=== PATIENT | male | born 1945 | race Caucasian/White ===

== ENCOUNTER 2019-07-24 07:37 | Observation (INO) | payer OTHER, SELFPAY ==
[2019-07-24] VITALS (11 sets, daily range): BP systolic 110–160; BP diastolic 55–83; PULSE 49–63; RESP 14–20; TEMP 36.4–36.9; O2SAT 92–97; BMI 35.9
--- NOTE | 2019-07-24 07:41 | ED_ITS ---
Entered by Haily Escobar, acting as scribe for Jozef Jason DO HPI - Chest Pain General: Chief Complaint: Chest Pain Stated Complaint: CP AFTER CHEMICAL EXPOSURE Time Seen by Provider: 07/24/19 07:43 Source: patient Mode of arrival: ambulatory Limitations: no limitations History of Present Illness: HPI narrative: 74 yo male presents with chest pain . pt states this started today. pt did fall today, denies injuries. pt states when walking or doing things around the house makes the pain worse and rest makes this better. Patient is concerned that this started after he has been working in a house where he thought there was some dust chemicals or mold that he may have been exposed to. He relates he gets chest pain with exertion when he stops and rests it makes it better within a few minutes. He has no known previous history of coronary artery disease. Denies fever sweats or chills denies productive cough. MD complaint: chest pain Onset (ago): day(s) (today) Timing of current episode: constant and still present Onset: during exertion Pain location: substernal Pain radiation: none Severity: mild Quality: aching Relieving factors: rest Exacerbating factors: exertion Associated symptoms: Reports other (fall); Deny abdominal pain, dyspnea, fever(s), nausea or vomiting Treatment prior to arrival: none Review of Systems General: Reports: 10 or more systems reviewed and unremarkable except in HPI and below Const: Denies: fever, chills, body aches, change in appetite, fatigue or malaise ENMT: Denies: throat pain, ear pain, nasal discharge or nasal congestion Card: Reports: chest pain and shortness of breath on exertion; Denies: edema or shortness of breath when lying down Resp: Denies: shortness of breath, productive cough or non-productive cough GI: Denies: abdominal pain, nausea, vomiting, vomiting blood, coffee grounds in vomit, diarrhea, constipation, bloating, blood in stool or black tarry stool : Denies: flank pain, painful urination, urinary frequency or urinary urgency Skin/Breast: Denies: rash or itching [facility] ED PFSH: Medical History Benign essential hypertension with target blood pressure below 140/90 Chlorthalidone added BPH (benign prostatic hyperplasia) Chronic back pain COPD (chronic obstructive pulmonary disease) COPD exacerbation No evidence of COPD exacerbation Dyslipidemia Elevated cholesterol noted. Will refer to primary care provider Hypertension PTSD (post-traumatic stress disorder) Surgical History History of appendectomy History of back surgery Family History Mother Cancer Social History Smoking and tobacco status: former smoker Alcohol intake: never Physical Exam Const: COMMON NORMALS: no apparent distress GENERAL APPEARANCE: cooperative and comfortable ORIENTATION/CONSCIOUSNESS: Yes awake, Yes oriented to person, Yes oriented to place and Yes oriented to time HENMT: COMMON NORMALS: normocephalic, head/scalp atraumatic, hearing grossly normal bilaterally, external ears normal, EAC's normal, TM's normal bilaterally, nasal mucous membranes and turbinates normal, moist oral mucous membranes and oropharynx normal HEAD & SCALP: normocephalic and atraumatic NOSE: nasal mucous membranes and turbinates normal EXTERNAL EAR: Yes external ears normal EXTERNAL AUDITORY CANAL: EAC's normal TYMPANIC MEMBRANE: TM's normal bilaterally Eye: COMMON NORMALS: PERRL, EOMs intact bilaterally, conjunctivae normal and no scleral icterus CONJUNCTIVA: Yes conjunctivae normal PUPIL: Yes PERRL Neck/C-Spine: COMMON NORMALS: full ROM, no lymphadenopathy, supple and no JVD Lymph: LYMPHATIC: no lymphadenopathy noted and no lymphedema noted Resp: COMMON NORMALS: normal respiratory effort, no retractions, no use of accessory muscles and clear to auscultation bilaterally AUSCULTATION: clear to auscultation bilaterally Cardio: COMMON NORMALS: no JVD GI: COMMON NORMALS: soft to palpation and no hepatosplenomegaly AUSCULTATION: Yes normoactive bowel sounds PALPATION: Yes soft, No tender, No guarding and Yes no hepatosplenomegaly Extremity: COMMON NORMALS: normal to inspection, normal capillary refill, no clubbing, cyanosis or edema, no calf tenderness and no pedal edema Neuro: SENSORIUM/ORIENTATION: Yes oriented to person, Yes oriented to place and Yes oriented to time Skin: COMMON NORMALS: no rashes or lesions noted GENERAL SKIN EXAM: no rashes or lesions noted Course ED course: Discussed with the patient a more concerned of the reports of chest pain with exertion and relieved by rest. He does not show any signs of any kind of hypersensitive pneumonitis or pneumonia. He should have a full cardiac evaluation discussed Dr. Shaw he will admit patient for rule out and further evaluation. Vital Signs: Vital signs: Vital Signs Temperature 97.9 F 07/25/19 12:33 Pulse Rate 64 07/25/19 12:33 Respiratory Rate 20 H 07/25/19 12:33 Blood Pressure 120/73 07/25/19 12:33 Pulse Oximetry 95 07/25/19 12:33 MDM - Chest Pain Lab Data: Labs: Lab Results 07/24/19 07/24/19 07/24/19 Range/Units 08:03 08:41 08:41 WBC 6.9 (4.0-10.0) 10^3/ uL RBC 4.40 (4.1-5.3) 10^6/u L Hgb 14.3 (11.7-16.6) g/dL Hct 43.2 (42.0-52.0) % MCV 98.2 H (80-94) fL MCH 32.5 (28.0-34.0) pg MCHC 33.1 (30.0-36.0) g/dL RDW 13.2 (12.1-15.1) % Plt Count 146 (130-400) 10^3/c mm MPV 12.3 H (7.4-10.4) fL Neut % (Auto) 68.5 % Lymph % (Auto) 21.8 % [place] % (Auto) 7.0 % Eos % (Auto) 2.0 % Baso % (Auto) 0.6 % Neut # (Auto) 4.7 (1.8-7.7) 10^3/u L Lymph # (Auto) 1.5 (0.8-4.8) 10^3/u L [place] # (Auto) 0.5 (0.2-0.9) 10^3/u L Eos # (Auto) 0.1 (0.0-0.8) 10^3/u L Baso # (Auto) 0.0 (0.0-0.1) 10^3/u L Nucleated RBC % (a uto) 0 % Nucleated RBCs # 0.0 /100WBC Sodium 133 L (136-145) mmol/L Potassium 4.7 (3.5-5.1) mmol/L Chloride 97 L (98-107) mmol/L Carbon Dioxide 26 (22-29) mmol/L Anion Gap 14.7 (5-19) BUN 14 (8-23) mg/dL Creatinine 0.9 (0.7-1.2) mg/dL Glucose 132 H (65-115) mg/dL Calcium 9.4 (8.5-10.5) mg/dL Total Bilirubin 0.3 (0.15-1.2) mg/dL AST 16 (0-40) U/L ALT 26 (0-41) U/L Alkaline Phosphata se 74 (40-130) IU/L Troponin T Baselin e 9 (0-15) ng/mL Troponin T 120 [place] (0-15) ng/mL Delta Troponin T (0-10) ABS# Total Protein 6.8 (6.6-8.7) g/dL Albumin 3.9 (3.5-5.2) g/dL Globulin 2.9 (1.3-4.6) g/dL TSH (0.27-4.20) uIU/ mL 07/24/19 07/24/19 Range/Units 10:48 10:48 WBC (4.0-10.0) 10^3/ uL RBC (4.1-5.3) 10^6/u L Hgb (11.7-16.6) g/dL Hct (42.0-52.0) % MCV (80-94) fL MCH (28.0-34.0) pg MCHC (30.0-36.0) g/dL RDW (12.1-15.1) % Plt Count (130-400) 10^3/c mm MPV (7.4-10.4) fL Neut % (Auto) % Lymph % (Auto) % [place] % (Auto) % Eos % (Auto) % Baso % (Auto) % Neut # (Auto) (1.8-7.7) 10^3/u L Lymph # (Auto) (0.8-4.8) 10^3/u L [place] # (Auto) (0.2-0.9) 10^3/u L Eos # (Auto) (0.0-0.8) 10^3/u L Baso # (Auto) (0.0-0.1) 10^3/u L Nucleated RBC % (a uto) % Nucleated RBCs # /100WBC Sodium (136-145) mmol/L Potassium (3.5-5.1) mmol/L Chloride (98-107) mmol/L Carbon Dioxide (22-29) mmol/L Anion Gap (5-19) BUN (8-23) mg/dL Creatinine (0.7-1.2) mg/dL Glucose (65-115) mg/dL Calcium (8.5-10.5) mg/dL Total Bilirubin (0.15-1.2) mg/dL AST (0-40) U/L ALT (0-41) U/L Alkaline Phosphata se (40-130) IU/L Troponin T Baselin e (0-15) ng/mL Troponin T 120 [place] 7.68 (0-15) ng/mL Delta Troponin T -1.32 L (0-10) ABS# Total Protein (6.6-8.7) g/dL Albumin (3.5-5.2) g/dL Globulin (1.3-4.6) g/dL TSH 1.62 (0.27-4.20) uIU/ mL Imaging Data^: CXR: Radiologist's impression: [address] [address] XRay Report Signed Patient: Mony Yan #: [id number] : 1945cct#:[id number] Age/Sex: 74 / MADM Date: 07/24/19 Loc: ERRoom/Bed: Attending Dr: Ordering Provider/Ordering MD: Jozef Jason DO Date of Service: 07/24/19 Procedure(s): XR chest 1V portable [id number] Accession Number(s): [id number] Report Number: [id number] PROCEDURE INFORMATION: Exam: XR Chest, 1 View Exam date and time: 07/24/2019 8:13 AM Age: 74 years old Clinical indication: Chest pain; Additional info: Chest pain, sprayed mold with chemical w/o mask TECHNIQUE: Imaging protocol: XR of the chest Views: 1 view. COMPARISON: No relevant prior studies available. FINDINGS: Lungs: Unremarkable. No consolidation. Pleural space: Unremarkable. No pleural effusion. No pneumothorax. Heart/Mediastinum: Unremarkable. No cardiomegaly. Bones/joints: Unremarkable. XR/XR chest 1V portable [id number] IMPRESSION: No acute findings. Dictated By:Gage Luna MD Signed By:Gage Luna MDSigned Date/Time:07/24/19 1022 Discharge Plan Discharge Patient Disposition: Admitted As Inpatient Admit Provider: Niles Shaw Clinical Impression: Chest pain, Benign essential hypertension with target blood pressure below 140/90 Condition: Stable Discharge Orders: Discharge Order (Routine); Ordered 07/25/19 Ordered By: Niles Shaw Discharge Diet: Cardiac Discharge Activity: Increase activity as tolerated Interventions: ED Discharge Assessment Last Done: 07/24/19 12:53 Discharge Date/Time: 07/24/19 12:53 Coding Level of Care Code ED Floater Operator for Chg Fwd Exam Comprehensive The documentation recorded by the Shawn pa Bridget Annette, parag re flects the service I personally performed and the decisions made by Eren almaraz Curtis L, DO Jul 24, 2019 07:37
--- NOTE | 2019-07-24 08:01 | ECG_ITS ---
Measurements Intervals [place] Rate: 60 P: -56 MT: 274 QRS: 15 QRSD: 157 T: 76 QT: 458 QTc: 461 SINUS RHYTHM WITH FIRST DEGREE AV BLOCK LEFT BUNDLE BRANCH BLOCK No previous ECG available for comparison Electronically Signed On 07-24-2019 11:09:01 [employer]LE[employer] SYSTEM OPERATOR by Suzy Knight M.D. [id number]
--- NOTE | 2019-07-24 08:01 | XRR_ITS ---
PROCEDURE INFORMATION: Exam: XR Chest, 1 View Exam date and time: 07/24/2019 8:13 AM Age: 74 years old Clinical indication: Chest pain; Additional info: Chest pain, sprayed mold with chemical w/o mask TECHNIQUE: Imaging protocol: XR of the chest Views: 1 view. COMPARISON: No relevant prior studies available. FINDINGS: Lungs: Unremarkable. No consolidation. Pleural space: Unremarkable. No pleural effusion. No pneumothorax. Heart/Mediastinum: Unremarkable. No cardiomegaly. Bones/joints: Unremarkable. XR/XR chest 1V portable [id number] IMPRESSION: No acute findings.
--- NOTE | 2019-07-24 08:20 | PC.NURSE ---
portable xray at bedside
[2019-07-24] MEDS: aspirin 81 mg Chew Tablet 324 MG PO (08:26)
[2019-07-24 08:35] LABS: Basophils % 0.6 %; Eosinophils # 0.1 10^3/uL (0.0-0.8); Hematocrit 43.2 % (42.0-52.0); Hemoglobin 14.3 g/dL (11.7-16.6); Lymphocytes # 1.5 10^3/uL (0.8-4.8); Lymphocytes % 21.8 %; Mean Corpuscular HGB Conc 33.1 g/dL (30.0-36.0); Mean Corpuscular Hemoglobin 32.5 pg (28.0-34.0); Mean Corpuscular Volume 98.2 fL (80-94); Mean Platelet Volume 12.3 fL (7.4-10.4); Monocytes # 0.5 10^3/uL (0.2-0.9); Neutrophils # 4.7 10^3/uL (1.8-7.7); Neutrophils % 68.5 %; Nucleated Red Blood Cells % 0 %; Platelet Count 146 10^3/cmm (130-400); Red Cell Distribution Width 13.2 % (12.1-15.1); White Blood Count 6.9 10^3/uL (4.0-10.0)
[2019-07-24 09:00] LABS: Alanine Aminotransferase 26 U/L (0-41); Albumin Level 3.9 g/dL (3.5-5.2); Alkaline Phosphatase 74 IU/L (40-130); Anion Gap 14.7 (5-19); Aspartate Amino Transferase 16 U/L (0-40); Blood Urea Nitrogen 14 mg/dL (8-23); Calcium 9.4 mg/dL (8.5-10.5); Carbon Dioxide 26 mmol/L (22-29); Chloride 97 mmol/L (98-107); Globulin 2.9 g/dL (1.3-4.6); Glucose 132 mg/dL (65-115); Potassium 4.7 mmol/L (3.5-5.1); Sodium 133 mmol/L (136-145); Total Bilirubin 0.3 mg/dL (0.15-1.2); Total Protein 6.8 g/dL (6.6-8.7)
[2019-07-24 09:03] LABS: Troponin(5th) Baseline 9 ng/mL (0-15)
[2019-07-24 11:14] LABS: Troponin 5 2HR 7.68 ng/mL (0-15)
[2019-07-24 11:28] LABS: Troponin 5 2HR Delta -1.32 ABS# (0-10)
[2019-07-24] MEDS: enoxaparin 120 mg/0.8 mL Syringe 110 MG SUBCUT (11:33)
--- NOTE | 2019-07-24 12:58 | PM.HP ---
Providers/Chief Complaint Admitting Physician: Niles Shaw MD Primary Care Provider: Steve Cantu DO Chief Complaint: CHEST PAIN History of Present Illness Melvin Yan is a 74 year old male who presented to the hospital with complaints of chest discomfort and shortness of breath. He reports he believes this started a week ago when he had some mold exposure as he was cleaning some mold off a surface in a house. He reports since then with any exertion he will get short of breath, and have some chest discomfort. He initially told me the discomfort seems to be when he takes a breath, but then relates that is a heavy feeling in his chest when he exerts himself. Occasionally he will get some discomfort down his right arm. He reports he will have an occasional cough. He denies any hemoptysis. He reports no fever. He has not noticed any wheezing. He reports he feels fine when he sits still. He denies any vomiting, diarrhea, or other illness. He does not know of any flu exposure. He states he had a nuclear stress test performed a little over 6 months ago, at [facility]. He states this was preoperative and he was not having symptoms at that time. Review of Systems General: Reports: 10 or more systems reviewed and unremarkable except in HPI and below Const: Denies: fever or chills Eyes: Denies: blurry vision ENMT: Denies: throat pain Card: Reports: chest pain and shortness of breath on exertion Resp: Reports: shortness of breath GI: Denies: abdominal pain, nausea or vomiting : Denies: flank pain Musc: Reports: back pain Skin/Breast: Denies: rash Neuro: Denies: headache Psych: Denies: anxiety Endo: Denies: excessive urination Joseph/Lymph: Denies: easy bleeding All/Imm: Denies: hives Medications/Allergies Home Medications Medication Instructions Recorded Confirmed Last Taken Type Fiber-Tabs 3 tab PO BID 07/24/19 07/24/19 Unknown History Fish Oil 1 cap PO BID 07/24/19 07/24/19 Unknown History albuterol sulfate [ProAir HFA] 2 puff INHALATION QID PRN 07/24/19 07/24/19 Unknown History amlodipine [Norvasc] 10 mg PO DAILY 07/24/19 07/24/19 Unknown History benazepril 20 mg PO BID 07/24/19 07/24/19 Unknown History budesonide-formoterol [Symbicort] 2 puff INHALATION BID 07/24/19 07/24/19 Unknown History cetirizine [Zyrtec] 10 mg PO DAILY 07/24/19 07/24/19 Unknown History cyclobenzaprine 10 mg PO TID PRN 07/24/19 07/24/19 Unknown History garlic 2 tab PO DAILY 07/24/19 07/24/19 Unknown History hydrocodone-acetaminophen [[place]] See Rx Instructions .ROUTE .COMPLEX 07/24/19 07/24/19 Unknown History metoprolol succinate 100 mg PO BID 07/24/19 07/24/19 Unknown History multivitamin [Multiple Vitamins] 1 tab PO DAILY 07/24/19 07/24/19 Unknown History potassium gluconate 1 tab PO DAILY 07/24/19 07/24/19 Unknown History sertraline 100 mg PO DAILY 07/24/19 07/24/19 Unknown History tamsulosin [Flomax] 0.4 mg PO DAILY 07/24/19 07/24/19 Unknown History Allergies Allergy/AdvReac Type Severity Reaction Status Date / Time No Known Allergies Allergy Verified 07/24/19 09:04 PFSH Acute PFSH: Medical History (Updated 07/24/19 @ 13:04 by Niles Shaw MD) BPH (benign prostatic hyperplasia) Chronic back pain COPD (chronic obstructive pulmonary disease) Hypertension PTSD (post-traumatic stress disorder) Surgical History (Updated 07/24/19 @ 13:02 by Niles Shaw MD) History of appendectomy History of back surgery Family History (Updated 07/24/19 @ 13:02 by Niles Shaw MD) Mother Cancer Social History (Updated 07/24/19 @ 13:02 by Niles Shaw MD) Smoking and tobacco status: former smoker Alcohol intake: never Substance/Drug Use: never Supplemental PFSH Information: Family history of colon cancer. Vitals/I&O/Wt Last Vital Signs Pulse 53 L 07/24/19 11:35 Resp 16 07/24/19 11:35 BP 135/70 07/24/19 11:35 Pulse Ox 95 07/24/19 11:35 Weight last 48 hrs Weight 113.398 kg Physical Exam Narrative: EXAM NARRATIVE: General exam demonstrates an obese white male in no apparent distress, denying any chest discomfort HEENT: Pupils equally round. Oropharynx clear. Neck is supple no lymphadenopathy or thyromegaly Cardiovascular regular rate and rhythm with a 2/6 systolic murmur heard best in the aortic area Lungs clear no wheezing or crackles Abdomen is soft with positive bowel sounds. No obvious organomegaly was deferred Extremities no cyanosis clubbing or edema, cap refill brisk Skin no rash Neuro no focal deficits Data : 07/24/19 08:03 07/24/19 08:41 Other data: Troponin is negative. Chest x-ray shows no infiltrate EKG demonstrates sinus bradycardia, left bundle branch block A&P Assessment and plan (1) Chest pain: Exertional symptoms are somewhat concerning for angina. Unfortunately we do not have the ability to do nuclear stress testing this weekend. Initial troponins are negative. Continue to trend troponin Check echocardiogram secondary to heart murmur, chest discomfort Check TSH Cardiology consultation Aspirin Continue beta-joe Check lipid profile Telemetry Nitroglycerin as needed Observation patient Status: Acute Code(s): R07.9 - Chest pain, unspecified Additional A&P Information COPD, no evidence of exacerbation Chronic back pain Hypertension Obesity History of PTSD DVT prophylaxis with Lovenox Full code Request records from last stress test. Attestations Medical Necessity Statement*: Will need less than 2 midnight stay for evaluation of chest discomfort. Coding Level of Care Code Acute Music Engineer for g Manuel Diagnoses Chest pain R07.9
--- NOTE | 2019-07-24 14:01 | ECG_ITS ---
Measurements Intervals [place] Rate: 50 P: -30 ME: 292 QRS: 15 QRSD: 156 T: 60 QT: 499 QTc: 458 SINUS BRADYCARDIA WITH FIRST DEGREE AV BLOCK LEFT BUNDLE BRANCH BLOCK [120+ ms QRS DURATION, 80+ ms Q/S IN V1/V2, 85+ ms R IN I/aVL/V5/V6] No previous ECG available for comparison Electronically Signed On 07-24-2019 11:13:51 LEASE BROKER by Suzy Knight M.D. [email or web address]
[2019-07-24 14:09] LABS: Thyroid Stimulating Hormone 1.62 uIU/mL (0.27-4.20)
--- NOTE | 2019-07-24 14:49 | PM.CONSULT ---
Providers/Reason For Consult Consulting Physican/Specialty*: MAVERICK Dueñas MD /cardiology Reason for Consult*: Patient with chest pain/shortness of breath. History of hypertension/dyslipidemia Attending Physician: Niles Shaw MD Primary Care Provider: Steve Cantu DO History of Present Illness History of Present Illness Melvin Yan is a 74 year old male presenting with shortness of breath and chest discomfort. Mr. Yan has a history of hypertension and dyslipidemia. He recently had a bout of respiratory infection,? Pneumonia. He was treated with antibiotics and almost got over it. Last Saturday, he was spraying some chemicals for mold on the wall of his bedroom. He started getting short of breath on the following day. The symptoms gradually got worse for the last few days. He also was having some chest tightness/pain intermittently that get worse with breathing. He did not have any fever or chills. But he was having a cough. The cough is mostly dry. The pain was across the chest. No other associated symptoms or radiation of pain. He has no history for any coronary disease, myocardial infarction or congestive heart failure. He had a stress test in November of last year at the [facility] as part of the preop evaluation for some urological procedures. He also had an echocardiogram at that time. Details are not available. He has a history of heart murmur. He has been taking medication for the high blood pressure. But he refused to take any medicine for the cholesterol. The patient seems to think that the cholesterol medicines are useless and the pharmaceutical companies are trying to make money out of it!. Review of Systems Narrative: CONSTITUTIONAL: No fever or chills. EYES: No blurring of vision or other visual disturbances lately. ENT: No hoarseness of voice, auditory disturbances or sore throat. CARDIOVASCULAR: As mentioned above. RESPIRATORY: History of COPD with recurrent exacerbations. Cough. GASTROINTESTINAL: No hematemesis or melena. GENITOURINARY: History of ureteric obstruction INTEGUMENTARY: No skin rashes or history of skin cancer. NEURO: No transient ischemic attacks or amaurosis. PSYCHIATRIC: HEMATOLOGIC: No bleeding disorders or significant anemia. ENDOCRINE: No history of polyuria or polydipsia. MUSCULOSKELETAL: Chronic back pain ALLERGY/IMMUNOLOGY: As mentioned above. Meds/Allergies Home Medications and Allergies Home Medications Medication Instructions Recorded Confirmed Type Fiber-Tabs 3 tab PO BID 07/24/19 07/24/19 History Fish Oil 1 cap PO BID 07/24/19 07/24/19 History albuterol sulfate [ProAir HFA] 2 puff INHALATION QID PRN 07/24/19 07/24/19 History amlodipine [Norvasc] 10 mg PO DAILY 07/24/19 07/24/19 History benazepril 20 mg PO BID 07/24/19 07/24/19 History budesonide-formoterol [Symbicort] 2 puff INHALATION BID 07/24/19 07/24/19 History cetirizine [Zyrtec] 10 mg PO DAILY 07/24/19 07/24/19 History cyclobenzaprine 10 mg PO TID PRN 07/24/19 07/24/19 History garlic 2 tab PO DAILY 07/24/19 07/24/19 History hydrocodone-acetaminophen [[place]] See Rx Instructions .ROUTE .COMPLEX 07/24/19 07/24/19 History metoprolol succinate 100 mg PO BID 07/24/19 07/24/19 History multivitamin [Multiple Vitamins] 1 tab PO DAILY 07/24/19 07/24/19 History potassium gluconate 1 tab PO DAILY 07/24/19 07/24/19 History sertraline 100 mg PO DAILY 07/24/19 07/24/19 History tamsulosin [Flomax] 0.4 mg PO DAILY 07/24/19 07/24/19 History Allergies Allergy/AdvReac Type Severity Reaction Status Date / Time No Known Allergies Allergy Verified 07/24/19 09:04 Current Medications Current Medications Acetaminophen (Tylenol) 650 mg PO Q6H PRN PRN Reason: Mild/Mod Pain Or Temp >/= 101 Hydrocodone Bitart/Acetaminophen ([place] 10-325 Mg) 0.5 - 1 tab PO BID PRN PRN Reason: PAIN Albuterol Sulfate (Albuterol) 2.5 mg INHALATION Q4H.RESPIRATORY PRN PRN Reason: SHORTNESS OF BREATH Amlodipine Besylate (Norvasc) 10 mg PO DAILY SUPA Cetirizine HCl (Zyrtec) 10 mg PO DAILY SUPA Cyclobenzaprine HCl (Flexeril) 10 mg PO TID PRN PRN Reason: Spasms Enoxaparin Sodium (Lovenox) 40 mg SUBCUT Q24H SUPA Lisinopril (Prinivil) 20 mg PO BID SUPA Metoprolol Succinate (Toprol Xl) 100 mg PO BID SUPA Nitroglycerin (Nitrostat) 0.4 mg SUBLINGUAL Q5M PRN PRN Reason: CHEST PAIN Ondansetron HCl (Zofran) 4 mg IVP Q6H PRN PRN Reason: vomiting, or N/V if npo Fluticasone/Salmeterol (Advair Diskus 500-50) 1 puff INHALATION BID.RESPIRATORY SUPA Sertraline HCl (Zoloft) 100 mg PO DAILY SUPA Tamsulosin HCl (Flomax) 0.4 mg PO DAILY SUPA PFSH Acute PFSH: Medical History (Updated 07/24/19 @ 15:52 by Lisset Dueñas MD) Benign essential hypertension with target blood pressure below 140/90 BPH (benign prostatic hyperplasia) Chronic back pain COPD (chronic obstructive pulmonary disease) COPD exacerbation Dyslipidemia Hypertension PTSD (post-traumatic stress disorder) Surgical History History of appendectomy History of back surgery Family History Mother Cancer Social History Smoking and tobacco status: former smoker Alcohol intake: never Substance/Drug Use: never Vitals/I&O/Wt Last Vital Signs Temp 977.0 F H 07/24/19 13:38 Pulse 58 L 07/24/19 13:38 Resp 20 H 07/24/19 13:38 BP 160/79 07/24/19 13:38 Pulse Ox 96 07/24/19 13:38 Weight last 48 hrs Weight 250 lb Physical Exam Narrative: EXAM NARRATIVE: GENERAL: The patient is alert and oriented times three. Not in any acute distress. HEENT: No significant pallor, icterus or lymphadenopathy. The pupils are reactant to light. Oral cavity: There are no mucous membrane lesions. Funduscopic examination: The fundus is not visualized NECK: Trachea appears to be central. No masses noted. No JVD or thyromegaly appreciated. No carotid bruit. RESPIRATORY: Chest is symmetrical. No intercostals muscle retraction or any accessory muscle activation. There is no chest wall tenderness. Breath sounds are heard bilaterally. Scattered expiratory wheezing. Occasional coarse crackles. No evidence of consolidation. BREASTS: Deferred. HEART: The PMI could not be palpated. No other palpable precordial events. No palpable precordial events. S1 and S2 are normal. No S3 or S4 heard. No pericardial rub or any click heard. ABDOMEN: No vessel pulsations or distention. No tenderness. No organomegaly appreciated. No abdominal bruit. Bowel sounds are normally heard. : Deferred. RECTAL: Deferred. LYMPHATIC: No lymphadenopathy noted in the neck or groin. EXTREMITIES: No edema or cyanosis. No clubbing. The pulses are symmetrical bilaterally. The radial, femoral, dorsalis pedis and the posterior tibial pulses are palpated and found to be in good volume and amplitude. MUSCULOSKELETAL: No acute joint deformities or swelling SKIN: There are no significant scars or skin rash noted. NEUROPSYCHIATRIC: The patient is alert and oriented x3. Appears to be in a good mood. The higher functions are grossly within normal limits. No tremors or rigidity noted. Data Labs: Other Labs: Abnormal lab results 07/24/19 07/24/19 07/24/19 Range/Units 08:03 08:41 10:48 MCV 98.2 H (80-94) fL MPV 12.3 H (7.4-10.4) fL Sodium 133 L (136-145) mmol/L Chloride 97 L (98-107) mmol/L Glucose 132 H (65-115) mg/dL Delta Troponin T -1.32 L (0-10) ABS# Imaging^: CXR: My impression: Normal cardiac silhouette. No lung infiltrates. No acute pathology noted EKG^: EKG 1: My Interpretation: Normal sinus rhythm with left bundle branch block pattern. First-degree AV block. No other significant changes were noted A&P Assessment and plan (1) Chest pain: Patient chest pain is very atypical. He has a pleuritic component for the pain. In view of the multiple risk factors for coronary disease, possibility of coronary ischemia causing this is a consideration. Currently he seems to be stable. He may have some occasional pleuritic type of pain. The EKG is uninterpretable due to baseline changes. No evidence of myocardial injury. For further evaluation of his symptoms, an echocardiogram would be helpful. We will try to get the stress test report from [facility] Status: Acute Qualifiers: Chest pain type: precordial pain Qualified Code(s): R07.2 - Precordial pain Code(s): R07.9 - Chest pain, unspecified (2) COPD exacerbation: May optimize the bronchodilator treatment. I may do a BMP to evaluate for any CHF. Optimize the antihypertensive medications. Status: Acute Code(s): J44.1 - Chronic obstructive pulmonary disease with (acute) exacerbation (3) Dyslipidemia: Patient is known to have dyslipidemia for many years. Take any statins. Current lipid profile is not known. Status: Acute Code(s): E78.5 - Hyperlipidemia, unspecified (4) Benign essential hypertension with target blood pressure below 140/90: Currently he has stage II hypertension. We will try to optimize the antihypertensive medications. I may add chlorthalidone 25 mg p.o. daily in addition to the current medications, for better control of the blood pressure. Status: Acute Code(s): I10 - Essential (primary) hypertension Additional A&P Information Patient has a history of posttraumatic stress disorder. No history for any severe peripheral artery disease. After reviewing the above test results and also based on the patient's clinical progress, further recommendations will be made. Thank you for the opportunity to evaluate this patient and make these recommendations Coding Level of Care Code Acute Drafter Detail for Lalo Jackson Diagnoses Chest pain R07.2 Chest pain type: precordial pain COPD exacerbation J44.1 Dyslipidemia E78.5 Benign essential hypertension with target blood pressure below 140/90 I10
[2019-07-24 15:46] LABS: Troponin 5 6HR 7.47 ng/mL (0-15)
[2019-07-24 15:58] LABS: Troponin 5 6HR Delta -1.53 ng/L (0-12)
[2019-07-24] MEDS: metoprolol succinate ER (24 HR) 100 mg Tablet PO (17:40)
[2019-07-24] MEDS: lisinopril 20 mg Tablet PO (17:40)
[2019-07-24] MEDS: pneumococcal (23 valent) SDV 0.5 mL IM (17:41)
[2019-07-24] MEDS: HYDROcodone-acetaminophen 10-325 mg Tablet PO (18:11)
[2019-07-24 22:34] LABS: NT Pro B Type Natriuretic Pept 269 pg/mL (0-125)
[2019-07-25] VITALS: BP 132/68; PULSE 69; RESP 18; TEMP 37; O2SAT 95
[2019-07-25 04:00] VITALS: BP 132/76; PULSE 55; RESP 17; TEMP 36.6; O2SAT 92
[2019-07-25 06:05] LABS: Basophils % 0.4 %; Eosinophils # 0.1 10^3/uL (0.0-0.8); Eosinophils % 2.9 %; Hematocrit 40.1 % (42.0-52.0); Hemoglobin 13.2 g/dL (11.7-16.6); Lymphocytes # 1.4 10^3/uL (0.8-4.8); Lymphocytes % 28.8 %; Mean Corpuscular HGB Conc 32.9 g/dL (30.0-36.0); Mean Corpuscular Hemoglobin 32.4 pg (28.0-34.0); Mean Corpuscular Volume 98.5 fL (80-94); Mean Platelet Volume 11.1 fL (7.4-10.4); Monocytes # 0.4 10^3/uL (0.2-0.9); Monocytes % 8.2 %; Neutrophils # 2.9 10^3/uL (1.8-7.7); Neutrophils % 59.3 %; Nucleated Red Blood Cells % 0 %; Platelet Count 146 10^3/cmm (130-400); Red Blood Count 4.07 10^6/uL (4.1-5.3); Red Cell Distribution Width 13.2 % (12.1-15.1); White Blood Count 4.9 10^3/uL (4.0-10.0)
[2019-07-25 06:32] LABS: Anion Gap 11.8 (5-19); Blood Urea Nitrogen 15 mg/dL (8-23); Calcium 9.4 mg/dL (8.5-10.5); Carbon Dioxide 29 mmol/L (22-29); Chloride 103 mmol/L (98-107); Glucose 120 mg/dL (65-115); Osmolality Calculated 285 mOsm/kg (285-295); Potassium 4.8 mmol/L (3.5-5.1); Sodium 139 mmol/L (136-145)
[2019-07-25 07:39] VITALS: BP 147/81; PULSE 55; RESP 18; TEMP 36.4; O2SAT 94
[2019-07-25 07:40] LABS: Chol HDL Ratio 6.88 mg/dL (1.0-5.00); Cholesterol 234 mg/dL (0-200); HDL Cholesterol 34 mg/dL (60-100); LDL Cholesterol Calculated 173 mg/dL (50-129); LDL HDL Ratio 5.09 RATIO (0.00-3.22); Triglycerides 136 mg/dL (0-150)
[2019-07-25] MEDS: chlorthalidone 25 mg Tablet PO (08:36)
[2019-07-25] MEDS: amlodipine 10 mg Tablet PO (08:36)
[2019-07-25] MEDS: tamsulosin 0.4 mg Capsule PO (08:36)
[2019-07-25] MEDS: lisinopril 20 mg Tablet PO (08:36)
[2019-07-25] MEDS: sertraline 100 mg Tablet PO (08:36)
[2019-07-25] MEDS: metoprolol succinate ER (24 HR) 100 mg Tablet PO (08:36)
[2019-07-25] MEDS: cetirizine 10 mg Tablet PO (08:37)
[2019-07-25 09:14] VITALS: PULSE 63; RESP 18; O2SAT 96
--- NOTE | 2019-07-25 10:32 | P.PN_ITS ---
Subjective Subjective: Interval history: The patient is feeling better. He continues to have some tightness in his chest intermittently. He seems to think that the medication might be stuck in his esophagus causing some discomfort. Denies any chest pain as such. Medications: Reviewed: Yes (The blood pressure seems to be getting under control. He is tolerating the chlorthalidone so far well.) Medication Review Details: Current Medications Acetaminophen (Tylenol) 650 mg PO Q6H PRN PRN Reason: Mild/Mod Pain Or Temp >/= 101 Hydrocodone Bitart/Acetaminophen ([place] 10-325 Mg) 0.5 - 1 tab PO BID PRN PRN Reason: PAIN Last Admin: 07/24/19 18:11 Dose: 1 tab Documented by: Albuterol Sulfate (Albuterol) 2.5 mg INHALATION Q4H.RESPIRATORY PRN PRN Reason: SHORTNESS OF BREATH Amlodipine Besylate (Norvasc) 10 mg PO DAILY [facility] Last Admin: 07/25/19 08:36 Dose: 10 mg Documented by: Cetirizine HCl (Zyrtec) 10 mg PO DAILY [facility] Last Admin: 07/25/19 08:37 Dose: 10 mg Documented by: Chlorthalidone (Thalitone) 25 mg PO DAILY [facility] Last Admin: 07/25/19 08:36 Dose: 25 mg Documented by: Cyclobenzaprine HCl (Flexeril) 10 mg PO TID PRN PRN Reason: Spasms Enoxaparin Sodium (Lovenox) 40 mg SUBCUT Q24H [facility] Lisinopril (Prinivil) 20 mg PO BID [facility] Last Admin: 07/25/19 08:36 Dose: 20 mg Documented by: Metoprolol Succinate (Toprol Xl) 100 mg PO BID [facility] Last Admin: 07/25/19 08:36 Dose: 100 mg Documented by: Nitroglycerin (Nitrostat) 0.4 mg SUBLINGUAL Q5M PRN PRN Reason: CHEST PAIN Ondansetron HCl (Zofran) 4 mg IVP Q6H PRN PRN Reason: vomiting, or N/V if npo Fluticasone/Salmeterol (Advair Diskus 500-50) 1 puff INHALATION BID.RESPIRATORY [facility] Last Admin: 07/25/19 09:13 Dose: 1 puff Documented by: Sertraline HCl (Zoloft) 100 mg PO DAILY [facility] Last Admin: 07/25/19 08:36 Dose: 100 mg Documented by: Tamsulosin HCl (Flomax) 0.4 mg PO DAILY [facility] Last Admin: 07/25/19 08:36 Dose: 0.4 mg Documented by: Vitals/I&O/Wt Last Vital Signs Temp 97.5 F L 07/25/19 07:39 Pulse 63 07/25/19 09:14 Resp 18 07/25/19 09:14 BP 147/81 07/25/19 07:39 Pulse Ox 96 07/25/19 09:14 07/24/19 07/25/19 07/25/19 22:59 06:59 14:59 Intake Total 240 / 240 240 / 240 Output Total 650 / 650 600 / 1250 500 / 500 Balance -410 / -410 -600 / -1010 -260 / -260 Weight last 48 hrs Weight 250 lb Physical Exam Narrative: EXAM NARRATIVE: GENERAL: The patient is alert and oriented times three. Not in any acute distress. HEENT: No significant pallor, icterus or lymphadenopathy. The pupils are reactant to light. Oral cavity: There are no mucous membrane lesions. NECK: Trachea appears to be central. No masses noted. No JVD or thyromegaly appreciated. No carotid bruit. RESPIRATORY: Chest is symmetrical. No intercostals muscle retraction or any accessory muscle activation. There is no chest wall tenderness. Breath sounds are heard bilaterally. Scattered expiratory wheezing. No evidence of consolidation. BREASTS: Deferred. HEART: The PMI could not be palpated. No other palpable precordial events. No palpable precordial events. S1 and S2 are normal. No S3 or S4 heard. No pericardial rub or any click heard. ABDOMEN: No vessel pulsations or distention. No tenderness. No organomegaly appreciated. No abdominal bruit. Bowel sounds are normally heard. : Deferred. RECTAL: Deferred. LYMPHATIC: No lymphadenopathy noted in the neck. EXTREMITIES: No edema or cyanosis. No clubbing. The pulses are symmetrical bilaterally. The radial, femoral, dorsalis pedis and the posterior tibial pulses are palpated and found to be in good volume and amplitude. MUSCULOSKELETAL: No acute joint deformities or swelling SKIN: There are no significant scars or skin rash noted. NEUROPSYCHIATRIC: The patient is alert and oriented x3. Appears to be in a good mood. The higher functions are grossly within normal limits. No tremors or rigidity noted. Data : 07/25/19 05:57 07/25/19 05:57 A&P Assessment and plan (1) Chest pain: Patient chest pain is very atypical. He has a pleuritic component for the pain. In view of the multiple risk factors for coronary disease, possibility of coronary ischemia causing this is a consideration. Currently he seems to be stable. He may have some occasional pleuritic type of pain. The EKG is uninterpretable due to baseline changes. No evidence of myocardial injury. Received medical records from [facility]. Results are as follows. Status: Acute Qualifiers: Chest pain type: precordial pain Qualified Code(s): R07.2 - Precordial pain Code(s): R07.9 - Chest pain, unspecified (2) COPD exacerbation: May optimize the bronchodilator treatment. BNP was slightly elevated. This could be related to the RV strain, from COPD exacerbation Abnormal lab results 07/24/19 07/24/19 07/24/19 Range/Units 10:48 15:00 15:00 RBC (4.1-5.3) 10^6/uL Hct (42.0-52.0) % MCV (80-94) fL MPV (7.4-10.4) fL Glucose (65-115) mg/dL Troponin I Hi Sens Del -1.53 L (0-12) ng/L Delta Troponin T -1.32 L (0-10) ABS# NT-Pro-B Natriuret Pep 269 H (0-125) pg/mL Cholesterol (0-200) mg/dL LDL Cholesterol, Calc (50-129) mg/dL HDL Cholesterol (60-100) mg/dL LDL/HDL Ratio (0.00-3.22) RATIO Cholesterol/HDL Ratio (1.0-5.00) mg/dL 07/25/19 07/25/19 07/25/19 Range/Units 05:57 05:57 05:57 RBC 4.07 L (4.1-5.3) 10^6/uL Hct 40.1 L (42.0-52.0) % MCV 98.5 H (80-94) fL MPV 11.1 H (7.4-10.4) fL Glucose 120 H (65-115) mg/dL Troponin I Hi Sens Del (0-12) ng/L Delta Troponin T (0-10) ABS# NT-Pro-B Natriuret Pep (0-125) pg/mL Cholesterol 234 H (0-200) mg/dL LDL Cholesterol, Calc 173 H (50-129) mg/dL HDL Cholesterol 34 L (60-100) mg/dL LDL/HDL Ratio 5.09 H (0.00-3.22) RATIO Cholesterol/HDL Ratio 6.88 H (1.0-5.00) mg/dL Status: Acute Code(s): J44.1 - Chronic obstructive pulmonary disease with (acute) exacerbation (3) Dyslipidemia: Patient is known to have dyslipidemia for many years. Take any statins. Current lipid profile is not known. Status: Acute Code(s): E78.5 - Hyperlipidemia, unspecified (4) Benign essential hypertension with target blood pressure below 140/90: Currently he has stage II hypertension. The blood pressure seems to be getting under control. May continue on the chlorthalidone Status: Acute Code(s): I10 - Essential (primary) hypertension Additional A&P Information Patient has a history of posttraumatic stress disorder. Echocardiogram is still pending. This will be done this morning. If there is no significant wall motion normalities by echocardiogram, patient may be discharged home today from a cardiac standpoint. May be scheduled for an outpatient myocardial perfusion imaging. May continue on the chlorthalidone Discussed with Dr. Niles Shaw Please make an appointment to be seen in the office by Madeleine Interiano in 1 week, Attestations Medical Necessity Statement*: Deferred to the primary Coding Level of Care Code Acute [facility]el for [facility] Fwd Diagnoses Chest pain R07.2 Chest pain type: precordial pain COPD exacerbation J44.1 Dyslipidemia E78.5 Benign essential hypertension with target blood pressure below 140/90 I10
[2019-07-25] MEDS: enoxaparin 40 mg/0.4 mL Syringe SUBCUT (10:50)
[2019-07-25 11:38] VITALS: BP 120/73; PULSE 64; RESP 20; TEMP 36.6; O2SAT 95
--- NOTE | 2019-07-25 12:20 | PM.DCS ---
Discharge Providers Date of Admission: 07/24/19 11:29 Date of Discharge: July 25, 2019 Attending Provider at Admission: Niles Shaw MD Attending Provider at Discharge: Niles Shaw MD Primary Care Provider: Steve Cantu DO Diagnoses at Discharge Discharge Diagnosis (1) Chest pain: Status: Acute Problem details: We received the medical records from [facility]. He had a myocardial perfusion imaging in October 2018. Basically there was no evidence of ischemia on the perfusion scan. He has an underlying left bundle branch block which is chronic Qualifiers: Chest pain type: precordial pain Qualified Code(s): R07.2 - Precordial pain (2) COPD exacerbation: Status: Acute Problem details: No evidence of COPD exacerbation (3) Dyslipidemia: Status: Acute Problem details: Elevated cholesterol noted. Will refer to primary care provider (4) Benign essential hypertension with target blood pressure below 140/90: Status: Acute Problem details: Chlorthalidone added Reason for Visit Reason for Visit: Reason For Visit: CHEST PAIN Hospital Course Hospital Course: Melvin is a 74-year-old white male who presented to the emergency department complaining of chest discomfort with exertion. He reported it was going on for a week, and he felt somewhat short of breath with it. He believes he was exposed to some mold. EKG demonstrated no specific concerning findings. Left bundle branch block, which was old was noted. Troponin was negative. Cardiology was consulted. Echocardiogram was performed which was not significantly remarkable other than possible bicuspid aortic valve. Chest x-ray was unremarkable. BNP slight elevation. Chlorthalidone was added to his medicine regimen. Cholesterol, LDL was also noted to be 173. He will discuss this with his primary care provider. We received records from [facility] and he had a negative nuclear imaging study in October. Taking all of this into account, it was thought it would be safe to discharge him home, with outpatient follow-up with cardiology, outpatient nuclear stress test. Risks and benefits discussed with the patient. While in the hospital he reports he was doing better and was chest discomfort free with any exertion. Physical Exam Narrative: EXAM NARRATIVE: General exam no apparent distress Cardiovascular regular rate and rhythm without murmur Lungs clear no wheezing or crackles Abdomen is soft with positive bowel sounds Extremities no cyanosis clubbing or edema Discharge Data Data Completed and Pending: Completed Studies During Hospitalization Category Date Time Status XR chest 1V andrea ble [id number] Stat Exams 07/24/19 08:01 Completed CV echo complete* [id number] Routine Ultrasound 07/25/19 13:06 Completed Labs from last 24 hours 07/25/19 07/25/19 07/25/19 05:57 05:57 05:57 WBC 4.9 RBC 4.07 L Hgb 13.2 Hct 40.1 L MCV 98.5 H MCH 32.4 MCHC 32.9 RDW 13.2 Plt Count 146 MPV 11.1 H Neut % (Auto) 59.3 Lymph % (Auto) 28.8 Bacon % (Auto) 8.2 Eos % (Auto) 2.9 Baso % (Auto) 0.4 Neut # (Auto) 2.9 Lymph # (Auto) 1.4 Bacon # (Auto) 0.4 Eos # (Auto) 0.1 Baso # (Auto) 0.0 Nucleated RBC % (a uto) 0 Nucleated RBCs # 0.0 Sodium 139 Potassium 4.8 Chloride 103 Carbon Dioxide 29 Anion Gap 11.8 BUN 15 Creatinine 0.8 Glucose 120 H Calculated Osmolal ity 285 Calcium 9.4 Troponin I 6 Hour Troponin I Hi Sens Del NT-Pro-B Natriuret Pep Triglycerides 136 Cholesterol 234 H LDL Cholesterol, C alc 173 H HDL Cholesterol 34 L LDL/HDL Ratio 5.09 H Cholesterol/HDL Ra brooks 6.88 H TSH 07/24/19 07/24/19 07/24/19 15:00 15:00 10:48 WBC RBC Hgb Hct MCV MCH MCHC RDW Plt Count MPV Neut % (Auto) Lymph % (Auto) Bacon % (Auto) Eos % (Auto) Baso % (Auto) Neut # (Auto) Lymph # (Auto) Bacon # (Auto) Eos # (Auto) Baso # (Auto) Nucleated RBC % (a uto) Nucleated RBCs # Sodium Potassium Chloride Carbon Dioxide Anion Gap BUN Creatinine Glucose Calculated Osmolal ity Calcium Troponin I 6 Hour 7.47 Troponin I Hi Sens Del -1.53 L NT-Pro-B Natriuret Pep 269 H Triglycerides Cholesterol LDL Cholesterol, C alc HDL Cholesterol LDL/HDL Ratio Cholesterol/HDL Ra brooks TSH 1.62 Vitals: Last Vital Signs Temp 97.9 F 07/25/19 11:38 Pulse 64 07/25/19 11:38 Resp 20 H 07/25/19 11:38 BP 120/73 02/29/20 11:38 Pulse Ox 95 07/25/19 11:38 Discharge Plan Discharge Patient Disposition: Home, Self-Care Condition: Stable Prescriptions: New nitroglycerin [Nitrostat] 0.4 mg Tablet, Sublingual 0.4 mg sublingual Q5M PRN (Reason: Chest Pain) Qty: 20 RF: 0 chlorthalidone 25 mg Tablet 25 mg PO DAILY Qty: 30 RF: 0 Continued Multiple Vitamins Tablet 1 tab PO DAILY RF: 0 cyclobenzaprine 10 mg Tablet 10 mg PO TID PRN (Reason: Spasms) RF: 0 Zyrtec 10 mg Tablet 10 mg PO DAILY RF: 0 metoprolol succinate 200 mg Tablet Extended Release 24 Hr 100 mg PO BID RF: 0 sertraline 100 mg Tablet 100 mg PO DAILY RF: 0 [place] 10-325 mg Tablet See Rx Instructions .ROUTE .COMPLEX RF: 0 Flomax 0.4 mg Capsule 0.4 mg PO DAILY RF: 0 Norvasc 10 mg Tablet 10 mg PO DAILY RF: 0 benazepril 20 mg Tablet 20 mg PO BID RF: 0 ProAir HFA 90 mcg/actuation Hfa Aerosol Inhaler 2 puff INHALATION QID PRN (Reason: Shortness Of Breath) RF: 0 garlic Tablet 2 tab PO DAILY RF: 0 Symbicort 160-4.5 mcg/actuation Hfa Aerosol Inhaler 2 puff INHALATION BID RF: 0 Fiber-Tabs 3 tab PO BID RF: 0 Fish Oil 1 cap PO BID RF: 0 potassium gluconate 1 tab PO DAILY RF: 0 Discharge Orders: Discharge Order (Routine); Ordered 07/25/19 Ordered By: Niles Shaw Other Ambulatory Orders: Sestamibi Stress Test Request (Routine) Timeframe: 2 Weeks Facility: [facility] - Location: Cardiac Diagnostic Laboratory Ordered By: Niles Shaw Referrals: Lisset Dueñas MD [Physician] - 2 weeks Nirav Barakat [Family Provider] - 4-7 days (Review of lipid profile, and whether this should be treated as well as follow-up.) Discharge Diet: Cardiac Discharge Activity: Increase activity as tolerated Activity Restrictions/Additional Instructions: Take all medicine as prescribed. Return for any severe discomfort. Outpatient nuclear stress test will be arranged. Discharge Attestations Time Spent in Discharge Care*: greater than 30 min Quality Metrics Clinical Quality Measures During this hospital stay, did patient experience: None Coding Level of Care Code Acute Residential Concierge for [facility]g Fwd Diagnoses Chest pain R07.2 Chest pain type: precordial pain COPD exacerbation J44.1 Dyslipidemia E78.5 Benign essential hypertension with target blood pressure below 140/90 I10
[2019-07-25 12:33] VITALS: BP 120/73; PULSE 64; RESP 20; TEMP 36.6; O2SAT 95
--- NOTE | 2019-07-25 13:06 | USCV_ITS ---
YuriyMelvin khan Age: 74 Gender: M : 1945 Exam Date: 07/25/2019 10:18 Ordering Phys: Niles Shaw MD Technologist: Daija Coy Exam Location: [facility] [place] Indication: CHEST PAIN BP: 147 / 81 HR: 63 Rhythm: Sinus Technical Quality: Suboptimal MEASUREMENTS (Male / Female) Normal Values 2D ECHO LV Diastolic Diameter PLAX 4.2 cm 4.2 - 5.9 / 3.9 - 5.3 cm LV Systolic Diameter PLAX 2.9 cm LV Chamber Size 3.8 cm IVS Diastolic Thickness 1.4 cm 0.6 - 1.0 / 0.6 - 0.9 cm IVS Systolic Thickness 1.6 cm LVPW Diastolic Thickness 0.9 cm 0.6 - 1.0 / 0.6 - 0.9 cm LVPW Systolic Thickness 1.3 cm RV Chamber Size 2.6 cm LVOT Diameter 2.1 cm LV Ejection Fraction 2D Teich 57.8 % LA Diameter 5.0 cm LA Width 3.4 cm LA Height 5.5 cm RA Width 3.2 cm RA Height 5.0 cm Aorta at Sinotubular Diameter 2.6 cm M-MODE LV Diastolic Diameter MM 5.9 cm 4.2 - 5.9 / 3.9 - 5.3 cm LV Systolic Diameter MM 4.2 cm LV Ejection Fraction MM Teich 55.0 % IVS Diastolic Thickness MM 1.3 cm 0.6 - 1.0 / 0.6 - 0.9 cm IVS Systolic Thickness MM 1.7 cm LVPW Diastolic Thickness MM 1.6 cm 0.6 - 1.0 / 0.6 - 0.9 cm LVPW Systolic Thickness MM 2.2 cm RV Diastolic Diameter MM 1.2 cm Aortic Annulus Diameter 3.2 cm LA Ao Ratio MM 1.6 MV E Point Septal Separation 0.7 cm DOPPLER AV Peak Velocity 220.0 cm/s LVOT Peak Velocity 131.0 cm/s AV Area Cont Eq vti 2.1 cm squared AV Area Cont Eq pk 2.0 cm squared MV Area PHT 3.1 cm squared Mitral E to A Ratio 1.2 MV E' Velocity 11.0 cm/s Mitral E to MV E' Ratio 9.7 Mitral E to LV E' Lateral Ratio 8.6 Mitral E to LV E' Septal Ratio 11.1 TR Peak Velocity 303.0 cm/s TR Peak Gradient 36.6 mmHg TV Peak E Velocity 63.0 cm/s Right Atrial Pressure 8.0 mmHg Pulmonary Artery Systolic Pressu 44.7 mmHg PV Peak Velocity 61.0 cm/s RV Acceleration Time 0.1 s RV Ejection Time 0.3 s RV AcT/ET 0.3 FINDINGS Left Ventricle Normal left ventricular size and systolic function, EF 55% . Abnormal septal motion consistent with conduction abnormality. Right Ventricle The right ventricle is normal in size and function. Right Atrium The right atrium is normal in size. Left Atrium Mildly increased left atrial size. Mitral Valve Mild mitral valve regurgitation. Aortic Valve Thickened aortic valve. Possible bicuspid aortic valve Tricuspid Valve Trace to mild tricuspid valve regurgitation. Pulmonic Valve Pulmonic valve not well visualized. Pericardium Normal pericardium without effusion. Aorta Normal ascending aorta dimension. CONCLUSIONS Normal left ventricular size and systolic function, EF 55% . Mildly increased left atrial size. Abnormal septal motion consistent with conduction abnormality. Thickened aortic valve. Possible bicuspid aortic valve with mild aortic valve stenosis Mild mitral and tricuspid regurgitation There is no pericardial effusion. There are no intracardiac masses. Dr Lisset Dueñas MD FACC (Electronically Signed) Final Date: 25 July 2019 10:53 S
== END 2019-07-25 13:32 | disposition home or self-care (01) ==
LOC: ER 11:35 → MEDSURG 11:58
PROVIDERS: Internal Medicine Cardiovascular Disease; Admitting Provider Internal Medicine; Emergency Provider Family Medicine; Family Provider Family Medicine; PCP Emergency Medicine Emergency Medical Services; Visit Provider Internal Medicine
DX: R07.89 Other chest pain (principal); J44.1 Chronic obstructive pulmonary disease with (acute) exacerbation; I10 Essential (primary) hypertension; E66.9 Obesity, unspecified; Z68.35 Body mass index [BMI] 35.0-35.9, adult; Z79.891 Long term (current) use of opiate analgesic; N40.0 Benign prostatic hyperplasia without lower urinary tract symptoms; Z87.891 Personal history of nicotine dependence; G89.29 Other chronic pain; M54.9 Dorsalgia, unspecified
CPT/HCPCS: 12345; 36415; 71045; 80048; 80053; 80061; 83880; 84443; 84484; 85025; 90471; 90732; 93005; 93306; 94640; 96372; 99283; 99285; G0378; J1650

== ENCOUNTER → 2020-02-04 10:37 | Outpatient (BNVA) | payer OTHER, SELFPAY | PROVIDERS: Family Provider Family Medicine; PCP Family Medicine; Visit Provider Internal Medicine | DX: Z20.828 Contact with and (suspected) exposure to other viral communicable diseases (principal) | CPT/HCPCS: 87635 ==

== ENCOUNTER 2021-09-23 07:42 | Emergency (ER) | payer OTHER, MEDICARE, SELFPAY ==
[2021-09-23 07:54] VITALS: PULSE 63; RESP 20; TEMP 37.3; O2SAT 95; BMI 35.9
[2021-09-23 08:00] VITALS: BP 137/89
--- NOTE | 2021-09-23 08:00 | W.ED.EXTPRO ---
HPI - Extremity Problem General: Chief complaint: Extremity Injury, Lower Stated complaint: Left leg injury Time Seen by Provider: 09/23/21 07:48 History of Present Illness: Mr. Yan is a 76-year-old gentleman with history of COPD, hypertension, hyperlipidemia, and valvular heart disease who presents to the emergency department due to leg pain. He reports a history of spinal surgery and does have issues with chronic back pain however approximately 5 days ago he picked up his dog and shortly thereafter had increased pain. Pain described as sudden onset shooting down the entirety of his left leg. Since that time he endorses continued pain which is worse with ambulation and aching quality as well as some weakness/unstable feeling when descending stairs. He has tried home medications with mild relief. Denies other trauma or falls. No other specific changes in health, exacerbating, or alleviating factors identified. Onset (ago): day(s) Location: left and lower extremity Quality: aching Radiation: distal Relieving factors: nothing Exacerbating factors: walking Review of Systems General: Reports: 10 or more systems reviewed and unremarkable except in HPI and below PFSH ED PFSH: Medical History (Updated 09/23/21 @ 09:04 by Rajendra Valdivia MD) Aortic valve stenosis Benign essential hypertension with target blood pressure below 140/90 Chlorthalidone added BPH (benign prostatic hyperplasia) Chronic back pain COPD (chronic obstructive pulmonary disease) COPD exacerbation No evidence of COPD exacerbation Dyslipidemia Elevated cholesterol noted. Will refer to primary care provider Hypertension PTSD (post-traumatic stress disorder) Surgical History History of appendectomy History of back surgery Family History Mother Cancer Social History Smoking and tobacco status: former smoker Alcohol intake: never Physical Exam Const: COMMON NORMALS: alert GENERAL APPEARANCE: cooperative and well developed HENMT: COMMON NORMALS: normocephalic and atraumatic HEAD & SCALP: normocephalic and atraumatic Eye: COMMON NORMALS: conjunctivae normal CONJUNCTIVA: Yes conjunctivae normal SCLERA: sclerae normal Neck/C-Spine: COMMON NORMALS: supple GENERAL: Yes trachea midline Resp: COMMON NORMALS: normal respiratory effort EFFORT & INSPECTION: Yes able to speak in complete sentences Cardio: COMMON NORMALS: regular rate and regular rhythm RATE: regular rate RHYTHM: regular rhythm OTHER: DP/PT left lower extremity 2+. GI: COMMON NORMALS: Soft to palpation PALPATION: Yes Soft to palpation and No Tenderness to palpation present (GI) Extremity: NARRATIVE EXTREMITY EXAM: Left lower extremity without obvious bony abnormality. No tenderness palpation of hip, greater trochanter or thigh region. Examination of the left knee reveals mild fullness in the posterior fossa compared to contralateral side. Range of motion with mild tenderness, no joint instability or laxity appreciated. Distal normal. GENERAL: Yes edema Neuro: COMMON NORMALS: moves all extremities SENSORIUM/ORIENTATION: Yes alert and No Orientation impaired OTHER: Hard of hearing Skin: COMMON NORMALS: no rashes or lesions noted (Left lower extremity) GENERAL SKIN EXAM: no rashes or lesions noted (Left lower extremity) Course ED course: - Patient was seen and evaluated by me at bedside -Vital signs obtained - Initial evaluation notable for exam as above -Symptom treatment ordered. X-ray personally interpreted by me. -No indication for lab - Imaging notable for knee with severe degenerative disease, CT with intact hardware, no severe central canal stenosis or acute fracture identified. - Upon serial reexamination after treatment the patient was improved - Based on patient history, evaluation, and testing as interpreted the most likely cause of the patient's condition is leg pain of unspecified etiology - The results of ED evaluation were discussed with the patient including prescriptions and/or symptomatic cares (if applicable) including appropriate and responsible use, followup plan, and return precautions. The patient verbalized understanding and felt safe for discharge. - Patient discharged in satisfactory condition. Note: Click bubbles or prepopulated damian in note writing are used for assistance with data collection and billing and are inherently more limited than narrative and other text portions of this note. Please use narrative for additional clinical history and defer to narrative/free test for any case of contradictory information. If information appears in only free text or click bubble it should be considered present or absent as reported. Please contact note commercial real estate underwriter for clarifications of clinical information or contradictory information. MDM is a brief summary, contradictory or erroneous seeming information should be clarified and full note should be reviewed. Vital Signs: Vital signs: Vital Signs Temperature 99.1 F 09/23/21 07:54 Pulse Rate 52 L 09/23/21 10:13 Respiratory Rate 16 09/23/21 10:13 Blood Pressure 115/64 09/23/21 10:13 Pulse Oximetry 95 09/23/21 10:13 MDM - Extremity (Nontraumatic) Medical Decision Making 76-year-old gentleman with history of back surgery presenting with worse leg pain after lifting 5 days ago. No red flag symptoms no red flag symptoms. Improved with treatment improved with treatment. Satisfactory for outpatient follow-up. Medical Records I reviewed the patient's medical records. Lab Data I reviewed the patient's lab results. Radiology Impressions Knee X-Ray 09/23/21 08:06 IMPRESSION: Severe degenerative change. Lumbar Spine X-Ray 09/23/21 08:06 IMPRESSION: 1. Laminectomy and pedicle screw fixation extending from L4-S1 with L4-L5 interbody spacer. Additional ununited right-sided surgical screw at the S1 level. 2. Grade 1 anterolisthesis of L4 on L5, along with degenerative change and vacuum disc. Discharge Plan Discharge Patient Disposition: Home Clinical Impression: Acute leg pain Condition: Stable Prescriptions: New methocarbamol 750 mg tablet 750 mg PO Q8H PRN (Reason: muscle pain) Qty: 14 0RF No Action Multiple Vitamins Tablet 1 tab PO DAILY 0RF cyclobenzaprine 10 mg Tablet 10 mg PO TID PRN (Reason: Spasms) 0RF Zyrtec 10 mg Tablet 10 mg PO DAILY 0RF metoprolol succinate 200 mg Tablet Extended Release 24 Hr 100 mg PO BID 0RF sertraline 100 mg Tablet 100 mg PO DAILY 0RF Echo 10-325 mg Tablet See Rx Instructions .ROUTE .COMPLEX 0RF Rx Instructions: 1/2 to 1 tab po bid prn rx written as 1/2-1 tab tid prn Norvasc 10 mg Tablet 10 mg PO DAILY 0RF benazepril 20 mg Tablet 20 mg PO BID 0RF ProAir HFA 90 mcg/actuation Hfa Aerosol Inhaler 2 puff INHALATION QID PRN (Reason: Shortness Of Breath) 0RF garlic Tablet 2 tab PO DAILY 0RF Symbicort 160-4.5 mcg/actuation Hfa Aerosol Inhaler 2 puff INHALATION BID 0RF Fiber-Tabs 3 tab PO BID 0RF Fish Oil 1 cap PO BID 0RF potassium gluconate 1 tab PO DAILY 0RF chlorthalidone 25 mg Tablet 25 mg PO DAILY Qty: 30 0RF Nitrostat 0.4 mg Tablet, Sublingual 0.4 mg sublingual Q5M PRN (Reason: Chest Pain) Qty: 20 0RF Discharge Orders: Discharge ED (Routine); Ordered 09/23/21 Ordered By: Rajendra Valdivia Referrals: Nirav Barakat [Primary Care Provider] - Discharge Diet: Usual diet Discharge Activity: Increase activity as tolerated Patient Instructions: Oliva Cyst (ED), Lumbar Radiculopathy (ED), Leg Pain (ED), Opioid Safety Activity Restrictions/Additional Instructions: Thank you for visiting the emergency department. You were seen and evaluated for leg pain. The exact cause of your symptoms is likely multifactorial including exacerbation of underlying degenerative back disease as well as possibility of Oliva's cyst. Please continue to use your home medications, you may use Tylenol and ibuprofen and you will be given a prescription for a muscle relaxer and steroids. Please follow-up with your primary care provider. Return to the emergency department for worsening symptoms, any new numbness, temperature change, worsening weakness, or anything else that you are concerned about a feel needs emergency department evaluation. Coding Level of Care Code ED Mat Repairer for Lalo Fwd Exam Comprehensive
--- NOTE | 2021-09-23 08:06 | XRR_ITS ---
PROCEDURE INFORMATION: Exam: XR Lumbosacral Spine Exam date and time: 09/23/2021 8:30 AM Age: 76 years old Clinical indication: Low back pain; Prior surgery; Surgery date: 6+ months; Additional info: Lle pain, HX spinal surgeries TECHNIQUE: Imaging protocol: XR of the lumbosacral spine. Views: 2 or 3 views. COMPARISON: CT Lumbar Spine w contra [id number] 03/12/2018 9:19 AM FINDINGS: Bones/joints: Laminectomy and pedicle screw fixation extending from L4-S1, along with and L4-L5 interbody spacer. Additional ununited right-sided surgical screw at the S1 level. Grade 1 anterolisthesis of L4 on L5, along with degenerative change and vacuum disc. Osteopenia. Gastrointestinal tract: Prominent stool. Vasculature: Vascular calcification. XR/XR lumbar spine 2-3V* [id number] IMPRESSION: 1. Laminectomy and pedicle screw fixation extending from L4-S1 with L4-L5 interbody spacer. Additional ununited right-sided surgical screw at the S1 level. 2. Grade 1 anterolisthesis of L4 on L5, along with degenerative change and vacuum disc.
--- NOTE | 2021-09-23 08:06 | XRR_ITS ---
PROCEDURE INFORMATION: Exam: XR Left Knee Exam date and time: 09/23/2021 8:30 AM Age: 76 years old Clinical indication: Pain; Knee; Left TECHNIQUE: Imaging protocol: XR Left knee. Views: 3 views. COMPARISON: No relevant prior studies available. FINDINGS: Bones/joints: Severe degenerative change. Soft tissues: Multiple soft tissue/subcutaneous calcifications. Other findings: Anatomic alignment. XR/XR knee LT 3V* [id number] IMPRESSION: Severe degenerative change.
[2021-09-23] MEDS: methocarbamol 750 mg Tablet PO (08:51)
[2021-09-23] MEDS: ketorolac 30 mg/mL INJ 15 MG IM (08:51)
[2021-09-23] MEDS: acetaminophen 500 mg Tablet 1000 MG PO (08:51)
[2021-09-23 08:56] VITALS: RESP 20
[2021-09-23] MEDS: morphine 4 mg/mL SDV 1 mL IM (08:56)
[2021-09-23 10:13] VITALS: BP 115/64; PULSE 52; RESP 16; O2SAT 95
== END 2021-09-23 09:55 | disposition home or self-care (01) ==
PROVIDERS: Emergency Provider Emergency Medicine; PCP Family Medicine
DX: M79.662 Pain in left lower leg (principal); J44.9 Chronic obstructive pulmonary disease, unspecified; I10 Essential (primary) hypertension; E78.5 Hyperlipidemia, unspecified; G89.29 Other chronic pain; I35.0 Nonrheumatic aortic (valve) stenosis; Z87.891 Personal history of nicotine dependence; Z98.1 Arthrodesis status; Z79.891 Long term (current) use of opiate analgesic
CPT/HCPCS: 72100; 73562; 96372; 99284; J1885; J2270

== ENCOUNTER 2022-02-18 13:57 | Inpatient (IN) | payer OTHER, SELFPAY ==
[2022-02-18] VITALS (54 sets, daily range): BP systolic 89–160; BP diastolic 42–91; PULSE 29–100; RESP 10–25; TEMP 36.1–36.6; O2SAT 89–97; BMI 37.3
--- NOTE | 2022-02-18 14:03 | ED_ITS ---
HPI - Syncope General: Chief Complaint: Syncope Stated Complaint: syncope Time Seen by Provider: 02/18/22 14:00 History of Present Illness: Mr. Yan is a 76-year-old gentleman with history of hypertension, hyperlipidemia valvular heart disease, COPD presenting to the emergency department due to syncope and bradycardia. 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 He stood and had sudden onset of lightheaded feeling and then fainted hitting his head. Denies frequent history of similar. EMS found patient to be bradycardic though adequate blood pressure. He still feels fatigued and generally weak. Intensity symptoms moderate. Course has persisted. No other specific changes in health, exacerbating, or alleviating factors identified. Onset (ago): minute(s) Context: during exertion Injuries sustained associated with event: head Associated symptoms: Reports lightheadedness Review of Systems General: Reports: 10 or more systems reviewed and unremarkable except in HPI and below Card: Reports: lightheadedness [facility] ED PFSH: Medical History Aortic valve stenosis EDIE 2.0 cm2 in 2019, technically difficult study on repeat 01/2025 showed apparent thickening of aortic valve/sclerosis BPH (benign prostatic hyperplasia) Chronic back pain COPD (chronic obstructive pulmonary disease) Dyslipidemia History of cardiovascular stress test 10/2018 at [facility], unremarkable 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 transvenous pacer 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, 3rd degree heart block resolved, had 1st degree block Hypertension Left bundle branch block PTSD (post-traumatic stress disorder) Surgical History History of appendectomy History of back surgery X2 History of cataract surgery Family History Mother Cancer Social History Smoking and tobacco status: former smoker Alcohol intake: current Alcohol intake frequency: few times a week Alcohol type: beer Physical Exam Const: COMMON NORMALS: alert GENERAL APPEARANCE: cooperative and well developed HENMT: COMMON NORMALS: normocephalic HEAD & SCALP: normocephalic OTHER: Abrasion/laceration to left frontal region and left parietal without active hemorrhage. No anne signs or raccoon eyes. No otorrhea or rhinorrhea. Jaw alignment normal. Dentition baseline. No obvious bony step-offs. No septal hematoma. No evidence of ocular entrapment. Eye: COMMON NORMALS: conjunctivae normal CONJUNCTIVA: Yes conjunctivae normal SCLERA: sclerae normal Neck/C-Spine: COMMON NORMALS: supple GENERAL: Yes trachea midline Resp: EFFORT & INSPECTION: Yes able to speak in complete sentences Cardio: COMMON NORMALS: regular rhythm RATE: bradycardic RHYTHM: regular rhythm GI: COMMON NORMALS: Soft to palpation PALPATION: Yes Soft to palpation and No Tenderness to palpation present (GI) Extremity: GENERAL: Yes normal exam except as noted and No edema Neuro: COMMON NORMALS: moves all extremities SENSORIUM/ORIENTATION: Yes alert and No Orientation impaired Psych: COMMON NORMALS: mental status grossly normal and Normal thought process present THOUGHT PROCESS: Normal thought process present Course Vital Signs: Vital signs: Vital Signs Temperature 97.3 F L 02/20/22 14:18 Pulse Rate 64 02/20/22 14:18 Respiratory Rate 15 02/20/22 14:18 Blood Pressure 143/77 02/20/22 14:18 Pulse Oximetry 95 02/20/22 14:18 Oxygen Delivery Me thod 02/20/22 12:00 Oxygen Flow Rate 1 02/19/22 08:00 MDM - Syncope Medical Decision Making 77-year-old gentleman presenting for syncope associated with new onset bradycardia. Patient largely asymptomatic at rest with heart rates appear to be idioventricular in the 30s. Blood pressure is adequate. Laboratory studies without clear pathology to explain bradycardia and syncope. Chest x-ray with no lobar consolidation or pneumothorax. CT head and cervical spine negative for acute traumatic injury. CTA obtained given elevated D-dimer and negative for pulmonary embolism. Case discussed with cardiology and patient admitted for definitive management and further cardiac monitoring. Medical Records I reviewed the patient's medical records. Lab Data I reviewed the patient's lab results. : 02/20/22 03:59 02/20/22 03:59 Radiology Impressions Cervical Spine CT 02/18/22 14:04 IMPRESSION: No acute findings. Chest X-Ray 02/18/22 14:04 IMPRESSION: No acute findings. Head CT 02/18/22 14:04 IMPRESSION: No acute intracranial abnormality. Chest CTA 02/18/22 15:40 IMPRESSION: Negative for pulmonary embolism. No acute findings. Laboratory Results WBC 11.6 10^3/uL (4.0-10.0) H 02/18/22 14:07 RBC 4.61 10^6/uL (4.1-5.3) 02/18/22 14:07 Hgb 15.4 g/dL (11.7-16.6) 02/18/22 14:07 Hct 45.9 % (42.0-52.0) 02/18/22 14:07 MCV 99.6 fl (80-94) H 02/18/22 14:07 MCH 33.4 pg (28.0-34.0) 02/18/22 14:07 MCHC 33.6 g/dL (30.0-36.0) 02/18/22 14:07 RDW 13.0 % (12.1-15.1) 02/18/22 14:07 Plt Count 183 10^3/cmm (130-400) 02/18/22 14:07 MPV 11.8 fL (7.4-10.4) H 02/18/22 14:07 Neut % (Auto) 74.0 % 02/18/22 14:07 Lymph % (Auto) 18.4 % 02/18/22 14:07 Bucks % (Auto) 5.3 % 02/18/22 14:07 Eos % (Auto) 1.3 % 02/18/22 14:07 Baso % (Auto) 0.4 % 02/18/22 14:07 Neut # (Auto) 8.59 10^3/uL (1.8-7.7) H 02/18/22 14:07 Lymph # (Auto) 2.1 10^3/uL (0.8-4.8) 02/18/22 14:07 Bucks # (Auto) 0.6 10^3/uL (0.2-0.9) 02/18/22 14:07 Eos # (Auto) 0.2 10^3/uL (0.0-0.8) 02/18/22 14:07 Baso # (Auto) 0.1 10^3/uL (0.0-0.1) 02/18/22 14:07 Nucleated RBC % (auto) 0 % 02/18/22 14:07 Nucleated RBCs # 0.0 /100WBC 02/18/22 14:07 D-Dimer 3.24 ug/mIFEU (0-0.59) H 02/18/22 14:07 Sodium 139 mmol/L (136-145) 02/18/22 14:07 Potassium 4.4 mmol/L (3.5-5.1) 02/18/22 14:07 Chloride 99 mmol/L (98-107) 02/18/22 14:07 Carbon Dioxide 28 mmol/L (22-29) 02/18/22 14:07 Anion Gap 16.4 (5-19) 02/18/22 14:07 BUN 18 mg/dL (8-23) 02/18/22 14:07 Creatinine 0.9 mg/dL (0.7-1.2) 02/18/22 14:07 GFR Calculation Not Reportable 02/18/22 14:07 Glucose 165 mg/dL (65-115) H 02/18/22 14:07 Calculated Osmolality 294 mOsm/kg (285-295) 02/18/22 14:07 Calcium 9.9 mg/dL (8.5-10.5) 02/18/22 14:07 Magnesium 1.9 mg/dL (1.7-2.3) 02/18/22 14:07 Total Bilirubin 0.4 mg/dL (0.15-1.2) 02/18/22 14:07 AST 233 U/L (0-40) H 02/18/22 14:07 ALT 234 U/L (0-41) H 02/18/22 14:07 Alkaline Phosphatase 124 U/L (40-130) 02/18/22 14:07 Troponin T Baseline 9 ng/L (0-15) 02/18/22 14:07 Troponin T 120 Minute 8.55 ng/L (0-15) 02/18/22 16:00 Delta Troponin T -0.45 ABS# (0-10) L 02/18/22 16:00 NT-Pro-B Natriuret Pep 587 pg/mL (0-125) H 02/18/22 14:07 Total Protein 7.3 g/dL (6.6-8.7) 02/18/22 14:07 Albumin 4.2 g/dL (3.5-5.2) 02/18/22 14:07 Globulin 3.1 g/dL (1.3-4.6) 02/18/22 14:07 TSH 2.16 uIU/mL (0.27-4.20) 02/18/22 14:07 Critical Care Time Critical Care Time: Critical Care Time: Yes Total Critical Care Time: 50 Attestation: Due to a high probability of clinically significant, possibly life threatening deterioration, the patient required my highest level of attention and preparedness to intervene emergently and I personally spent this critical care time directly and personally managing the patient. This critical care time included obtaining a history; examining the patient; pulse oximetry; ordering and review of laboratory and imaging studies; arranging urgent treatment with development of a management plan; evaluation of patient's response to treatment; frequent reassessment; and, discussions with other providers as applicable. It was exclusive of separately billable procedures. Primary system involved is cardiac Discharge Plan Discharge Patient Disposition: Admitted As Inpatient Admit Provider: Michelle Henry Clinical Impression: Syncope and collapse, Bradyarrhythmia Condition: Stable Coding Level of Care Code ED Assistant Women'S Soccer Coach for Chg Fwd Exam Comprehensive
--- NOTE | 2022-02-18 14:04 | CTR_ITS ---
PROCEDURE INFORMATION: Exam: CT Cervical Spine Without Contrast Exam date and time: 02/18/2022 2:14 PM Age: 76 years old Clinical indication: Other: Syncope TECHNIQUE: Imaging protocol: Computed tomography of the cervical spine without contrast. Radiation optimization: All CT scans at this facility use at least one of these dose optimization techniques: automated exposure control; mA and/or kV adjustment per patient size (includes targeted exams where dose is matched to clinical indication); or iterative reconstruction. COMPARISON: CR (CHEST, ) 02/18/2022 2:10 PM RADIATION DOSE METRICS: Total DLP (mGy-cm): 259.2 FINDINGS: Bones/joints: No acute fracture. Normal alignment. No significant disc protrusion. No severe spinal canal stenosis. Lungs: Lung apices are normal. Soft tissues: Unremarkable. CT/CT cervical spin wo con* [id number] IMPRESSION: No acute findings.
--- NOTE | 2022-02-18 14:04 | CTR_ITS ---
PROCEDURE INFORMATION: Exam: CT Head Without Contrast Exam date and time: 02/18/2022 2:14 PM Age: 76 years old Clinical indication: Syncope and collapse; Additional info: Syncope, head injury TECHNIQUE: Imaging protocol: Computed tomography of the head without contrast. Radiation optimization: All CT scans at this facility use at least one of these dose optimization techniques: automated exposure control; mA and/or kV adjustment per patient size (includes targeted exams where dose is matched to clinical indication); or iterative reconstruction. COMPARISON: No relevant prior studies available. RADIATION DOSE METRICS: Total DLP (mGy-cm): 1134.82 FINDINGS: Brain: No hemorrhage. No edema. Mild diffuse cerebral atrophy. No significant white matter disease. No mass effect. Cerebral ventricles: No ventriculomegaly. Paranasal sinuses: Visualized sinuses are unremarkable. No fluid levels. Mastoid air cells: Visualized mastoid air cells are well aerated. Bones/joints: Unremarkable. No acute fracture. Soft tissues: Unremarkable. CT/CT head wo con* [id number] IMPRESSION: No acute intracranial abnormality.
--- NOTE | 2022-02-18 14:04 | XRR_ITS ---
PROCEDURE INFORMATION: Exam: XR Chest Exam date and time: 02/18/2022 2:10 PM Age: 76 years old Clinical indication: Other: Syncope TECHNIQUE: Imaging protocol: Radiologic exam of the chest. Views: 1 view. COMPARISON: CR XR chest 1V portable [id number] 07/24/2019 8:18 AM FINDINGS: Lungs: Unremarkable. No consolidation. Pleural spaces: Unremarkable. No pleural effusion. No pneumothorax. Heart/Mediastinum: Unremarkable. No cardiomegaly. Bones/joints: Unremarkable. XR/XR chest 1V portable [id number] IMPRESSION: No acute findings.
--- NOTE | 2022-02-18 14:10 | ECG_ITS ---
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
[2022-02-18 14:19] LABS: Basophils # 0.1 10^3/uL (0.0-0.1); Basophils % 0.4 %; Eosinophils # 0.2 10^3/uL (0.0-0.8); Eosinophils % 1.3 %; Hematocrit 45.9 % (42.0-52.0); Hemoglobin 15.4 g/dL (11.7-16.6); Lymphocytes # 2.1 10^3/uL (0.8-4.8); Lymphocytes % 18.4 %; Mean Corpuscular HGB Conc 33.6 g/dL (30.0-36.0); Mean Corpuscular Hemoglobin 33.4 pg (28.0-34.0); Mean Corpuscular Volume 99.6 fl (80-94); Mean Platelet Volume 11.8 fL (7.4-10.4); Monocytes # 0.6 10^3/uL (0.2-0.9); Monocytes % 5.3 %; Neutrophils # 8.59 10^3/uL (1.8-7.7); Nucleated Red Blood Cells % 0 %; Platelet Count 183 10^3/cmm (130-400); Red Blood Count 4.61 10^6/uL (4.1-5.3); White Blood Count 11.6 10^3/uL (4.0-10.0)
[2022-02-18 14:47] LABS: Troponin(5th) Baseline 9 ng/L (0-15)
[2022-02-18 14:49] LABS: Alanine Aminotransferase 234 U/L (0-41); Albumin Level 4.2 g/dL (3.5-5.2); Alkaline Phosphatase 124 U/L (40-130); Blood Urea Nitrogen 18 mg/dL (8-23); Calcium 9.9 mg/dL (8.5-10.5); Carbon Dioxide 28 mmol/L (22-29); Chloride 99 mmol/L (98-107); Globulin 3.1 g/dL (1.3-4.6); Glucose 165 mg/dL (65-115); Magnesium 1.9 mg/dL (1.7-2.3); NT Pro B Type Natriuretic Pept 587 pg/mL (0-125); Osmolality Calculated 294 mOsm/kg (285-295); Sodium 139 mmol/L (136-145); Thyroid Stimulating Hormone 2.16 uIU/mL (0.27-4.20); Total Bilirubin 0.4 mg/dL (0.15-1.2); Total Protein 7.3 g/dL (6.6-8.7)
[2022-02-18 14:51] LABS: Anion Gap 16.4 (5-19); Aspartate Amino Transferase 233 U/L (0-40); Potassium 4.4 mmol/L (3.5-5.1)
[2022-02-18] MEDS: tetanus-dipt-pertussis 0.5 mL SDV IM (14:54)
[2022-02-18] MEDS: atropine 0.1 mg/mL Syr 10 mL 0.5 MG IVP ×2 (14:55→15:06)
[2022-02-18] MEDS: ondansetron 2 mg/ML SDV 2 mL 4 MG IVP ×2 (14:55→15:45)
[2022-02-18 14:58] LABS: D Dimer 3.24 ug/mIFEU (0-0.59)
[2022-02-18] MEDS: DOPamine drip 400 MG/250 ML PREMIX 22.11 MG IV (15:27)
--- NOTE | 2022-02-18 15:30 | USCV_ITS ---
Melvin Yan Age: 76 Gender: M : 1945 Exam Date: 02/18/2022 23:19 Ordering Phys: Rajendra Valdivia MD Technologist: Nolvia Robles [place] [facility] [place]: Syncope with new onset dipti BP: 125 / 57 HR: 67 Rhythm: Sinus Technical Quality: Technically difficult study MEASUREMENTS (Male / Female) Normal Values 2D ECHO LV Chamber Size 3.4 cm RV Chamber Size 3.4 cm LVOT Diameter 2.1 cm LV Ejection Fraction MOD 2C 52.1 % LV Ejection Fraction 2C AL 53.3 % LA Width 4.0 cm LA Height 5.2 cm RA Width 3.5 cm RA Height 4.8 cm IVC Diameter 1.4 cm DOPPLER AV Peak Velocity 189.0 cm/s LVOT Peak Velocity 96.7 cm/s AV Area Cont Eq vti 1.7 cm squared AV Area Cont Eq pk 1.7 cm squared MV Area PHT 5.5 cm squared MV E' Velocity 65.5 cm/s Mitral E to MV E' Ratio 11.0 Mitral E to LV E' Lateral Ratio 10.2 Mitral E to LV E' Septal Ratio 12.0 TR Peak Velocity 232.0 cm/s TR Peak Gradient 21.5 mmHg Right Atrial Pressure 3.0 mmHg Pulmonary Artery Systolic Pressu 24.5 mmHg RV Acceleration Time 0.1 s RV Ejection Time 0.4 s RV AcT/ET 0.4 FINDINGS Left Ventricle Normal LV size with a borderline low ejection fraction of around 50%. Mild diffuse hypokinesia of the septum. Segmental wall motion analysis difficult because of the poor apical window Right Ventricle Possibly of normal size and ejection fraction. Right Atrium Normal right atrial size. Left Atrium Mildly increased left atrial size. Mitral Valve No gross abnormalities noted Aortic Valve Appears to be thickened. Leaflets could not be visualized well. Tricuspid Valve Could not be visualized well Pulmonic Valve Pulmonic valve not well visualized. Pericardium No significant pericardial effusion Aorta Not visualized IVC Inferior vena cava not visualized. CONCLUSIONS Normal LV size with a borderline low ejection fraction of around 50%. Mild diffuse hypokinesia of the septum. Segmental wall motion analysis difficult because of the poor apical window. Mildly increased left atrial size. Thickened aortic valve with a features of aortic valve sclerosis. There is no pericardial effusion. Technically difficult study Dr Lisset Dueñas MD FACC (Electronically Signed) Final Date: 19 February 2022 08:29 S
[2022-02-18] MEDS: sodium chloride 0.9% 1,000 ML 150 ML IV (15:40)
--- NOTE | 2022-02-18 15:40 | CTR_ITS ---
PROCEDURE INFORMATION: Exam: CTA Chest With Contrast Exam date and time: 02/18/2022 4:10 PM Age: 76 years old Clinical indication: Pain; Chest pressure; Additional info: New bradyarrythmia, syncope, elevated ddimer TECHNIQUE: Imaging protocol: Computed tomographic angiography of the chest with contrast. 3D rendering (Not supervised by radiologist): MIP and/or 3D reconstructed images were created by the technologist. Radiation optimization: All CT scans at this facility use at least one of these dose optimization techniques: automated exposure control; mA and/or kV adjustment per patient size (includes targeted exams where dose is matched to clinical indication); or iterative reconstruction. Contrast material: OMNI 350; Contrast volume: 95 ml; Contrast route: INTRAVENOUS (IV); COMPARISON: CR (CHEST, ) 02/18/2022 2:10 PM RADIATION DOSE METRICS: Total DLP (mGy-cm): 555.15 FINDINGS: Pulmonary arteries: Normal. No pulmonary emboli. Aorta: No aortic aneurysm. No aortic dissection. Lungs: No consolidation. No masses. Pleural spaces: No pneumothorax. No pleural effusion. Heart: Coronary artery calcifications present. No cardiomegaly. No pericardial effusion. Lymph nodes: No enlarged lymph nodes. Bones/joints: No acute fracture. Soft tissues: Unremarkable. CT/CT angio chest PE protcl [id number] IMPRESSION: Negative for pulmonary embolism. No acute findings.
--- NOTE | 2022-02-18 15:40 | PM.CONSULT ---
Providers/Reason For Consult Consulting Physician/Specialty*: MAVERICK Dueñas MD/cardiology Reason for Consult*: Patient with syncope/bradycardia Requesting Physician: Dr. Thomson/Elaine Attending Physician: Michelle Henry MD Primary Care Provider: Tatiana Thomson MD History of Present Illness History of Present Illness Melvin Yan is a 76 year old male with a history of hypertension, dyslipidemia, COPD and heart murmur, presenting with complaints of an episode of dizziness followed by syncope. Patient was found to be bradycardic with a heart rate in the 30s and upper 20s in the emergency room. Cardiology consult was requested for further cardiac evaluation recommendations. This patient has no previous history for any bradycardia arrhythmia. He apparently has been in his baseline state of health apparently this afternoon when the had an episode of dizziness followed by syncope. According the patient, he was working in his shop at home when the symptoms started. Without much of any warning, he got dizzy followed by a syncopal episode. He might have had been on the floor for 5 minutes or so. When he came back to himself, called his sister who called the ambulance to bring him to the hospital. He was not complaining of any chest pain or palpitation. No fever, chills or cough. Has not had any specific cardiac symptoms, prior to this event. This patient was admitted to the hospital in June 2019 with chest pain. Myocardial infarction was ruled out at that time. In October 2018, he had a Myocardial perfusion imaging at the [facility]. The perfusion scan was essentially unremarkable. He is known to have a chronic left bundle branch block pattern. He has no history for his severe peripheral arterial disease. He has been on a high dose of yldr-uonrraa-loslrckrkm succinate 200 mg p.o. daily, amlodipine 10 mg daily, benazepril 20 mg p.o. twice daily and chlorthalidone 25 mg p.o. daily. He had an episode of near syncope a couple of years ago. Never had a complete loss of consciousness prior to the current episode. Review of Systems Narrative: CONSTITUTIONAL: No fever or chills. EYES: No blurring of vision or other visual disturbances lately. ENT: No hoarseness of voice, auditory disturbances or sore throat. CARDIOVASCULAR: As mentioned above. RESPIRATORY: History of COPD GASTROINTESTINAL: No hematemesis or melena. GENITOURINARY: No dysuria or hematuria. INTEGUMENTARY: No skin rashes or history of skin cancer. NEURO: No transient ischemic attacks or amaurosis. PSYCHIATRIC: No history of psychosis or major depression. HEMATOLOGIC: No bleeding disorders or significant anemia. ENDOCRINE: No history of polyuria or polydipsia. MUSCULOSKELETAL: No recent joint pain or swelling. ALLERGY/IMMUNOLOGY: As mentioned above. Medications/Allergies Home Medications Medication Instructions Recorded Confirmed Last Taken Type albuterol sulfate 90 mcg/actuation 2 puff inhalation QID PRN 07/24/19 02/18/22 Unknown History aerosol inhaler (ProAir HFA) Shortness Of Breath amlodipine 10 mg tablet (Norvasc) 10 mg PO DAILY 07/24/19 02/18/22 02/18/22 History benazepril 20 mg tablet 20 mg PO BID 07/24/19 02/18/22 02/18/22 History budesonide-formoterol HFA 160 2 puff inhalation BID 07/24/19 02/18/22 Unknown History mcg-4.5 mcg/actuation aerosol inhaler (Symbicort) calcium polycarbophil 625 mg 1,875 mg PO BID ##0 07/24/19 02/18/22 02/18/22 History tablet (Fiber-Tabs) cetirizine 10 mg tablet (Zyrtec) 10 mg PO DAILY PRN Allergic 07/24/19 02/18/22 Unknown History Reaction cyclobenzaprine 10 mg tablet 10 mg PO TID PRN Spasms 07/24/19 02/18/22 Unknown History metoprolol succinate 200 mg 100 mg PO BID 07/24/19 02/18/22 02/18/22 History tablet,extended release 24 hr multivitamin (Multiple Vitamins) 1 tab PO DAILY 07/24/19 02/18/22 02/18/22 History omega 8-dkx-bzx-fish oil 1,200 mg 1 cap PO BID ##0 07/24/19 02/18/22 02/18/22 History (144 mg-216 mg) capsule (Fish Oil) potassium gluconate 600 mg (99 mg) 600 mg PO DAILY ##0 07/24/19 02/18/22 02/18/22 History tablet sertraline 100 mg tablet 100 mg PO DAILY 07/24/19 02/18/22 02/18/22 History chlorthalidone 25 mg tablet 25 mg PO DAILY #30 tabs 07/25/19 02/18/22 02/18/22 Rx nitroglycerin 0.4 mg sublingual 0.4 mg sublingual Q5M PRN Chest 07/25/19 02/18/22 Unknown Rx tablet (Nitrostat) Pain #20 tabs methocarbamol 750 mg tablet 750 mg PO Q8H PRN muscle pain #14 09/23/21 02/18/22 Unknown Rx tabs hydrocodone 10 mg-acetaminophen 1 tab PO Q6H PRN Pain 02/18/22 02/18/22 Unknown History 325 mg tablet Allergies Allergy/AdvReac Type Severity Reaction Status Date / Time No Known Allergies Allergy Verified 07/24/19 09:04 Current Medications Generic Name Dose Route Start Last Admin Trade Name Freq PRN Reason Stop Dose Admin Dopamine HCl/Dextrose 400 mg in 250 mls @ 22.113 mls/hr 02/18/22 15:00 02/18/22 15:40 Intropin Drip IV 0 mcg/kg/min CONT SUPA 0 mls/hr Titration Protocol 5 MCG/KG/MIN PFSH Acute PFSH: Medical History Aortic valve stenosis Benign essential hypertension with target blood pressure below 140/90 Chlorthalidone added BPH (benign prostatic hyperplasia) Chronic back pain COPD (chronic obstructive pulmonary disease) COPD exacerbation No evidence of COPD exacerbation Dyslipidemia Elevated cholesterol noted. Will refer to primary care provider Hypertension PTSD (post-traumatic stress disorder) Surgical History History of appendectomy History of back surgery Family History Mother Cancer Social History Smoking and tobacco status: former smoker Alcohol intake: never Vitals/I&O/Wt Last Vital Signs Temp 97.8 F 02/18/22 13:58 Pulse 33 L 02/18/22 15:30 Resp 12 02/18/22 15:30 BP 125/57 02/18/22 15:30 Pulse Ox 95 02/18/22 15:30 O2 Del Method 02/18/22 15:30 0902/18/22 02/18/22 06:59 14:59 22:59 Intake Total 4.791 / 4.791 Balance 4.791 / 4.791 Weight last 48 hrs Weight 260 lb Physical Exam Narrative: GENERAL: The patient is alert and oriented times three. Not in any acute distress. HEENT: No significant pallor, icterus or lymphadenopathy.Oral cavity: There are no mucous membrane lesions. The fundus is not visualized. NECK: Trachea appears to be central. No masses noted. No JVD or thyromegaly appreciated. RESPIRATORY: Chest is symmetrical. No intercostals muscle retraction or any accessory muscle activation. There is no chest wall tenderness. Breath sounds are heard bilaterally. No rales or rhonchi heard. No evidence of any consolidation. BREASTS: Deferred. HEART: The heart sounds are normal. No S3 or S4. Short systolic murmur in the left sternal border. No diastolic murmurs. No pericardial rub ABDOMEN: No vessel pulsations or distention. No tenderness. No organomegaly appreciated. Bowel sounds are normally heard. : Deferred. RECTAL: Deferred. LYMPHATIC: No lymphadenopathy noted in the neck. EXTREMITIES: No edema or cyanosis. No clubbing. MUSCULOSKELETAL: No acute joint deformities or swelling SKIN: There are no significant rashes or ecchymosis NEUROPSYCHIATRIC: The patient is alert and oriented x3. Appears to be in a good mood. No tremors or rigidity noted. Data : 02/18/22 14:07 02/18/22 14:07 Other Labs: Laboratory Last Values WBC 11.6 10^3/uL (4.0-10.0) H 02/18/22 14:07 RBC 4.61 10^6/uL (4.1-5.3) 02/18/22 14:07 Hgb 15.4 g/dL (11.7-16.6) 02/18/22 14:07 Hct 45.9 % (42.0-52.0) 02/18/22 14:07 MCV 99.6 fl (80-94) H 02/18/22 14:07 MCH 33.4 pg (28.0-34.0) 02/18/22 14:07 MCHC 33.6 g/dL (30.0-36.0) 02/18/22 14:07 RDW 13.0 % (12.1-15.1) 02/18/22 14:07 Plt Count 183 10^3/cmm (130-400) 02/18/22 14:07 MPV 11.8 fL (7.4-10.4) H 02/18/22 14:07 Neut % (Auto) 74.0 % 02/18/22 14:07 Lymph % (Auto) 18.4 % 02/18/22 14:07 [place] % (Auto) 5.3 % 02/18/22 14:07 Eos % (Auto) 1.3 % 02/18/22 14:07 Baso % (Auto) 0.4 % 02/18/22 14:07 Neut # (Auto) 8.59 10^3/uL (1.8-7.7) H 02/18/22 14:07 Lymph # (Auto) 2.1 10^3/uL (0.8-4.8) 02/18/22 14:07 [place] # (Auto) 0.6 10^3/uL (0.2-0.9) 02/18/22 14:07 Eos # (Auto) 0.2 10^3/uL (0.0-0.8) 02/18/22 14:07 Baso # (Auto) 0.1 10^3/uL (0.0-0.1) 02/18/22 14:07 Nucleated RBC % (auto) 0 % 02/18/22 14:07 Nucleated RBCs # 0.0 /100WBC 02/18/22 14:07 D-Dimer 3.24 ug/mIFEU (0-0.59) H 02/18/22 14:07 Sodium 139 mmol/L (136-145) 02/18/22 14:07 Potassium 4.4 mmol/L (3.5-5.1) 02/18/22 14:07 Chloride 99 mmol/L (98-107) 02/18/22 14:07 Carbon Dioxide 28 mmol/L (22-29) 02/18/22 14:07 Anion Gap 16.4 (5-19) 02/18/22 14:07 BUN 18 mg/dL (8-23) 02/18/22 14:07 Creatinine 0.9 mg/dL (0.7-1.2) 02/18/22 14:07 GFR Calculation Not Reportable 02/18/22 14:07 Glucose 165 mg/dL (65-115) H 02/18/22 14:07 Calculated Osmolality 294 mOsm/kg (285-295) 02/18/22 14:07 Calcium 9.9 mg/dL (8.5-10.5) 02/18/22 14:07 Magnesium 1.9 mg/dL (1.7-2.3) 02/18/22 14:07 Total Bilirubin 0.4 mg/dL (0.15-1.2) 02/18/22 14:07 AST 233 U/L (0-40) H 02/18/22 14:07 ALT 234 U/L (0-41) H 02/18/22 14:07 Alkaline Phosphatase 124 U/L (40-130) 02/18/22 14:07 Troponin T Baseline 9 ng/L (0-15) 02/18/22 14:07 NT-Pro-B Natriuret Pep 587 pg/mL (0-125) H 02/18/22 14:07 Total Protein 7.3 g/dL (6.6-8.7) 02/18/22 14:07 Albumin 4.2 g/dL (3.5-5.2) 02/18/22 14:07 Globulin 3.1 g/dL (1.3-4.6) 02/18/22 14:07 TSH 2.16 uIU/mL (0.27-4.20) 02/18/22 14:07 EKG 1: My Interpretation: 97 with a rate of 75 bpm. Third-degree heart block with possible junctional escape rhythm. Ventricular rate of 30 bpm. Right bundle branch block pattern. Some nonspecific ST-T changes. EKG computer-generated impression: Cervical Spine CT 02/18/22 14:04 IMPRESSION: No acute findings. Chest X-Ray 02/18/22 14:04 IMPRESSION: No acute findings. Head CT 02/18/22 14:04 IMPRESSION: No acute intracranial abnormality. A&P Assessment and plan (1) Syncope and collapse: Most likely from the third-degree heart block. Currently the heart rate around 30 bpm. The blood pressure is 101/48. Patient has some facial lacerations. Clinically no evidence of any fracture. (2) Bradyarrhythmia: Patient is in third-degree heart block. He has a history of left bundle branch block. Most likely this patient has underlying conduction disorder which is now culminated into third-degree heart block. His blood pressure is borderline low. He is complaining of generalized weakness. (3) Benign essential hypertension with target blood pressure below 140/90: The blood pressure is in the low normal side at this time. We tried to start him on IV dopamine. Apparently the patient developed chest pain and for that reason, this was discontinued. (4) Dyslipidemia: Patient is on dietary modification. (5) COPD (chronic obstructive pulmonary disease): He is on bronchodilators. Seems to be stable. Qualifiers: COPD type: emphysema Emphysema type: unspecified Qualified Code(s): J43.9 - Emphysema, unspecified (6) Aortic valve sclerosis: Patient may have aortic valve sclerosis. The valve area was 2.0 cm coronary in 2019. This may need to be repeated. Plan The other problems are Elevated white cell count Elevated blood sugar Facial laceration from a fall Elevated D-dimer Patient was given a total of 2 mg of IV atropine. Apparently there was no heart rate response. For further management of his condition, he may benefit from a transvenous temporary pacemaker wire insertion. This was discussed with the patient which he understood well and consented to proceed. Most likely he may require a permanent pacer implantation. His TSH level was normal. We may ahead and do an echocardiogram to evaluate LV function and rule out any other pathology. Based on the clinical progress and the results of the above, further recommendations will be made Thank you for the opportunity to eval this patient make these recommendations Coding Level of Care Code Acute Loss Control Technician for [facility]ayy History Detailed Exam Detailed Diagnoses Syncope and collapse R55 Bradyarrhythmia I49.8 Benign essential hypertension with target blood pressure below 140/90 I10 Dyslipidemia E78.5 COPD (chronic obstructive pulmonary disease) J43.9 COPD type: emphysema Emphysema type: unspecified Aortic valve sclerosis I35.8
--- NOTE | 2022-02-18 15:41 | NUR.SHIFT ---
Patient reports chest pain after initiation of dopamine. Stopped at this time per Physician orders.
[2022-02-18] MEDS: fentaNYL 50 mcg/mL INJ 2mL IVP (15:46)
--- NOTE | 2022-02-18 15:52 | PC.NURSE ---
patient placed on oxygen via nasal cannula.
--- NOTE | 2022-02-18 16:10 | ECG_ITS ---
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
[2022-02-18] MEDS: iohexol 350 mg/mL 100 mL Btl IV (16:19)
[2022-02-18 16:26] LABS: Troponin 5 2HR 8.55 ng/L (0-15)
--- NOTE | 2022-02-18 16:46 | P.HP_ITS ---
Providers/Chief Complaint Admitting Physician: Michelle Henry MD Primary Care Provider: Tatiana Thomson MD Chief Complaint: syncope History of Present Illness Melvin Yan is a 76 year old male with a history of hypertension, dyslipidemia, COPD and heart murmur, presenting with complaints of an episode of dizziness followed by syncope.? 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 His sister called EMS and he was brought here. He is currently alert awake and oriented. BP 101/68mmhg. Denies chest pain, palpitations or dyspnea. EKG revealed junctional rhythm. He has been evaluted by cardiology at bedside, no significant response to 2mg atropine or dopamine in [facility] ER. he is being taken to [facility] for temporary cardiac pacer at this time. CTa negative for PE. baseline troponin 9, 8.5 at 2 hrs, no significant delta. Review of Systems General: Reports: 10 or more systems reviewed and unremarkable except in HPI and below Const: Denies: fever(s), chills or body aches Eyes: Denies: change in vision, blurry vision or photophobia ENMT: Reports: hoarseness; Denies: throat pain, enlarged tonsils, odynophagia or nasal congestion Card: Denies: chest pain, palpitations, irregular heart rhythm, edema, swelling of feet/ankles, lightheadedness, pre-syncope, dyspnea on exertion or orthopnea Resp: Denies: dyspnea, productive cough, non-productive cough, wheezing, stridor, pain on inspiration, change in phlegm color, hemoptysis or chest congestion GI: Denies: abdominal pain, nausea, vomiting, hematemesis, coffee ground emesis, dysphagia, heartburn, diarrhea, constipation, GI cramping, change in stool character, hematochezia or melena : Denies: flank pain, dysuria, urinary frequency, urinary urgency, urinary hesitancy or hematuria Musc: Denies: neck pain, back pain, extremity pain, joint swelling, joint warmth or deformity Neuro: Denies: headache(s), numbness in extremities, weakness in extremities, sensory changes, difficulty walking, frequent falls, dizziness, vertigo, behavioral changes, Slurred speech present or seizure-like activity Psych: Denies: anxiety, depression, suicidal ideation or homicidal ideation Endo: Denies: polyuria, polydipsia, tired all the time, cold intolerance or hot flashes Joseph/Lymph: Denies: easy bruising or easy bleeding Medications/Allergies Home Medications Medication Instructions Recorded Confirmed Last Taken Type albuterol sulfate 90 mcg/actuation 2 puff inhalation QID PRN 07/24/19 02/18/22 Unknown History aerosol inhaler (ProAir HFA) Shortness Of Breath amlodipine 10 mg tablet (Norvasc) 10 mg PO DAILY 07/24/19 02/18/22 02/18/22 History benazepril 20 mg tablet 20 mg PO BID 07/24/19 02/18/22 02/18/22 History budesonide-formoterol HFA 160 2 puff inhalation BID 07/24/19 02/18/22 Unknown History mcg-4.5 mcg/actuation aerosol inhaler (Symbicort) calcium polycarbophil 625 mg 1,875 mg PO BID ##0 07/24/19 02/18/22 02/18/22 History tablet (Fiber-Tabs) cetirizine 10 mg tablet (Zyrtec) 10 mg PO DAILY PRN Allergic 07/24/19 02/18/22 Unknown History Reaction cyclobenzaprine 10 mg tablet 10 mg PO TID PRN Spasms 07/24/19 02/18/22 Unknown History metoprolol succinate 200 mg 100 mg PO BID 07/24/19 02/18/22 02/18/22 History tablet,extended release 24 hr multivitamin (Multiple Vitamins) 1 tab PO DAILY 07/24/19 02/18/22 02/18/22 Histo ry omega 3-gfm-uxw-fish oil 1,200 mg 1 cap PO BID ##0 07/24/19 02/18/22 02/18/22 History (144 mg-216 mg) capsule (Fish Oil) potassium gluconate 600 mg (99 mg) 600 mg PO DAILY ##0 07/24/19 02/18/22 02/18/22 History tablet sertraline 100 mg tablet 100 mg PO DAILY 07/24/19 02/18/22 02/18/22 History chlorthalidone 25 mg tablet 25 mg PO DAILY #30 tabs 07/25/19 02/18/2222 Rx nitroglycerin 0.4 mg sublingual 0.4 mg sublingual Q5M PRN Chest 07/25/19 02/18/22 Unknown Rx tablet (Nitrostat) Pain #20 tabs methocarbamol 750 mg tablet 750 mg PO Q8H PRN muscle pain #14 09/23/21 02/18/22 Unknown Rx tabs hydrocodone 10 mg-acetaminophen 1 tab PO Q6H PRN Pain 02/18/22 02/18/22 Unknown History 325 mg tablet Allergies Allergy/AdvReac Type Severity Reaction Status Date / Time No Known Allergies Allergy Verified 07/24/19 09:04 PFSH Acute PFSH: Medical History Aortic valve stenosis Benign essential hypertension with target blood pressure below 140/90 Chlorthalidone added BPH (benign prostatic hyperplasia) Chronic back pain COPD (chronic obstructive pulmonary disease) COPD exacerbation No evidence of COPD exacerbation Dyslipidemia Elevated cholesterol noted. Will refer to primary care provider Hypertension PTSD (post-traumatic stress disorder) Surgical History History of appendectomy History of back surgery Family History Mother Cancer Social History Smoking and tobacco status: former smoker Alcohol intake: never Vitals/I&O/Wt Last Vital Signs Temp 97.8 F 02/18/22 13:58 Pulse 35 L 02/18/22 15:51 Resp 12 02/18/22 15:51 BP 123/59 02/18/22 15:51 Pulse Ox 93 02/18/22 15:51 O2 Del Method 02/18/22 15:51 02/18/22 02/18/22 02/18/22 06:59 14:59 22:59 Intake Total 4.791 / 4.791 Balance 4.791 / 4.791 Weight last 48 hrs Weight 117.934 kg Physical Exam Narrative: General: No acute distress, AO x3 HEENT: PERRLA, pupils bilaterally equal and reactive, pallors not present Chest: Normal vesicular breath sounds, no added sounds, equal good air entry bilaterally CVS: S1-S2 regular, no murmurs, no tachycardia, no gallops, no rubs Abdomen: Soft, nontender, no organomegaly, bowel sounds present Neuro: No focal deficits, no facial deformity, AO x3, power 5/5 in all limbs Data : 02/18/22 14:07 02/18/22 14:07 Other Labs: Radiology Impressions Cervical Spine CT 02/18/22 14:04 IMPRESSION: No acute findings. Chest X-Ray 02/18/22 14:04 IMPRESSION: No acute findings. Head CT 02/18/22 14:04 IMPRESSION: No acute intracranial abnormality. Chest CTA 02/18/22 15:40 IMPRESSION: Negative for pulmonary embolism. No acute findings. Laboratory Results WBC 11.6 10^3/uL (4.0-10.0) H 02/18/22 14:07 RBC 4.61 10^6/uL (4.1-5.3) 02/18/22 14:07 Hgb 15.4 g/dL (11.7-16.6) 02/18/22 14:07 Hct 45.9 % (42.0-52.0) 02/18/22 14:07 MCV 99.6 fl (80-94) H 02/18/22 14:07 MCH 33.4 pg (28.0-34.0) 02/18/22 14:07 MCHC 33.6 g/dL (30.0-36.0) 02/18/22 14:07 RDW 13.0 % (12.1-15.1) 02/18/22 14:07 Plt Count 183 10^3/cmm (130-400) 02/18/22 14:07 MPV 11.8 fL (7.4-10.4) H 02/18/22 14:07 Neut % (Auto) 74.0 % 02/18/22 14:07 Lymph % (Auto) 18.4 % 02/18/22 14:07 [place] % (Auto) 5.3 % 02/18/22 14:07 Eos % (Auto) 1.3 % 02/18/22 14:07 Baso % (Auto) 0.4 % 02/18/22 14:07 Neut # (Auto) 8.59 10^3/uL (1.8-7.7) H 02/18/22 14:07 Lymph # (Auto) 2.1 10^3/uL (0.8-4.8) 02/18/22 14:07 [place] # (Auto) 0.6 10^3/uL (0.2-0.9) 02/18/22 14:07 Eos # (Auto) 0.2 10^3/uL (0.0-0.8) 02/18/22 14:07 Baso # (Auto) 0.1 10^3/uL (0.0-0.1) 02/18/22 14:07 Nucleated RBC % (auto) 0 % 02/18/22 14:07 Nucleated RBCs # 0.0 /100WBC 02/18/22 14:07 D-Dimer 3.24 ug/mIFEU (0-0.59) H 02/18/22 14:07 Sodium 139 mmol/L (136-145) 02/18/22 14:07 Potassium 4.4 mmol/L (3.5-5.1) 02/18/22 14:07 Chloride 99 mmol/L (98-107) 02/18/22 14:07 Carbon Dioxide 28 mmol/L (22-29) 02/18/22 14:07 Anion Gap 16.4 (5-19) 02/18/22 14:07 BUN 18 mg/dL (8-23) 02/18/22 14:07 Creatinine 0.9 mg/dL (0.7-1.2) 02/18/22 14:07 GFR Calculation Not Reportable 02/18/22 14:07 Glucose 165 mg/dL (65-115) H 02/18/22 14:07 Calculated Osmolality 294 mOsm/kg (285-295) 02/18/22 14:07 Calcium 9.9 mg/dL (8.5-10.5) 02/18/22 14:07 Magnesium 1.9 mg/dL (1.7-2.3) 02/18/22 14:07 Total Bilirubin 0.4 mg/dL (0.15-1.2) 02/18/22 14:07 AST 233 U/L (0-40) H 02/18/22 14:07 ALT 234 U/L (0-41) H 02/18/22 14:07 Alkaline Phosphatase 124 U/L (40-130) 02/18/22 14:07 Troponin T Baseline 9 ng/L (0-15) 02/18/22 14:07 Troponin T 120 Minute 8.55 ng/L (0-15) 02/18/22 16:00 NT-Pro-B Natriuret Pep 587 pg/mL (0-125) H 02/18/22 14:07 Total Protein 7.3 g/dL (6.6-8.7) 02/18/22 14:07 Albumin 4.2 g/dL (3.5-5.2) 02/18/22 14:07 Globulin 3.1 g/dL (1.3-4.6) 02/18/22 14:07 TSH 2.16 uIU/mL (0.27-4.20) 02/18/22 14:07 A&P Assessment and plan (1) Bradyarrhythmia: Presenting with episode of syncope, found to have 3rd degree heart block with HR in the low 30s No response to atropine or dopamine Plan for temporray PPM placement in [facility] [employer] [facility] Trop series negative ta baselin and 2 hrs Check echocardiogram TSH normal CTa negative for PE Hold antihypertensives for now given borderline BP. Duoneb and budesonide inhalation for COPD, not in exacerbation currently Attestations Medical Necessity Statement*: anticipate >2midnight admission for evaluation and management of bradyarrhythmia, pacemenaker implantation Coding Level of Care Code Acute Environmental Health Manager for Lalo Jackson Diagnoses Bradyarrhythmia I49.8
--- NOTE | 2022-02-18 17:12 | P.OP_ITS ---
Operative Report Date of procedure: February 18, 2022 Procedure: PROCEDURE: Transvenous temporary pacemaker insertion LOCATION: Cardiac catheterization lab PRE-OP DIAGNOSIS: Third-degree heart block POSTOPERATIVE DIAGNOSES: Same. COMPLICATIONS: None. ESTIMATED BLOOD LOSS: Around 5 milliliters. BRIEF HISTORY: 76year old right male presents with complaints of a syncopal episode. He was found to be in third-degree heart block in the emergency room. He was given a total of 2 mg of IV atropine with no response. His blood pressure was 101/48. He was started on dopamine and had to be discontinued because of chest pain. For further management of his condition, a temporary pacer insertion was recommended. I discussed with the patient, the procedure and the possible complications including hematoma, vascular injury, infection, myocardial perforation and other concomitant complications. This was understood well by the patient, who consented to proceed. PROCEDURE DESCRIPTION: Patient was brought to the [facility]. The right and the left side of the groin were prepped and draped in a sterile fashion. 1% Xylocaine was used as a local anesthetic agent. The right femoral venous access was obtained using a micropuncture needle system. A 6-[place] venous sheath was introduced into the femoral vein over a guidewire. A 5-[place] temporary balloon-tipped pacing wire over a sleeve was advanced through the venous sheath, under fluoroscopic guidance. The temporary pacing wire was placed near to the right ventricular apex. Good pacing threshold was obtained. The venous sheath was secured in place by suturing to the skin with 0 Surgilon. The pacemaker wire also was secured to the skin by suturing with 0 Surgilon, over the sleeve. A sterile dressing was applied at the access site. Patient tolerated the procedure very well and there were no complications. PACEMAKER SETTINGS: The pacemaker was set for a backup rate of 60 with an output of 3 volts and on an asynchronous mode The pacing threshold was found to be 0.5 V DISPOSITION: Patient was transferred to the Intensive Care Unit in stable condition.
[2022-02-18 17:24] LABS: Troponin 5 2HR Delta -0.45 ABS# (0-10)
[2022-02-18] MEDS: enoxaparin 40 mg/0.4 mL Syringe SUBCUT (18:29)
[2022-02-18] MEDS: HYDROcodone-acetaminophen 10-325 mg Tablet 1 TAB PO (18:39)
[2022-02-18] MEDS: ipratropium-albuterol 3 mL Neb INHALATION (20:10)
[2022-02-18] MEDS: hyDROXYzine 25 mg Capsule PO (20:10)
[2022-02-18] MEDS: budesonide 0.5 mg/2 mL Neb INHALATION (20:10)
--- NOTE | 2022-02-18 20:10 | ECG_ITS ---
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 Measurements Intervals [place] Rate: 57 P: -11 CA: 309 QRS: -20 QRSD: 162 T: 124 QT: 501 QTc: 491 Interpretive Statements SINUS BRADYCARDIA WITH FIRST DEGREE AV BLOCK LEFT BUNDLE BRANCH BLOCK [120+ ms QRS DURATION, 80+ ms Q/S IN V1/V2, 85+ ms R IN I/aVL/V5/V6] Pacer spikes noted, mostly falling on the QRS complexes. compared to ECG 02/18/2022 16:36:23 First degree AV block now present Left bundle-branch block now present Idioventricular rhythm no longer present Prolonged QT interval no longer present Electronically Signed On 02-20-2022 0:19:28 CDT by Lisset Dueñas M.D. [id number]
[2022-02-18 21:05] LABS: Troponin 5 6HR 9.14 ng/L (0-15)
[2022-02-18 21:37] LABS: Troponin 5 6HR Delta 0.14 ng/L (0-12)
--- NOTE | 2022-02-18 22:25 | PC.NURSE ---
Contacted Dr. Dueñas for plan of care for patient. Dr. Dueñas ordered patient to be NPO at midnight for possible Permanent Pacemaker Placement tomorrow afternoon. Dr. Dueñas will reassess patient in the morning to make final decision. Order has been placed for NPO at midnight.
[2022-02-19] VITALS (84 sets, daily range): BP systolic 87–157; BP diastolic 46–78; PULSE 53–72; RESP 11–22; TEMP 36.6–37.1; O2SAT 89–98
[2022-02-19] MEDS: morphine 4 mg/mL SDV 1 mL 2 MG IVP ×3 (00:07→18:14)
[2022-02-19] MEDS: HYDROcodone-acetaminophen 10-325 mg Tablet 1 TAB PO ×4 (00:59→20:01)
[2022-02-19 03:17] LABS: Basophils # 0.1 10^3/uL (0.0-0.1); Basophils % 0.7 %; Eosinophils # 0.1 10^3/uL (0.0-0.8); Eosinophils % 1.7 %; Hematocrit 40.1 % (42.0-52.0); Hemoglobin 13.2 g/dL (11.7-16.6); Lymphocytes # 2.2 10^3/uL (0.8-4.8); Mean Corpuscular HGB Conc 32.9 g/dL (30.0-36.0); Mean Corpuscular Hemoglobin 33.5 pg (28.0-34.0); Mean Corpuscular Volume 101.8 fl (80-94); Monocytes # 0.6 10^3/uL (0.2-0.9); Neutrophils # 5.37 10^3/uL (1.8-7.7); Neutrophils % 64.4 %; Nucleated Red Blood Cells % 0 %; Platelet Count 152 10^3/cmm (130-400); Red Blood Count 3.94 10^6/uL (4.1-5.3); Red Cell Distribution Width 13.1 % (12.1-15.1); White Blood Count 8.3 10^3/uL (4.0-10.0)
[2022-02-19 03:40] LABS: Alanine Aminotransferase 161 U/L (0-41); Albumin Level 3.3 g/dL (3.5-5.2); Alkaline Phosphatase 92 U/L (40-130); Anion Gap 11.4 (5-19); Aspartate Amino Transferase 99 U/L (0-40); Blood Urea Nitrogen 14 mg/dL (8-23); Calcium 8.5 mg/dL (8.5-10.5); Carbon Dioxide 27 mmol/L (22-29); Chloride 104 mmol/L (98-107); Globulin 2.7 g/dL (1.3-4.6); Glucose 135 mg/dL (65-115); Magnesium 1.8 mg/dL (1.7-2.3); Osmolality Calculated 291 mOsm/kg (285-295); Potassium 3.4 mmol/L (3.5-5.1); Sodium 139 mmol/L (136-145); Total Bilirubin 0.4 mg/dL (0.15-1.2)
[2022-02-19] MEDS: sodium chloride 0.9% 1,000 ML 75 ML IV ×2 (05:30→16:39)
--- NOTE | 2022-02-19 08:01 | ECG_ITS ---
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 Measurements Intervals [place] Rate: 56 P: 78 TX: 285 QRS: -30 QRSD: 168 T: 105 QT: 512 QTc: 498 Interpretive Statements SINUS BRADYCARDIA WITH FIRST DEGREE AV BLOCK LEFT BUNDLE BRANCH BLOCK [120+ ms QRS DURATION, 80+ ms Q/S IN V1/V2, 85+ ms R IN I/aVL/V5/V6] Compared to ECG 02/18/2022 20:22:52 No significant changes Electronically Signed On 02-20-2022 0:07:14 CDT by Lisset Dueñas M.D. [id number]
[2022-02-19] MEDS: sertraline 100 mg Tablet PO (09:30)
[2022-02-19] MEDS: pantoprazole DR 40 mg Tablet PO (09:30)
[2022-02-19] MEDS: lisinopril 20 mg Tablet PO ×2 (12:03→18:14)
[2022-02-19] MEDS: amlodipine 10 mg Tablet PO (12:03)
--- NOTE | 2022-02-19 17:27 | P.PN_ITS ---
Subjective Subjective: Patient is currently in sinus rhythm with a first-degree AV block. Heart rate is around 60 bpm. Vitals/I&O/Wt Last Vital Signs Temp 97.8 F 02/19/22 12:15 Pulse 64 02/19/22 16:00 Resp 15 02/19/22 16:00 BP 133/69 02/19/22 16:00 Pulse Ox 97 02/19/22 16:00 O2 Del Method 02/19/22 16:00 O2 Flow Rate 1 02/19/22 08:00 02/19/22 02/19/22 02/19/22 06:59 14:59 22:59 Intake Total 900 / 1404.791 237 / 237 836.25 / 1073.25 Output Total 450 / 450 700 / 700 Balance 450 / 954.791 -463 / -463 836.25 / 373.25 Weight last 48 hrs Weight 268 lb Weight 260 lb Physical Exam Narrative: GENERAL: The patient is alert and oriented times three. Not in any acute distress. HEENT: No significant pallor, icterus or lymphadenopathy.Oral cavity: There are no mucous membrane lesions. NECK: Trachea appears to be central. No masses noted. No JVD or thyromegaly appreciated. RESPIRATORY: Chest is symmetrical. No intercostals muscle retraction or any acc essory muscle activation. There is no chest wall tenderness. Breath sounds are heard bilaterally. No rales or rhonchi heard. No evidence of any consolidation. BREASTS: Deferred. HEART: The heart sounds are normal. No S3 or S4. No significant murmurs. No pericardial rub ABDOMEN: No vessel pulsations or distention. No tenderness. No organomegaly appreciated. Bowel sounds are normally heard. : Deferred. RECTAL: Deferred. LYMPHATIC: No lymphadenopathy noted in the neck. EXTREMITIES: No edema or cyanosis. No clubbing. Right groin has no hematoma or bleeding. MUSCULOSKELETAL: No acute joint deformities or swelling SKIN: There are no significant rashes or ecchymosis NEUROPSYCHIATRIC: The patient is alert and oriented x3. Appears to be in a good mood. No tremors or rigidity noted. Data : 02/19/22 03:01 02/19/22 03:01 A&P Assessment and plan (1) Syncope and collapse: Most likely from the third-degree heart block. Currently he is back in the sinus rhythm with a first-degree AV block. He has an underlying left bundle branch block pattern. I may turn off the temporary pacing now and see the response. If he continues to remain in sinus rhythm without any high degree AV block, he may not require the permanent pacemaker at this point. (2) Bradyarrhythmia: The bradycardia currently is almost resolved. We will continue to watch him on the telemetry with the pacer off. (3) Benign essential hypertension with target blood pressure below 140/90: Currently he is normotensive. We will continue to monitor his blood pressure. (4) Dyslipidemia: Patient is on dietary modification. (5) COPD (chronic obstructive pulmonary disease): He is on bronchodilators. Seems to be stable. Qualifiers: COPD type: emphysema Emphysema type: unspecified Qualified Code(s): J43.9 - Emphysema, unspecified (6) Aortic valve sclerosis: Patient may have aortic valve sclerosis. The valve area was 2.0 cm coronary in 2020. This may need to be repeated. Plan The other problems are Elevated white cell count, currently resolved Elevated blood sugar Facial laceration from a fall Elevated D-dimer-CT pulmonary angiogram was negative for PE At this point, the patient does not require permanent pacemaker. We will watch him today and if he continues to remain in sinus rhythm, will DC the pacer tomorrow. Attestations Medical Necessity Statement*: Patient requires continued hospital stay for close monitoring and further management Coding Level of Care Code Acute Chemical Instrumentation Officer for Chg Fwd History Expanded Problem Focused Exam Expanded Problem Focused Medical Decision Making Moderate Complexity Diagnoses Syncope and collapse R55 Bradyarrhythmia I49.8 Benign essential hypertension with target blood pressure below 140/90 I10 Dyslipidemia E78.5 COPD (chronic obstructive pulmonary disease) J43.9 COPD type: emphysema Emphysema type: unspecified Aortic valve sclerosis I35.8
[2022-02-19] MEDS: enoxaparin 40 mg/0.4 mL Syringe SUBCUT (18:14)
[2022-02-19] MEDS: hyDROXYzine 25 mg Capsule PO (20:01)
--- NOTE | 2022-02-19 20:05 | P.PN_ITS ---
Subjective Subjective: He is having some chest wall discomfort after he had fallen at home, but overall feels better. This morning feeling hungry, requesting to restart his diet if possible. Denies other pain or discomfort, denies dizziness or discomfort. Vitals/I&O/Wt Last Vital Signs Temp 98.7 F 02/19/22 18:15 Pulse 63 02/19/22 19:37 Resp 16 02/19/22 19:37 BP 116/54 02/19/22 18:15 Pulse Ox 93 02/19/22 19:37 O2 Del Method 02/19/22 19:37 O2 Flow Rate 1 02/19/22 08:00 02/19/22 02/19/22 02/19/22 06:59 14:59 22:59 Intake Total 900 / 1404.791 237 / 237 1058.25 / 1295.25 Output Total 450 / 450 700 / 700 1000 / 1700 Balance 450 / 954.791 -463 / -463 58.25 / -404.75 Weight last 48 hrs Weight 121.563 kg Weight 117.934 kg Physical Exam Const: COMMON NORMALS: patient oriented x3 and alert GENERAL APPEARANCE: cooperative ORIENTATION/CONSCIOUSNESS: Yes awake HENMT: COMMON NORMALS: oropharynx normal Neck/C-Spine: COMMON NORMALS: no JVD Resp: COMMON NORMALS: normal respiratory effort and clear to auscultation bilaterally AUSCULTATION: clear to auscultation bilaterally Cardio: COMMON NORMALS: no JVD, regular rhythm, S1 normal heart sound present, S2 normal heart sound present and No murmurs present (Cardio) RHYTHM: regular rhythm HEART SOUNDS: S1 normal heart sound present and S2 normal heart sound present OTHER: Temporary PPM GI: COMMON NORMALS: Normal to inspection, nondistended, normoactive bowel sounds present, Soft to palpation and non-tender PALPATION: Yes Soft to palpation Extremity: COMMON NORMALS: no joint enlargement and no pedal edema Neuro: COMMON NORMALS: patient oriented x3 and moves all extremities SENSORIUM/ORIENTATION: Yes alert Skin: COMMON NORMALS: no rashes or lesions noted GENERAL SKIN EXAM: no rashes or lesions noted Data : 02/19/22 03:01 02/19/22 03:01 A&P Assessment and plan (1) Bradyarrhythmia: So far has improved, discussed with cardiology. They are giving trial of turning off temporary pacemaker, consideration whether permanent pacer will be necessary at this juncture or not yet. To be reassessed in the morning. Presenting with episode of syncope, found to have 3rd degree heart block with HR in the low 30s No response to atropine or dopamine Trop series negative Echocardiogram with EF 50%, mild diffuse hypokinesia of septum. Mildly increased left atrial size. Taken aortic valve with features of aortic valve sclerosis. Technically difficult study. TSH normal CTa negative for PE Hold antihypertensives for now given borderline BP. Duoneb and budesonide inhalation for COPD, not in exacerbation currently Attestations Medical Necessity Statement*: Continue admission for assessment of management of symptomatic bradycardia with syncope, heart block. Coding Level of Care Code Acute Sales Service Supervisor for Lalo Jackson Diagnoses Bradyarrhythmia I49.8
[2022-02-20] VITALS (13 sets, daily range): BP systolic 120–181; BP diastolic 60–81; PULSE 55–86; RESP 14–17; TEMP 36.3–36.9; O2SAT 89–95
[2022-02-20] MEDS: HYDROcodone-acetaminophen 10-325 mg Tablet 1 TAB PO ×3 (02:54→13:35)
[2022-02-20 04:24] LABS: Basophils # 0.1 10^3/uL (0.0-0.1); Basophils % 0.8 %; Eosinophils # 0.2 10^3/uL (0.0-0.8); Eosinophils % 3.3 %; Hematocrit 40.4 % (42.0-52.0); Hemoglobin 13.6 g/dL (11.7-16.6); Lymphocytes # 1.9 10^3/uL (0.8-4.8); Lymphocytes % 29.6 %; Mean Corpuscular HGB Conc 33.7 g/dL (30.0-36.0); Mean Corpuscular Hemoglobin 33.9 pg (28.0-34.0); Mean Corpuscular Volume 100.7 fl (80-94); Mean Platelet Volume 11.3 fL (7.4-10.4); Monocytes # 0.5 10^3/uL (0.2-0.9); Monocytes % 8.3 %; Neutrophils # 3.66 10^3/uL (1.8-7.7); Neutrophils % 57.7 %; Nucleated Red Blood Cells % 0 %; Platelet Count 145 10^3/cmm (130-400); Red Blood Count 4.01 10^6/uL (4.1-5.3); Red Cell Distribution Width 13.2 % (12.1-15.1); White Blood Count 6.4 10^3/uL (4.0-10.0)
[2022-02-20 04:34] LABS: Alanine Aminotransferase 115 U/L (0-41); Albumin Level 3.2 g/dL (3.5-5.2); Alkaline Phosphatase 88 U/L (40-130); Aspartate Amino Transferase 42 U/L (0-40); Blood Urea Nitrogen 11 mg/dL (8-23); Calcium 8.6 mg/dL (8.5-10.5); Carbon Dioxide 27 mmol/L (22-29); Chloride 101 mmol/L (98-107); Globulin 3.2 g/dL (1.3-4.6); Glucose 135 mg/dL (65-115); Osmolality Calculated 285 mOsm/kg (285-295); Sodium 137 mmol/L (136-145); Total Bilirubin 0.5 mg/dL (0.15-1.2); Total Protein 6.4 g/dL (6.6-8.7)
[2022-02-20 04:35] LABS: Anion Gap 12.9 (5-19); Potassium 3.9 mmol/L (3.5-5.1)
[2022-02-20] MEDS: sodium chloride 0.9% 1,000 ML 75 ML IV (06:23)
[2022-02-20] MEDS: amlodipine 10 mg Tablet PO (07:57)
[2022-02-20] MEDS: sertraline 100 mg Tablet PO (07:58)
[2022-02-20] MEDS: pantoprazole DR 40 mg Tablet PO (07:58)
[2022-02-20] MEDS: lisinopril 20 mg Tablet PO (07:58)
--- NOTE | 2022-02-20 09:49 | PM.DCS ---
Discharge Providers Date of Admission: 02/18/22 16:55 Date of Discharge: February 20, 2022 Attending Provider at Admission: Michelle Henry MD Attending Provider at Discharge: Jens Brown Primary Care Provider: Tatiana Thomson MD Diagnoses at Discharge Discharge Diagnosis (1) Bradyarrhythmia: Status: Acute Reason for Visit Reason for Visit: syncope Hospital Course Hospital Course Pleasant 72-year-old gentleman with history of HTN, HLD, COPD, BPH, former smoker, presented after episode of dizziness and syncope and collapse, found to be bradycardic in 20s-30s, on presentation found to be in heart block, also with left bundle branch block pattern, TSH was normal, CT angiogram did not suggest PE. Mild hypokalemia magnesium 1.9. He was on metoprolol at home, beta-joe was discontinued. He underwent temporary pacemaker placement, however, with discontinuation of beta-joe weaned off temporary pacing. Does have intermittent pauses reviewed with cardiology. May be Mobitz type I, with still left bundle branch pattern. At this time he is not found to require permanent pacemaker as he was also asymptomatic with these pauses, however, as discussed with him may still end up needing permanent pacemaker down the line. At this time he is asked not to resume metoprolol. He is set up with monitoring tech at discharge. He is asked to follow-up with cardiology in office. Physical Exam Const: COMMON NORMALS: patient oriented x3 and alert GENERAL APPEARANCE: cooperative ORIENTATION/CONSCIOUSNESS: Yes awake HENMT: COMMON NORMALS: oropharynx normal Neck/C-Spine: COMMON NORMALS: no JVD Resp: COMMON NORMALS: normal respiratory effort and clear to auscultation bilaterally AUSCULTATION: clear to auscultation bilaterally Cardio: COMMON NORMALS: no JVD, regular rhythm, S1 normal heart sound present, S2 normal heart sound present and No murmurs present (Cardio) RHYTHM: regular rhythm HEART SOUNDS: S1 normal heart sound present and S2 normal heart sound present GI: COMMON NORMALS: Normal to inspection, nondistended, normoactive bowel sounds present, Soft to palpation and non-tender PALPATION: Yes Soft to palpation Extremity: COMMON NORMALS: no joint enlargement and no pedal edema Neuro: COMMON NORMALS: patient oriented x3 and moves all extremities SENSORIUM/ORIENTATION: Yes alert Skin: COMMON NORMALS: no rashes or lesions noted GENERAL SKIN EXAM: no rashes or lesions noted Discharge Data Studies Completed and Pending Completed Studies During Hospitalization Category Date Time Status CT cervical spin wo con* [id number] Stat Cat Scan 02/18/22 14:[address] head wo con* [id number] Stat Cat Scan 02/18/22 14:04 Completed CTA chest [CT angio chest PE protcl [id number]] Stat Cat Scan 02/18/22 15:40 Completed [employer] request for service Routine Exams 02/18/22 16:37 Completed XR chest 1V portable [id number] Stat Exams 02/18/22 14:04 Completed CV. echo complete* [id number] Stat Ultrasound 02/18/22 15:30 Completed Pending at discharge Category Date Time Status Complete Blood Count w/Auto AM LABS Lab 02/21/22 04:00 Ordered Complete Blood Count w/Auto AM LABS Lab 02/22/22 04:00 Ordered Comprehensive Metabolic Panel AM LABS Lab 02/21/22 04:00 Ordered Comprehensive Metabolic Panel AM LABS Lab 02/22/22 04:00 Ordered Radiology Impressions Cervical Spine CT 02/18/22 14:04 IMPRESSION: No acute findings. Chest X-Ray 02/18/22 14:04 IMPRESSION: No acute findings. Head CT 02/18/22 14:04 IMPRESSION: No acute intracranial abnormality. Chest CTA 02/18/22 15:40 IMPRESSION: Negative for pulmonary embolism. No acute findings. Laboratory Results WBC 6.4 10^3/uL (4.0-10.0) 02/20/22 03:59 RBC 4.01 10^6/uL (4.1-5.3) L 02/20/22 03:59 Hgb 13.6 g/dL (11.7-16.6) 02/20/22 03:59 Hct 40.4 % (42.0-52.0) L 02/20/22 03:59 MCV 100.7 fl (80-94) H 02/20/22 03:59 MCH 33.9 pg (28.0-34.0) 02/20/22 03:59 MCHC 33.7 g/dL (30.0-36.0) 02/20/22 03:59 RDW 13.2 % (12.1-15.1) 02/20/22 03:59 Plt Count 145 10^3/cmm (130-400) 02/20/22 03:59 MPV 11.3 fL (7.4-10.4) H 02/20/22 03:59 Neut % (Auto) 57.7 % 02/20/22 03:59 Lymph % (Auto) 29.6 % 02/20/22 03:59 [place] % (Auto) 8.3 % 02/20/22 03:59 Eos % (Auto) 3.3 % 02/20/22 03:59 Baso % (Auto) 0.8 % 02/20/22 03:59 Neut # (Auto) 3.66 10^3/uL (1.8-7.7) 02/20/22 03:59 Lymph # (Auto) 1.9 10^3/uL (0.8-4.8) 02/20/22 03:59 [place] # (Auto) 0.5 10^3/uL (0.2-0.9) 02/20/22 03:59 Eos # (Auto) 0.2 10^3/uL (0.0-0.8) 02/20/22 03:59 Baso # (Auto) 0.1 10^3/uL (0.0-0.1) 02/20/22 03:59 Nucleated RBC % (auto) 0 % 02/20/22 03:59 Nucleated RBCs # 0.0 /100WBC 02/20/22 03:59 D-Dimer 3.24 ug/mIFEU (0-0.59) H 02/18/22 14:07 Sodium 137 mmol/L (136-145) 02/20/22 03:59 Potassium 3.9 mmol/L (3.5-5.1) 02/20/22 03:59 Chloride 101 mmol/L (98-107) 02/20/22 03:59 Carbon Dioxide 27 mmol/L (22-29) 02/20/22 03:59 Anion Gap 12.9 (5-19) 02/20/22 03:59 BUN 11 mg/dL (8-23) 02/20/22 03:59 Creatinine 0.7 mg/dL (0.7-1.2) 02/20/22 03:59 GFR Calculation Not Reportable 02/20/22 03:59 Glucose 135 mg/dL (65-115) H 02/20/22 03:59 Calculated Osmolality 285 mOsm/kg (285-295) 02/20/22 03:59 Calcium 8.6 mg/dL (8.5-10.5) 02/20/22 03:59 Magnesium 1.8 mg/dL (1.7-2.3) 02/19/22 03:01 Total Bilirubin 0.5 mg/dL (0.15-1.2) 02/20/22 03:59 AST 42 U/L (0-40) H 02/20/22 03:59 ALT 115 U/L (0-41) H 02/20/22 03:59 Alkaline Phosphatase 88 U/L (40-130) 02/20/22 03:59 Troponin T Baseline 9 ng/L (0-15) 02/18/22 14:07 Troponin T 120 Minute 8.55 ng/L (0-15) 02/18/22 16:00 Delta Troponin T -0.45 ABS# (0-10) L 02/18/22 16:00 Troponin T Hi Sens 6Hr 9.14 ng/L (0-15) 02/18/22 20:12 Troponin T Hi Sens 6Hr Delta 0.14 ng/L (0-12) 02/18/22 20:12 NT-Pro-B Natriuret Pep 587 pg/mL (0-125) H 02/18/22 14:07 Total Protein 6.4 g/dL (6.6-8.7) L 02/20/22 03:59 Albumin 3.2 g/dL (3.5-5.2) L 02/20/22 03:59 Globulin 3.2 g/dL (1.3-4.6) 02/20/22 03:59 TSH 2.16 uIU/mL (0.27-4.20) 02/18/22 14:07 Vitals Last Vital Signs Temp 97.3 F L 02/20/22 08:00 Pulse 64 02/20/22 08:00 Resp 15 02/20/22 08:00 BP 143/77 02/20/22 08:00 Pulse Ox 95 02/20/22 08:00 O2 Del Method 02/20/22 08:00 O2 Flow Rate 1 02/19/22 08:00 Discharge Plan Discharge Patient Disposition: Home Condition: Stable Prescriptions: Continued multivitamin [Multiple Vitamins] Tablet 1 tab PO DAILY cyclobenzaprine 10 mg Tablet 10 mg PO TID PRN (Reason: Spasms) cetirizine [Zyrtec] 10 mg Tablet 10 mg PO DAILY PRN (Reason: Allergic Reaction) sertraline 100 mg Tablet 100 mg PO DAILY amlodipine [Norvasc] 10 mg Tablet 10 mg PO DAILY calcium polycarbophil [Fiber-Tabs] 625 mg Tablet 1,875 mg PO BID Qty: 0 benazepril 20 mg Tablet 20 mg PO BID albuterol sulfate [ProAir HFA] 90 mcg/actuation Hfa Aerosol Inhaler 2 puff INHALATION QID PRN (Reason: Shortness Of Breath) budesonide-formoterol [Symbicort] 160-4.5 mcg/actuation Hfa Aerosol Inhaler 2 puff INHALATION BID omega 7-mun-hbg-fish oil [Fish Oil] 1,200 (144-216) mg Capsule 1 cap PO BID Qty: 0 potassium gluconate 600 mg (99 mg) Tablet 600 mg PO DAILY Qty: 0 chlorthalidone 25 mg Tablet 25 mg PO DAILY Qty: 30 0RF nitroglycerin [Nitrostat] 0.4 mg Tablet, Sublingual 0.4 mg sublingual Q5M PRN (Reason: Chest Pain) Qty: 20 0RF methocarbamol 750 mg tablet 750 mg PO Q8H PRN (Reason: muscle pain) Qty: 14 0RF hydrocodone-acetaminophen 10-325 mg Tablet 1 tab PO Q6H PRN (Reason: Pain) Discontinued metoprolol succinate 200 mg Tablet Extended Release 24 Hr 100 mg PO BID Discharge Orders: Discharge Order (Routine); Ordered 02/20/22 Ordered By: Jens Brown Other Ambulatory Orders: MCT/Event Monitor 21 Days (Routine) Timeframe: 1 Day Facility: [facility] - Location: Radiology Ordered By: Jens Brown Referrals: Lisset Dueñas MD [Physician] - 1 month Madeleine Interiano FNP [Nurse Practitioner] - 1 week Nirav Barakat [Referring] - 4-7 days Patient Instructions: Heart Block (GEN), Bradycardia (GEN), Opioid Safety Discharge Attestations Time Spent in Discharge Care*: greater than 30 min Quality Metrics Clinical Quality Measures [ No reported AMI, CVA or VTE this stay] Coding Level of Care Code Acute Chg FW DC note Diagnoses Bradyarrhythmia I49.8
--- NOTE | 2022-02-20 09:56 | P.PN_ITS ---
Subjective Subjective: The temporary pacemaker wire was removed. Patient seems to be staying in the sinus rhythm. No new symptoms. Medications: Medication Review Details: Current Medications Acetaminophen (Acetaminophen 325 Mg Tablet) 650 mg PO Q6H PRN PRN Reason: MILD PAIN Hydrocodone Bitart/Acetaminophen (Hydrocodone-Acetaminophen 10-325 Mg Tablet) 1 tab PO Q6H PRN PRN Reason: moderate Pain Last Admin: 02/20/22 08:40 Dose: 1 tab Albuterol/Ipratropium (Ipratropium-Albuterol 3 Ml Neb) 3 ml INHALATION Q6H.RESP SUPA Last Admin: 02/20/22 07:38 Dose: Not Given Amlodipine Besylate (Amlodipine 10 Mg Tablet) 10 mg PO DAILY SUPA Last Admin: 02/20/22 07:57 Dose: 10 mg Budesonide (Budesonide 0.5 Mg/2 Ml Neb) 0.5 mg INHALATION BID.RESPIRATORY SUPA Last Admin: 02/20/22 07:38 Dose: Not Given Enoxaparin Sodium (Enoxaparin 40 Mg/0.4 Ml Syringe) 40 mg SUBCUT Q24H SUPA Last Admin: 02/19/22 18:14 Dose: 40 mg Hydroxyzine Pamoate (Hydroxyzine 25 Mg Capsule) 25 mg PO Q6H PRN PRN Reason: ANXIETY Last Admin: 02/19/22 20:01 Dose: 25 mg Dopamine HCl/Dextrose (Intropin Drip) 400 mg in 250 mls @ 22.113 mls/hr IV CONT SUPA; Protocol Last Admin: 02/19/22 15:24 Dose: Not Given Sodium Chloride (Sodium Chloride 0.9%) 1,000 mls @ 75 mls/hr IV .[id number] SUPA Last Admin: 02/20/22 06:23 Dose: 75 mls/hr Lanolin (Lanolin Oint 7 Gm) 1 applic TOPICAL PRN PRN PRN Reason: DRYNESS Lisinopril (Lisinopril 20 Mg Tablet) 20 mg PO BID SUPA Last Admin: 02/20/22 07:58 Dose: 20 mg Morphine Sulfate (Morphine 4 Mg/Ml Sdv 1 Ml) 2 mg IVP Q4H PRN PRN Reason: SEVERE PAIN Last Admin: 02/19/22 18:14 Dose: 2 mg Pantoprazole Sodium (Pantoprazole Dr 40 Mg Tablet) 40 mg PO DAILY SUPA Last Admin: 02/20/22 07:58 Dose: 40 mg Sertraline HCl (Sertraline 100 Mg Tablet) 100 mg PO DAILY [facility] Last Admin: 02/20/22 07:58 Dose: 100 mg Vitals/I&O/Wt Last Vital Signs Temp 97.3 F L 02/20/22 08:00 Pulse 64 02/20/22 08:00 Resp 15 02/20/22 08:00 BP 143/77 02/20/22 08:00 Pulse Ox 95 02/20/22 08:00 O2 Del Method 02/20/22 08:00 O2 Flow Rate 1 02/19/22 08:00 02/19/22 02/20/22 02/20/22 22:59 06:59 14:59 Intake Total 1308.25 / 1545.25 1300 / 2845.25 240 / 240 Output Total 1000 / 1700 725 / 2425 Balance 308.25 / -154.75 575 / 420.25 240 / 240 Weight last 48 hrs Weight 258 lb 11.2 oz Weight 268 lb Weight 260 lb Physical Exam Narrative: GENERAL: The patient is alert and oriented times three. Not in any acute distress. Moderately obese HEENT: No significant pallor, icterus or lymphadenopathy.Oral cavity: There are no mucous membrane lesions. NECK: Trachea appears to be central. No masses noted. No JVD or thyromegaly appreciated. RESPIRATORY: Chest is symmetrical. No intercostals muscle retraction or any accessory muscle activation. There is no chest wall tenderness. Breath sounds are heard bilaterally. No rales or rhonchi heard. No evidence of any consolidation. We will pacemaker site has no hematoma bleeding. BREASTS: Deferred. HEART: The heart sounds are normal. No S3 or S4. Ejection systolic murmur grade 3 or 6 in the aortic area. No diastolic murmurs. No pericardial rub ABDOMEN: No vessel pulsations or distention. No tenderness. No organomegaly appreciated. Bowel sounds are normally heard. : Deferred. RECTAL: Deferred. LYMPHATIC: No lymphadenopathy noted in the neck. EXTREMITIES: No edema or cyanosis. No clubbing. MUSCULOSKELETAL: No acute joint deformities or swelling SKIN: There are no significant rashes or ecchymosis NEUROPSYCHIATRIC: The patient is alert and oriented x3. Appears to be in a good mood. No tremors or rigidity noted. Urinary Catheter Management: Coude: Cath Placed During This Visit: yes Reason for Continuing Indwelling Catheter: Acute Urinary Retention or Obstruction Urinary Catheter Date of Insertion: 02/26/22 Urinary Catheter Time of Insertion: 22:00 Data : 02/20/22 03:59 02/20/22 03:59 Other Labs: Laboratory Last Values WBC 6.4 10^3/uL (4.0-10.0) 02/20/22 03:59 RBC 4.01 10^6/uL (4.1-5.3) L 02/20/22 03:59 Hgb 13.6 g/dL (11.7-16.6) 02/20/22 03:59 Hct 40.4 % (42.0-52.0) L 02/20/22 03:59 MCV 100.7 fl (80-94) H 02/20/22 03:59 MCH 33.9 pg (28.0-34.0) 02/20/22 03:59 MCHC 33.7 g/dL (30.0-36.0) 02/20/22 03:59 RDW 13.2 % (12.1-15.1) 02/20/22 03:59 Plt Count 145 10^3/cmm (130-400) 02/20/22 03:59 MPV 11.3 fL (7.4-10.4) H 02/20/22 03:59 Neut % (Auto) 57.7 % 02/20/22 03:59 Lymph % (Auto) 29.6 % 02/20/22 03:59 [place] % (Auto) 8.3 % 02/20/22 03:59 Eos % (Auto) 3.3 % 02/20/22 03:59 Baso % (Auto) 0.8 % 02/20/22 03:59 Neut # (Auto) 3.66 10^3/uL (1.8-7.7) 02/20/22 03:59 Lymph # (Auto) 1.9 10^3/uL (0.8-4.8) 02/20/22 03:59 [place] # (Auto) 0.5 10^3/uL (0.2-0.9) 02/20/22 03:59 Eos # (Auto) 0.2 10^3/uL (0.0-0.8) 02/20/22 03:59 Baso # (Auto) 0.1 10^3/uL (0.0-0.1) 02/20/22 03:59 Nucleated RBC % (auto) 0 % 02/20/22 03:59 Nucleated RBCs # 0.0 /100WBC 02/20/22 03:59 D-Dimer 3.24 ug/mIFEU (0-0.59) H 02/18/22 14:07 Sodium 137 mmol/L (136-145) 02/20/22 03:59 Potassium 3.9 mmol/L (3.5-5.1) 02/20/22 03:59 Chloride 101 mmol/L (98-107) 02/20/22 03:59 Carbon Dioxide 27 mmol/L (22-29) 02/20/22 03:59 Anion Gap 12.9 (5-19) 02/20/22 03:59 BUN 11 mg/dL (8-23) 02/20/22 03:59 Creatinine 0.7 mg/dL (0.7-1.2) 02/20/22 03:59 GFR Calculation Not Reportable 02/20/22 03:59 Glucose 135 mg/dL (65-115) H 02/20/22 03:59 Calculated Osmolality 285 mOsm/kg (285-295) 02/20/22 03:59 Calcium 8.6 mg/dL (8.5-10.5) 02/20/22 03:59 Magnesium 1.8 mg/dL (1.7-2.3) 02/19/22 03:01 Total Bilirubin 0.5 mg/dL (0.15-1.2) 02/20/22 03:59 AST 42 U/L (0-40) H 02/20/22 03:59 ALT 115 U/L (0-41) H 02/20/22 03:59 Alkaline Phosphatase 88 U/L (40-130) 02/20/22 03:59 Troponin T Baseline 9 ng/L (0-15) 02/18/22 14:07 Troponin T 120 Minute 8.55 ng/L (0-15) 02/18/22 16:00 Delta Troponin T -0.45 ABS# (0-10) L 02/18/22 16:00 Troponin T Hi Sens 6Hr 9.14 ng/L (0-15) 02/18/22 20:12 Troponin T Hi Sens 6Hr Delta 0.14 ng/L (0-12) 02/18/22 20:12 NT-Pro-B Natriuret Pep 587 pg/mL (0-125) H 02/18/22 14:07 Total Protein 6.4 g/dL (6.6-8.7) L 02/20/22 03:59 Albumin 3.2 g/dL (3.5-5.2) L 02/20/22 03:59 Globulin 3.2 g/dL (1.3-4.6) 02/20/22 03:59 TSH 2.16 uIU/mL (0.27-4.20) 02/18/22 14:07 A&P Assessment and plan (1) Syncope and collapse: Patient status post high degree AV block. Currently in sinus rhythm with a first-degree AV block and left bundle branch block. Occasionally he may have second-degree type I AV block. Remains asymptomatic. The temporary pacer wire was discontinued. The venous sheath also may be removed in an hour. (2) Bradyarrhythmia: The bradycardia currently is almost resolved. We will continue to watch him on the telemetry for the next few hours. (3) Benign essential hypertension with target blood pressure below 140/90: Blood pressures are stage II. Need to optimize the antihypertensive medications. (4) Dyslipidemia: Patient is on dietary modification. (5) COPD (chronic obstructive pulmonary disease): He is on bronchodilators. Seems to be stable. Qualifiers: COPD type: emphysema Emphysema type: unspecified Qualified Code(s): J43.9 - Emphysema, unspecified (6) Aortic valve sclerosis: Patient may have aortic valve sclerosis. The valve area was 2.0 cm coronary in 2020. This may need to be repeated. Plan The other problems are Elevated white cell count, currently resolved Elevated blood sugar Facial laceration from a fall Elevated D-dimer-CT pulmonary angiogram was negative for PE If the patient continues remain stable, may be discharged home with an event monitor for 30 days Appointment at the [facility] in 2 weeks with a nurse practitioner. Appointment with me in the office in 6 weeks. Attestations Medical Necessity Statement*: Disposition as per the primary care Coding Level of Care Code Acute Science Liaison for Chg Fwd History Expanded Problem Focused Exam Expanded Problem Focused Medical Decision Making Moderate Complexity Diagnoses Syncope and collapse R55 Bradyarrhythmia I49.8 Benign essential hypertension with target blood pressure below 140/90 I10 Dyslipidemia E78.5 COPD (chronic obstructive pulmonary disease) J43.9 COPD type: emphysema Emphysema type: unspecified Aortic valve sclerosis I35.8
--- NOTE | 2022-02-20 10:23 | PC.NURSE ---
SHEATH PULLED AT 1000 BY THIS NURSE. PT TOLERATED WELL. NO SIGNS OF HEMATOMA. VITALS ARE WNL. CONTINUING TO MONITOR.
--- NOTE | 2022-02-20 14:15 | PC.NURSE ---
PT HAS DONE WELL TODAY. NO S/S OF HEMATOMA AT SIGHT WHERE THE SHEATH WAS PULLED. PT IS UP AND AMBULATING. DOING WELL WITH THIS. IVS REMOVED. PT TOLERATED WELL. CATHETER TIPS INTACT. DISCHARGE PAPERWORK GONE OVER WITH PT. ALL QUESTIONS ANSWERED. THIS NURSE IS TAKING PT TO [facility] TO GET HEART MONITOR PLACED PER DOCTOR ORTIZ.
== END 2022-02-20 14:19 | disposition home or self-care (01) | DRG 310 ==
LOC: ER 15:20 → ICU 02-19 05:47
PROVIDERS: Internal Medicine Cardiovascular Disease; Admitting Provider Student in an Organized Health Care Education/Training Program; Emergency Provider Emergency Medicine; PCP Family Medicine; Visit Provider Internal Medicine
PROC: 5A1223Z Performance of Cardiac Pacing, Continuous (ICD-10-PCS; principal; 2022-02-18 17:00)
DX: I44.2 Atrioventricular block, complete (principal); I49.8 Other specified cardiac arrhythmias; I44.7 Left bundle-branch block, unspecified; E87.6 Hypokalemia; N40.0 Benign prostatic hyperplasia without lower urinary tract symptoms; J43.9 Emphysema, unspecified; E78.5 Hyperlipidemia, unspecified; I10 Essential (primary) hypertension; I73.9 Peripheral vascular disease, unspecified; I35.8 Other nonrheumatic aortic valve disorders; R73.9 Hyperglycemia, unspecified; S01.81XA Laceration without foreign body of other part of head, initial encounter; R07.89 Other chest pain; W19.XXXA Unspecified fall, initial encounter; R79.1 Abnormal coagulation profile; Z87.891 Personal history of nicotine dependence; Z95.0 Presence of cardiac pacemaker; Z79.899 Other long term (current) drug therapy; Z79.891 Long term (current) use of opiate analgesic; Z23 Encounter for immunization
CPT/HCPCS: 33210; 36415; 70450; 71045; 71275; 72125; 80053; 83735; 83880; 84443; 84484; 85025; 85378; 90471; 90715; 93005; 93306; 94640; 96360; 96365; 96372; 96375; 99152; 99285; C1769; C1779; C1894; J0461; J1265; J1610; J1650; J2270; J2405; J3010; J7030; J7050; J7626; Q9967

== ENCOUNTER → 2022-02-26 09:07 | Outpatient (BNVA) | payer OTHER, SELFPAY | PROVIDERS: PCP Family Medicine; Visit Provider Nurse Practitioner Family | DX: I44.2 Atrioventricular block, complete (principal); I49.3 Ventricular premature depolarization | CPT/HCPCS: 93005; 99214 ==

== ENCOUNTER 2022-02-26 10:39 | Inpatient (IN) | payer OTHER, SELFPAY ==
[2022-02-26] VITALS (33 sets, daily range): BP systolic 122–161; BP diastolic 75–99; PULSE 63–107; RESP 9–27; TEMP 36.2–36.8; O2SAT 87–97; BMI 35.9
--- NOTE | 2022-02-26 10:47 | ECG_ITS ---
[facility] Test Date: 2022-02-26 Pat Name: Melvin Yan Department: Room: Gender: Male Message Clerk: : 1945 Requested By: Jozef Spann Order Number: [id number] Mildred MD: Clem Farfan M.D. Measurements Intervals [place] Rate: 66 P: 32 [place]: 307 QRS: 9 QRSD: 166 T: 153 QT: 449 QTc: 472 Interpretive Statements SINUS RHYTHM WITH FIRST DEGREE AV BLOCK WITH FREQUENT SUPRAVENTRICULAR PREMATURE COMPLEXES IN A BIGEMINAL PATTERN LEFT BUNDLE BRANCH BLOCK [120+ ms QRS DURATION, 80+ ms Q/S IN V1/V2, 85+ ms R IN I/aVL/V5/V6] Compared to ECG 02/19/2022 08:01:06 Sinus bradycardia no longer present Electronically Signed On 02-26-2022 17:36:48 CDT by Clem Farfan M.D. [email or web address]
--- NOTE | 2022-02-26 10:48 | XR_ITS ---
WS: [id number] XR chest 1V portable [id number] REASON FOR EXAM: dyspnea/cough FINDINGS: Biomed device overlying the midline of the mediastinum at the level of the aortic arch. Mild tortuosity and ectasia of the thoracic aorta. Normal heart size. Calcified granulomatous disease in both hemithoraces. No acute pulmonary parenchymal or pleural abnormality. XR/XR chest 1V portable [id number] IMPRESSION: No acute chest abnormality identified. The chest is unchanged, except for the B iomed, device compared to 02/18/2022.
--- NOTE | 2022-02-26 11:08 | ED_ITS ---
HPI - General Adult General: Chief complaint: Shortness of Breath/Dyspnea Stated complaint: Dizzy/SOB Time Seen by Provider: 02/26/22 11:06 History of Present Illness: Patient is a 76-year-old male with hyperlipidemia, COPD, BPH, former smoker, aortic stenosis who presents the emergency room for concerns of lightheadedness and bradycardia per request of Dr. Dueñas. Patient was initially admitted to the hospital on 02/18 at that point time was diagnosed with Mobitz type I, left bundle branch likely metoprolol related low heart rate. Since discharge, patient follows with Dr. Dueñas's office. Patient was seen earlier today with Madeleine Interiano however patient has had increased episodes of lightheadedness. Patient has had 4 seconds of pause yesterday as well as multiple episodes of PAC in the last few days. Patient tells me that he did not pass out recently. Patient denies any chest pain, focal weakness in the arms or legs, diarrhea/melena/hematochezia. Patient is no longer taking metoprolol. Patient had an episode of fall about a week and a half ago. No other focal c omplaints at this time. Onset: acute on chronic Duration:3 months Location:home Severity:moderate Associated symptoms: Deny chest pain, dyspnea, nausea, rash, palpitations or vomiting Review of Systems Const: Denies: fever(s) or chills Eyes: Denies: change in vision ENMT: Denies: mouth pain Card: Reports: other (palpitations); Denies: chest pain or palpitations Resp: Denies: dyspnea or non-productive cough GI: Denies: abdominal pain, nausea, vomiting or diarrhea : Denies: dysuria Musc: Denies: extremity pain Skin/Breast: Denies: rash or new lesions Neuro: Reports: other (+light-headedness); Denies: weakness in extremities Psych: Reports: other (Normal mood) Joseph/Lymph: Denies: easy bruising PFSH ED PFSH: Medical History Aortic valve stenosis Benign essential hypertension with target blood pressure below 140/90 Chlorthalidone added BPH (benign prostatic hyperplasia) Chronic back pain COPD (chronic obstructive pulmonary disease) COPD exacerbation No evidence of COPD exacerbation Dyslipidemia Elevated cholesterol noted. Will refer to primary care provider Hypertension PTSD (post-traumatic stress disorder) Surgical History History of appendectomy History of back surgery Family History Mother Cancer Social History Smoking and tobacco status: former smoker Alcohol intake: never Physical Exam Const: COMMON NORMALS: alert HENMT: COMMON NORMALS: atraumatic HEAD & SCALP: atraumatic MOUTH: moist mucous membranes not abnormal Eye: COMMON NORMALS: EOMs intact bilaterally and conjunctivae normal CONJUNCTIVA: Yes conjunctivae normal Neck/C-Spine: COMMON NORMALS: full ROM and supple Resp: COMMON NORMALS: normal respiratory effort and clear to auscultation bilaterally AUSCULTATION: clear to auscultation bilaterally Cardio: COMMON NORMALS: regular rate RATE: regular rate GI: COMMON NORMALS: Soft to palpation and non-tender PALPATION: Yes Soft to palpation Extremity: COMMON NORMALS: full ROM Neuro: SENSORIUM/ORIENTATION: Yes alert MOTOR EXAM: No Abnormal motor strength present and Other motor observations present (no focal motor deficits) Psych: COMMON NORMALS: speech normal SPEECH: Yes normal speech MOOD & AFFECT: Yes euthymic mood Course Vital Signs: Vital signs: Vital Signs Temperature 97.9 F 02/26/22 10:53 Pulse Rate 92 02/26/22 12:00 Respiratory Rate 17 02/26/22 12:00 Blood Pressure 122/75 02/26/22 12:00 Pulse Oximetry 95 02/26/22 12:00 Oxygen Delivery Me thod 02/26/22 12:00 [facility] - General Adult Medical Decision Making Patient is a 76-year-old male with hyperlipidemia, COPD, BPH, former smoker, aortic stenosis who presents the emergency room for concerns of lightheadedness and bradycardia per request of Dr. Dueñas. On exam, patient is hemodynamically stable, patient noted to have heart rate anywhere from 50-60. Initial EKG showed first-degree AV block with prolonged QRS and occasional PAC. There is no signs of 30 degree heart block or high degree heart block. Lab work-up including electrolytes and troponin within normal limit. X-ray chest appears to be clear. Case was discussed with Dr. Dueñas who will like patient to be admitted for possible pacemaker placement. Disposition: admission Lab Data : 02/26/22 11:17 02/26/22 11:17 Radiology Impressions Chest X-Ray 02/26/22 10:48 IMPRESSION: No acute chest abnormality identified. The chest is unchanged, except for the Biomed, device compared to 02/18/2022. Laboratory Results WBC 8.4 10^3/uL (4.0-10.0) 02/26/22 11:17 RBC 4.95 10^6/uL (4.1-5.3) 02/26/22 11:17 Hgb 16.6 g/dL (11.7-16.6) 02/26/22 11:17 Hct 48.2 % (42.0-52.0) 02/26/22 11:17 MCV 97.4 fl (80-94) H 02/26/22 11:17 MCH 33.5 pg (28.0-34.0) 02/26/22 11:17 MCHC 34.4 g/dL (30.0-36.0) 02/26/22 11:17 RDW 12.7 % (12.1-15.1) 02/26/22 11:17 Plt Count 249 10^3/cmm (130-400) 02/26/22 11:17 MPV 11.0 fL (7.4-10.4) H 02/26/22 11:17 Neut % (Auto) 67.1 % 02/26/22 11:17 Lymph % (Auto) 22.4 % 02/26/22 11:17 [place] % (Auto) 8.4 % 02/26/22 11:17 Eos % (Auto) 1.2 % 02/26/22 11:17 Baso % (Auto) 0.7 % 02/26/22 11:17 Neut # (Auto) 5.61 10^3/uL (1.8-7.7) 02/26/22 11:17 Lymph # (Auto) 1.9 10^3/uL (0.8-4.8) 02/26/22 11:17 [place] # (Auto) 0.7 10^3/uL (0.2-0.9) 02/26/22 11:17 Eos # (Auto) 0.1 10^3/uL (0.0-0.8) 02/26/22 11:17 Baso # (Auto) 0.1 10^3/uL (0.0-0.1) 02/26/22 11:17 Nucleated RBC % (auto) 0 % 02/26/22 11:17 Nucleated RBCs # 0.0 /100WBC 02/26/22 11:17 Sodium 136 mmol/L (136-145) 02/26/22 11:17 Potassium 3.5 mmol/L (3.5-5.1) 02/26/22 11:17 Chloride 96 mmol/L (98-107) L 02/26/22 11:17 Carbon Dioxide 26 mmol/L (22-29) 02/26/22 11:17 Anion Gap 17.5 (5-19) 02/26/22 11:17 BUN 18 mg/dL (8-23) 02/26/22 11:17 Creatinine 0.8 mg/dL (0.7-1.2) 02/26/22 11:17 GFR Calculation Not Reportable 02/26/22 11:17 Glucose 154 mg/dL (65-115) H 02/26/22 11:17 Calculated Osmolality 287 mOsm/kg (285-295) 02/26/22 11:17 Calcium 10.2 mg/dL (8.5-10.5) 02/26/22 11:17 Magnesium 1.9 mg/dL (1.7-2.3) 02/26/22 11:17 Total Bilirubin 0.3 mg/dL (0.15-1.2) 02/26/22 11:17 AST 17 U/L (0-40) 02/26/22 11:17 ALT 32 U/L (0-41) 02/26/22 11:17 Alkaline Phosphatase 103 U/L (40-130) 02/26/22 11:17 Troponin T Baseline 11 ng/L (0-15) 02/26/22 11:17 Total Protein 7.9 g/dL (6.6-8.7) 02/26/22 11:17 Albumin 4.3 g/dL (3.5-5.2) 02/26/22 11:17 Globulin 3.6 g/dL (1.3-4.6) 02/26/22 11:17 Urine Color Yellow (Yellow) 02/26/22 11:41 Urine Appearance Clear (CLEAR) 02/26/22 11:41 Urine pH 5.5 (5-7) 02/26/22 11:41 Ur Specific [place] 1.020 (1.005-1.030) 02/26/22 11:41 Urine Protein Negative (Negative) 02/26/22 11:41 Urine Glucose (UA) Negative (Normal) 02/26/22 11:41 Urine Ketones Negative (Negative) 02/26/22 11:41 Urine Blood Small (Negative) A 02/26/22 11:41 Urine Nitrate Negative 02/26/22 11:41 Urine Bilirubin Negative (Negative) 02/26/22 11:41 Urine Urobilinogen 0.2 mg/dL (Negative) 02/26/22 11:41 Ur Leukocyte Esterase Negative (Negative) 02/26/22 11:41 Urine RBC Rare /hpf (0-2) 02/26/22 11:41 Urine WBC 5-10 /hpf (0-5) H 02/26/22 11:41 Ur Squamous Epith Cells None /hpf (0-5) 02/26/22 11:41 Amorphous Sediment Not Reportable 02/26/22 11:41 Urine Bacteria Trace /hpf (NONE) 02/26/22 11:41 Imaging Data Other Imaging: Radiologist's impression: Close Chest X-Ray (Signed) Unruly Albarado Jr - 02/26/22 Launch?Image [address] [place] [address] XRay Report Signed Patient: Melvin Yan Unit #: [id number] : 1945 Age/Sex: 76 / M ADM Date: 02/26/22 Loc: ER Room/Bed: Attending Dr: Ordering Provider/Ordering MD: Jozef Jason DO Date of Service: 02/26/22 Procedure(s): XR chest 1V portable 73616 Accession Number(s): [id number] Report Number: [id number] WS: [id number] XR chest 1V portable [id number] REASON FOR EXAM: dyspnea/cough FINDINGS: Biomed device overlying the midline of the mediastinum at the level of the aortic arch. Mild tortuosity and ectasia of the thoracic aorta. Normal heart size. Calcified granulomatous disease in both hemithoraces. No acute pulmonary parenchymal or pleural abnormality. XR/XR chest 1V portable [id number] IMPRESSION: No acute chest abnormality identified. The chest is unchanged, except for the Biomed, device compared to 02/18/2022. ? ? Dictated By: Unruly Albarado Jr, MD Signed By: Unruly Albarado Jr, MD Signed Date/Time: 02/26/22 112 DD/ 112 Discharge Plan Discharge Patient Disposition: Admitted As Inpatient Clinical Impression: Palpitation, Light headedness Condition: Stable Coding Level of Care Code ED Nailhead Puncher for Chg Fwd Exam Comprehensive
[2022-02-26 11:22] LABS: Basophils # 0.1 10^3/uL (0.0-0.1); Basophils % 0.7 %; Eosinophils # 0.1 10^3/uL (0.0-0.8); Eosinophils % 1.2 %; Hematocrit 48.2 % (42.0-52.0); Hemoglobin 16.6 g/dL (11.7-16.6); Lymphocytes # 1.9 10^3/uL (0.8-4.8); Lymphocytes % 22.4 %; Mean Corpuscular HGB Conc 34.4 g/dL (30.0-36.0); Mean Corpuscular Hemoglobin 33.5 pg (28.0-34.0); Mean Corpuscular Volume 97.4 fl (80-94); Monocytes # 0.7 10^3/uL (0.2-0.9); Monocytes % 8.4 %; Neutrophils # 5.61 10^3/uL (1.8-7.7); Neutrophils % 67.1 %; Nucleated Red Blood Cells % 0 %; Platelet Count 249 10^3/cmm (130-400); Red Blood Count 4.95 10^6/uL (4.1-5.3); Red Cell Distribution Width 12.7 % (12.1-15.1); White Blood Count 8.4 10^3/uL (4.0-10.0)
[2022-02-26 11:38] LABS: Alanine Aminotransferase 32 U/L (0-41); Albumin Level 4.3 g/dL (3.5-5.2); Alkaline Phosphatase 103 U/L (40-130); Blood Urea Nitrogen 18 mg/dL (8-23); Calcium 10.2 mg/dL (8.5-10.5); Carbon Dioxide 26 mmol/L (22-29); Chloride 96 mmol/L (98-107); Creatinine Clr Calc Pharmacy 102.1616; Globulin 3.6 g/dL (1.3-4.6); Glucose 154 mg/dL (65-115); Magnesium 1.9 mg/dL (1.7-2.3); Osmolality Calculated 287 mOsm/kg (285-295); Sodium 136 mmol/L (136-145); Total Bilirubin 0.3 mg/dL (0.15-1.2); Total Protein 7.9 g/dL (6.6-8.7)
[2022-02-26 11:41] LABS: Anion Gap 17.5 (5-19); Aspartate Amino Transferase 17 U/L (0-40); Potassium 3.5 mmol/L (3.5-5.1)
[2022-02-26 11:53] LABS: Bilirubin Urine Negative (Negative); Blood Urine Small (Negative); Glucose Urine UA Negative (Normal); Ketones Urine Negative (Negative); Leukocyte Esterase Urine Negative (Negative); Nitrate Urine Negative; Protein Urine Negative (Negative); Urine Appearance Clear (CLEAR); Urine Color Yellow (Yellow); Urobilinogen Urine 0.2 mg/dL (Negative); pH Urine 5.5 (5-7)
--- NOTE | 2022-02-26 11:56 | ECG_ITS ---
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 Measurements Intervals [place] Rate: 64 P: -65 MA: 286 QRS: -3 QRSD: 165 T: 143 QT: 463 QTc: 479 Interpretive Statements SINUS RHYTHM WITH FIRST DEGREE AV BLOCK WITH FREQUENT SUPRAVENTRICULAR PREMATURE COMPLEXES LEFT BUNDLE BRANCH BLOCK [120+ ms QRS DURATION, 80+ ms Q/S IN V1/V2, 85+ ms R IN I/aVL/V5/V6] Compared to ECG 02/26/2022 11:00:59 No significant changes Electronically Signed On 02-26-2022 17:36:39 CDT by Clem Farfan M.D. [email or web address]
[2022-02-26 12:01] LABS: Add Urine Microscopic? YES
[2022-02-26 12:02] LABS: Add Urine Culture? No; Bacteria Urine TRACE /hpf; RBC Urine RARE /hpf (0-2)
[2022-02-26 12:44] LABS: Troponin(5th) Baseline 11 ng/L (0-15)
[2022-02-26 13:44] LABS: Troponin 5 2HR 10.58 ng/L (0-15)
[2022-02-26 13:51] LABS: Troponin 5 2HR Delta 0.42 ABS# (0-10)
--- NOTE | 2022-02-26 13:56 | ECG_ITS ---
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 Measurements Intervals [place] Rate: 72 P: 35 WI: 314 QRS: 8 QRSD: 164 T: 135 QT: 469 QTc: 516 Interpretive Statements SINUS RHYTHM WITH FIRST DEGREE AV BLOCK LEFT BUNDLE BRANCH BLOCK [120+ ms QRS DURATION, 80+ ms Q/S IN V1/V2, 85+ ms R IN I/aVL/V5/V6] Compared to ECG 02/26/2022 12:05:33 No significant changes Electronically Signed On 02-26-2022 17:41:44 CDT by Clem Farfan M.D. [email or web address]
--- NOTE | 2022-02-26 17:26 | PM.HP ---
Providers/Chief Complaint Admitting Physician: Lily Sanchez MD Primary Care Provider: Tatiana Thomson MD Chief Complaint: Dizzy/SOB History of Present Illness Melvin Yan is a 76 year old male who presented from cardiology clinic with complaint of not feeling right. It was relayed to emergency provider as dizziness. He says he was not really dizzy today. He just felt like something was not right and felt tired and weak all over somewhat acutely at the end of clinic. He had some mild nausea but no vomiting. Not able to really describe what happened today any further. Sounds like it may have been after getting up and heading out though difficult to get an exact sequence. Was the first time he had felt exactly like that. Patient was here last week after an episode syncope where he was found to have third-degree heart block. He had been on metoprolol. Blockade was stopped and patient had temporary transvenous pacer. With cessation of beta-blockade and heart rate improved. Patient did have continued pauses noted on telemetry monitoring but they were asymptomatic. He was discharged with a 21-day monitor. Yesterday he had an episode of dizziness that was found to be associated with telemetry strip again showing third-degree heart block. Today upon presentation to clinic initial heart rate was 36. At that time patient was not particularly symptomatic but later on heart rate was as high as in the low 100s. Telemetry monitoring in the emergency room showed heart rate ranging from 50s to 100s. ER provider reviewed the case with Dr. Dueñas. Recommendation was for admission for pacemaker placement. Off of beta-blockade since last week. Patient's home medication list shows anticoagulation: apixaban. This prescription was written on February 21 by Madeleine Interiano after event monitor reports showed episodes of atrial fibrillation. [facility] has not received the prescription [facility] yet and has NOT TAKEN any form of oral anticoagulation to date. Review of Systems Const: Reports: body aches, fatigue and malaise; Denies: fever(s) or chills Eyes: Reports: other (Still with black eye that is healing from syncope last week); Denies: change in vision or blurry vision ENMT: Denies: throat pain or nasal congestion Card: Reports: chest pain, palpitations, swelling of feet/ankles, lightheadedness and dyspnea on exertion; Denies: syncope (No recurrent syncope since last week) Resp: Reports: dyspnea; Denies: productive cough, non-productive cough or pain on inspiration GI: Reports: abdominal pain (occured after arrival to floor, under rib cage bilateral, sharp) and nausea; Denies: vomiting, diarrhea, constipation (last BM today, normal for him), hematochezia or melena : Reports: other (Chronic self-catheterization); Denies: hematuria Musc: Reports: back pain (Chronic) Skin/Breast: Reports: other (Healing bruises from fall last week); Denies: rash or pruritus Neuro: Reports: weakness in extremities (General rather than focal) and dizziness; Denies: headache(s), sensory changes, confusion or Slurred speech present Psych: Reports: anxiety (Because of acute issues) Joseph/Lymph: Denies: easy bruising or easy bleeding Medications/Allergies Home Medications Medication Instructions Recorded Confirmed Last Taken Type albuterol sulfate 90 mcg/actuation 2 puff inhalation QID PRN 07/24/19 02/26/22 Unknown History aerosol inhaler (ProAir HFA) Shortness Of Breath amlodipine 10 mg tablet (Norvasc) 10 mg PO DAILY 07/24/19 02/26/22 02/26/22 History budesonide-formoterol HFA 160 2 puff inhalation BID 07/24/19 02/26/22 02/26/22 History mcg-4.5 mcg/actuation aerosol inhaler (Symbicort) calcium polycarbophil 625 mg 1,875 mg PO BID ##0 07/24/19 02/26/22 02/26/22 History tablet (Fiber-Tabs) cetirizine 10 mg tablet (Zyrtec) 10 mg PO DAILY PRN Allergic 07/24/19 02/26/22 Unknown History Reaction multivitamin (Multiple Vitamins 1 tab PO DAILY 07/24/19 02/26/22 02/26/22 History tablet) omega 9-xsn-xis-fish oil 1,200 mg 1 cap PO BID ##0 07/24/19 02/26/22 02/26/22 History (144 mg-216 mg) capsule (Fish Oil) sertraline 100 mg tablet 100 mg PO DAILY 07/24/19 02/26/22 02/26/22 History chlorthalidone 25 mg tablet 25 mg PO DAILY #30 tabs 07/25/19 02/26/22 02/26/22 Rx hydrocodone 10 mg-acetaminophen 1 tab PO Q6H PRN Pain 02/18/22 02/26/22 02/26/22 History 325 mg tablet apixaban 5 mg tablet (Eliquis) 5 mg PO BID #180 tabs 02/21/22 02/26/22 Unknown Rx atorvastatin 40 mg tablet 20 mg PO QPM 02/26/22 02/26/22 02/25/22 History fluorouracil 0.5 % topical cream 1 applic topical DAILY 02/26/22 02/26/22 Unknown History garlic 1,000 mg capsule (garlic 1,000 mg PO DAILY 02/26/22 02/26/22 02/26/22 History oil) valsartan 160 mg tablet 160 mg PO DAILY 02/26/22 02/26/22 Unknown History Allergies Allergy/AdvReac Type Severity Reaction Status Date / Time No Known Allergies Allergy Verified 02/26/22 13:30 Additional Medication Information HAS NOT TAKEN ANY APIXIBAN as of date of admission H&P 02/26/2022 PFSH Acute PFSH: Medical History (Updated 02/26/22 @ 21:36 by Lily Sanchez MD) Aortic valve stenosis EDIE 2.0 cm2 in 2019, technically difficult study on repeat 01/2025 showed apparent thickening of aortic valve/sclerosis BPH (benign prostatic hyperplasia) Chronic back pain COPD (chronic obstructive pulmonary disease) Dyslipidemia History of cardiovascular stress test 10/2018 at [facility], unremarkable 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 transvenous pacer 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, 3rd degree heart block resolved, had 1st degree block Hypertension Left bundle branch block PTSD (post-traumatic stress disorder) Surgical History (Updated 02/26/22 @ 21:20 by Lily Sanchez MD) History of appendectomy History of back surgery X2 History of cataract surgery Family History Mother Cancer Social History (Updated 02/26/22 @ 21:28 by Lily Sanchez MD) Smoking and tobacco status: former smoker Alcohol intake: current Alcohol intake frequency: few times a week Alcohol type: beer Substance/Drug Use: never Vitals/I&O/Wt Last Vital Signs Temp 98.3 F 02/26/22 16:07 Pulse 79 02/26/22 16:07 Resp 17 02/26/22 16:07 BP 161/97 02/26/22 16:07 Pulse Ox 96 02/26/22 16:07 O2 Del Method 02/26/22 13:18 Weight last 48 hrs Weight 113.398 kg Physical Exam Narrative: Constitutional: Awake and alert, cooperative HEENT: Normocephalic except for some bruising noted underneath the left eye, healing, ocular movements are intact, pupils are reactive, oropharynx with moist mucous membranes Neck: Large but supple Respiratory: Clear to auscultation bilaterally without any wheezes noted Cardiovascular: Irregular rhythm, no murmurs or rubs noted, 2+ radial pulses Abdomen: Soft, rotund, tenderness in the upper quadrants without rebound or guarding, positive bowel sounds : Normal external Extremities: No pitting edema or calf tenderness Skin: Dry, chronic changes, scattered ecchymoses that appear to be iatrogenic except for the bruising around the left eye Neuro: Speech clear, face symmetric, no tremors, handgrip equal Psych: Anxious affect Data : 02/26/22 11:17 02/26/22 11:17 Other Labs: Radiology Impressions Chest X-Ray 02/26/22 10:48 IMPRESSION: No acute chest abnormality identified. The chest is unchanged, except for the Biomed, device compared to 02/18/2022. Laboratory Results WBC 8.4 10^3/uL (4.0-10.0) 02/26/22 11:17 RBC 4.95 10^6/uL (4.1-5.3) 02/26/22 11:17 Hgb 16.6 g/dL (11.7-16.6) 02/26/22 11:17 Hct 48.2 % (42.0-52.0) 02/26/22 11:17 MCV 97.4 fl (80-94) H 02/26/22 11:17 MCH 33.5 pg (28.0-34.0) 02/26/22 11:17 MCHC 34.4 g/dL (30.0-36.0) 02/26/22 11:17 RDW 12.7 % (12.1-15.1) 02/26/22 11:17 Plt Count 249 10^3/cmm (130-400) 02/26/22 11:17 MPV 11.0 fL (7.4-10.4) H 02/26/22 11:17 Neut % (Auto) 67.1 % 02/26/22 11:17 Lymph % (Auto) 22.4 % 02/26/22 11:17 Lasalle % (Auto) 8.4 % 02/26/22 11:17 Eos % (Auto) 1.2 % 02/26/22 11:17 Baso % (Auto) 0.7 % 02/26/22 11:17 Neut # (Auto) 5.61 10^3/uL (1.8-7.7) 02/26/22 11:17 Lymph # (Auto) 1.9 10^3/uL (0.8-4.8) 02/26/22 11:17 Lasalle # (Auto) 0.7 10^3/uL (0.2-0.9) 02/26/22 11:17 Eos # (Auto) 0.1 10^3/uL (0.0-0.8) 02/26/22 11:17 Baso # (Auto) 0.1 10^3/uL (0.0-0.1) 02/26/22 11:17 Nucleated RBC % (auto) 0 % 02/26/22 11:17 Nucleated RBCs # 0.0 /100WBC 02/26/22 11:17 Sodium 136 mmol/L (136-145) 02/26/22 11:17 Potassium 3.5 mmol/L (3.5-5.1) 02/26/22 11:17 Chloride 96 mmol/L (98-107) L 02/26/22 11:17 Carbon Dioxide 26 mmol/L (22-29) 02/26/22 11:17 Anion Gap 17.5 (5-19) 02/26/22 11:17 BUN 18 mg/dL (8-23) 02/26/22 11:17 Creatinine 0.8 mg/dL (0.7-1.2) 02/26/22 11:17 GFR Calculation Not Reportable 02/26/22 11:17 Glucose 154 mg/dL (65-115) H 02/26/22 11:17 Calculated Osmolality 287 mOsm/kg (285-295) 02/26/22 11:17 Calcium 10.2 mg/dL (8.5-10.5) 02/26/22 11:17 Magnesium 1.9 mg/dL (1.7-2.3) 02/26/22 11:17 Total Bilirubin 0.3 mg/dL (0.15-1.2) 02/26/22 11:17 AST 17 U/L (0-40) 02/26/22 11:17 ALT 32 U/L (0-41) 02/26/22 11:17 Alkaline Phosphatase 103 U/L (40-130) 02/26/22 11:17 Troponin T Baseline 11 ng/L (0-15) 02/26/22 11:17 Troponin T 120 Minute 10.58 ng/L (0-15) 02/26/22 13:12 Delta Troponin T 0.42 ABS# (0-10) 02/26/22 13:12 Total Protein 7.9 g/dL (6.6-8.7) 02/26/22 11:17 Albumin 4.3 g/dL (3.5-5.2) 02/26/22 11:17 Globulin 3.6 g/dL (1.3-4.6) 02/26/22 11:17 Urine Color Yellow (Yellow) 02/26/22 11:41 Urine Appearance Clear (CLEAR) 02/26/22 11:41 Urine pH 5.5 (5-7) 02/26/22 11:41 Ur Specific Spencer 1.020 (1.005-1.030) 02/26/22 11:41 Urine Protein Negative (Negative) 02/26/22 11:41 Urine Glucose (UA) Negative (Normal) 02/26/22 11:41 Urine Ketones Negative (Negative) 02/26/22 11:41 Urine Blood Small (Negative) A 02/26/22 11:41 Urine Nitrate Negative 02/26/22 11:41 Urine Bilirubin Negative (Negative) 02/26/22 11:41 Urine Urobilinogen 0.2 mg/dL (Negative) 02/26/22 11:41 Ur Leukocyte Esterase Negative (Negative) 02/26/22 11:41 Urine RBC Rare /hpf (0-2) 02/26/22 11:41 Urine WBC 5-10 /hpf (0-5) H 02/26/22 11:41 Ur Squamous Epith Cells None /hpf (0-5) 02/26/22 11:41 Amorphous Sediment Not Reportable 02/26/22 11:41 Urine Bacteria Trace /hpf (NONE) 02/26/22 11:41 Other data: 02/18/2022 ECHO CONCLUSIONS ?Normal LV size with a borderline low ejection fraction of around ?50%.? Mild diffuse hypokinesia of the septum. ?Segmental wall motion analysis difficult because of the poor ?apical window. ?Mildly increased left atrial size. ?Thickened aortic valve with a features of aortic valve ?sclerosis.Leaflets not well visualized ?There is no pericardial effusion. ?Technically difficult study Echo from 2019 with valve area 2.0 cm2 02/18/2022 CTA chest negative for PE, no aneurysms or dissection noted, coronary calcifications present, lungs without consolidation. 02/18/2022 CT head w/o no acute findings A&P Assessment and plan (1) Malaise and fatigue: Today, somewhat acute in onset, possibly with position change at clinic, with heart rate ranging from 36 to 107 on clinic and ED checks and/or monitoring. Work up in ER, beyond rhythm abnormalities, showed only elevated blood sugar. Symptoms of weakness, malaise, fatigue could be symptomatic from arrhythmia, hyper- or hypotension, medication effect, early acute illness, effect from hyperglycemia, among other diagnoses. When combined with dizziness and 3rd degree AVB, finding of atrial fibrillation on event monitoring, variable heart rates, suspect related to arrhythmia. (2) Light headedness: On 02/25/2022 coinciding with recurrent 3rd degree heart block noted on event monitor. Not recurrent today. Had sncope with loss of consciousness last week (3) Third degree heart block: Intermittent, persistent despite stopping beta joe. identified 02/25/2022 on event monitor coinciding with acute dizziness. Known to have chronic left bundle branch block. Has had intermittent findings of atrial fibrillation on ekgs and event monitor strips. Anticoagulation prescribed on 02/21/2022 for atrial fibrillation but NONE has been taken to date at time of admission. (4) Hyperglycemia: No history of diabetes, sugars 120-165 in records here dating back to 2019, 135-165 in 01/2022. Undiagnosed diabetes could be playing into his symptom presentation in addition to arrhythmia. (5) Aortic valve sclerosis: Versus stenosis, echo 02/18/2022 technically difficult study showed thickened valve leaflets. EDIE in 2019 was 2.0 cm2. (6) Hypertension: Variable but stable since coming off of metoprolol, generally ranging 140s-150s at home systolic. On amlodipine and valsartan chronically along with chlorthalidone. (7) Dyslipidemia: On chronic statin therapy (8) COPD (chronic obstructive pulmonary disease): Not currently acute. Chronically on symbicort and albuerol Qualifiers: COPD type: emphysema Emphysema type: unspecified Qualified Code(s): J43.9 - Emphysema, unspecified (9) Chronic back pain: S/P 2 prior back surgeries, on chronic hydrocodone (10) BPH (benign prostatic hyperplasia): Does intermittent self catheterization for this Plan Inpatient admission Telemetry monitoring Continue serial cardiac enzymes Cardiology consultation, Dr. Dueñas is aware Patient has not had any oral anticoagulation to date, apixaban prescription was written but has not yet been received in the mail We will start on Lovenox treatment dose for now Dr. Dueñas will work on obtaining event reports from monitor from today Tentative plan is for pacemaker placement given symptoms, persistent arrhythmia with third-degree block noted again yesterday and variability in heart rate identified along with atrial fibrillation Sliding scale insulin and Accu-Cheks, check hemoglobin A1c New home amlodipine, ARB and chlorthalidone Monitor blood pressures for need to adjust medications Continue statin therapy Continue inhalers, substituting Advair for Symbicort for formulary reasons Continue home hydrocodone for pain Martínez catheter given frequency of intermittent self-catheterization for chronic urinary retention, 10-14 times a day, that patient usually does given risk associated with presentation and comorbidities PPI Lovenox to provide VTE coverage currently Supportive care otherwise Anticipate discharge home with close outpatient follow-up to cardiology, possibly with medication adjustments including potential addition of diabetic medication. Findings, plans and concerns as noted were discussed with patient and he was given an opportunity to ask questions Full code Attestations Medical Necessity Statement*: Anticipated stay greater than 2 midnights in this patient presenting again with symptomatic bradycardia this time captured on event monitor is being associated with third-degree heart block. Today also with symptoms and has demonstrated variable heart rate from 30s to 100s along with finding of atrial fibrillation on event monitor. Necessitates pacemaker placement. In addition has other issues as noted with plans as indicated. 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
--- NOTE | 2022-02-26 17:56 | ECG_ITS ---
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 Measurements Intervals [place] Rate: 69 P: [place]: QRS: -21 QRSD: 166 T: 134 QT: 480 QTc: 516 Interpretive Statements ATRIAL FIBRILLATION LEFT BUNDLE BRANCH BLOCK [120+ ms QRS DURATION, 80+ ms Q/S IN V1/V2, 85+ ms R IN I/aVL/V5/V6] Compared to ECG 02/26/2022 14:37:45 Sinus rhythm no longer present First degree AV block no longer present Electronically Signed On 02-26-2022 17:40:06 CDT by Clem Farfan M.D. [id number]
[2022-02-26] MEDS: omega-3 fatty acids 1,000 mg Capsule 1000 MG PO (18:14)
[2022-02-26] MEDS: HYDROcodone-acetaminophen 10-325 mg Tablet 1 TAB PO ×2 (19:22→22:21)
[2022-02-26 20:01] LABS: Troponin 5 6HR 8.45 ng/L (0-15)
[2022-02-26 20:15] LABS: Troponin 5 6HR Delta -2.55 ng/L (0-12)
[2022-02-26] MEDS: atorvastatin 40 mg Tablet 20 MG PO (21:19)
[2022-02-26] MEDS: enoxaparin 100 mg/mL Syringe SUBCUT (22:21)
[2022-02-27] VITALS (12 sets, daily range): BP systolic 107–163; BP diastolic 66–107; PULSE 67–112; RESP 16–24; TEMP 35.8–36.9; O2SAT 91–96
[2022-02-27 03:07] LABS: Basophils # 0.1 10^3/uL (0.0-0.1); Basophils % 0.8 %; Eosinophils # 0.2 10^3/uL (0.0-0.8); Eosinophils % 1.9 %; Hemoglobin 14.4 g/dL (11.7-16.6); Lymphocytes # 2.7 10^3/uL (0.8-4.8); Lymphocytes % 30.2 %; Mean Corpuscular HGB Conc 34.3 g/dL (30.0-36.0); Mean Corpuscular Volume 99.1 fl (80-94); Monocytes # 0.7 10^3/uL (0.2-0.9); Monocytes % 8.3 %; Neutrophils # 5.23 10^3/uL (1.8-7.7); Neutrophils % 58.4 %; Nucleated Red Blood Cells % 0 %; Platelet Count 200 10^3/cmm (130-400); Red Blood Count 4.24 10^6/uL (4.1-5.3); Red Cell Distribution Width 12.8 % (12.1-15.1)
[2022-02-27 03:21] LABS: Estmated Average Glucose 134; Hemoglobin A1C 6.3 % (4.0-6.0); INR 1.17 (0.8-1.2)
[2022-02-27 03:26] LABS: Anion Gap 15.2 (5-19); Blood Urea Nitrogen 16 mg/dL (8-23); Calcium 9.1 mg/dL (8.5-10.5); Carbon Dioxide 28 mmol/L (22-29); Chloride 98 mmol/L (98-107); Creatinine Clr Calc Pharmacy 102.1616; Glucose 176 mg/dL (65-115); Magnesium 1.8 mg/dL (1.7-2.3); Osmolality Calculated 291 mOsm/kg (285-295); Potassium 3.2 mmol/L (3.5-5.1); Sodium 138 mmol/L (136-145)
[2022-02-27 06:12] LABS: Glucose Point of Care 120 mg/dL (70-110)
--- NOTE | 2022-02-27 07:36 | PM.CONSULT ---
Providers/Reason For Consult Consulting Physician/Specialty*: MAVERICK Dueñas MD/Cardiology Reason for Consult*: Patient with a symptomatic bradycardia/atrial fibrillation/high degree AV block Attending Physician: Lily Sanchez MD Primary Care Provider: Tatiana Thomson MD History of Present Illness History of Present Illness Melvin Yan is a 76 year old male, is admitted to the hospital through the emergency room, where he presented with complaints of dizziness. This patient was recently admitted to hospital with complaints of dizziness/syncopal episode. He was found to be in high degree AV block with a heart rate in the 30s. He also was taking metoprolol 200 mg p.o. daily at that time. He had a temporary pacemaker insertion at that time. He was taken off the metoprolol. His heart rate started coming up. He went back into sinus rhythm with a heart rate in the 70s and 80s on telemetry. At that point the temporary wire was discontinued. He was discharged home with an event monitor. The event monitor later on showed atrial fibrillation with rapid ventricular rate. For that reason, he was placed on a small dose of metoprolol-25 mg p.o. twice daily. He had an episode of dizziness on Saturday, 03-17 associated with a 4-second pause. He was seen in the clinic yesterday and was found to have a heart rate of 36 in the morning. Apparently he did not have any symptoms at that time. Later on he was found to have heart rate in the 70s and 80s but with a lot of PACs and short runs of atrial fibrillation. He was complaining of dizziness at that time. He did not have any chest pain or palpitations at this point. He was evaluated in the emergency room for the dizziness. He was found to be going back into the heart rate of 30s. For that reason, he is currently admitted to the hospital to consider a permanent pacer implantation. This patient is known to have high blood pressure, dyslipidemia, COPD and aortic valve sclerosis. He had a Myocardial perfusion imaging in 2019 in [place] and was found to have no evidence of ischemia at that time. He is complaining of slight discomfort in the chest, more or less constant. No fever, chills or cough. No other specific complaint. Review of Systems Narrative: CONSTITUTIONAL: No fever or chills. EYES: No blurring of vision or other visual disturbances lately. ENT: No hoarseness of voice, auditory disturbances or sore throat. CARDIOVASCULAR: As mentioned above. RESPIRATORY: No significant cough. GASTROINTESTINAL: No hematemesis or melena. GENITOURINARY: No dysuria or hematuria. INTEGUMENTARY: No skin rashes or history of skin cancer. NEURO: No transient ischemic attacks or amaurosis. PSYCHIATRIC: No history of psychosis or major depression. HEMATOLOGIC: No bleeding disorders or significant anemia. ENDOCRINE: No history of polyuria or polydipsia. MUSCULOSKELETAL: No recent joint pain or swelling. ALLERGY/IMMUNOLOGY: As mentioned above. Medications/Allergies Home Medications Medication Instructions Recorded Confirmed Last Taken Type albuterol sulfate 90 mcg/actuation 2 puff inhalation QID PRN 07/24/19 02/26/22 Unknown History aerosol inhaler (ProAir HFA) Shortness Of Breath amlodipine 10 mg tablet (Norvasc) 10 mg PO DAILY 07/24/19 02/26/22 02/26/22 History budesonide-formoterol HFA 160 2 puff inhalation BID 07/24/19 02/26/22 02/26/22 History mcg-4.5 mcg/actuation aerosol inhaler (Symbicort) calcium polycarbophil 625 mg 1,875 mg PO BID ##0 07/24/19 02/26/22 02/26/22 History tablet (Fiber-Tabs) cetirizine 10 mg tablet (Zyrtec) 10 mg PO DAILY PRN Allergic 07/24/19 02/26/22 Unknown History Reaction multivitamin (Multiple Vitamins 1 tab PO DAILY 07/24/19 02/26/22 02/26/22 History tablet) omega 6-skc-hcn-fish oil 1,200 mg 1 cap PO BID ##0 07/24/19 02/26/22 02/26/22 History (144 mg-216 mg) capsule (Fish Oil) sertraline 100 mg tablet 100 mg PO DAILY 07/24/19 02/26/22 02/26/22 History chlorthalidone 25 mg tablet 25 mg PO DAILY #30 tabs 07/25/19 02/26/22 02/26/22 Rx hydrocodone 10 mg-acetaminophen 1 tab PO Q6H PRN Pain 02/18/22 02/26/22 02/26/22 History 325 mg tablet apixaban 5 mg tablet (Eliquis) 5 mg PO BID #180 tabs 02/21/22 02/26/22 Unknown Rx atorvastatin 40 mg tablet 20 mg PO QPM 02/26/22 02/26/22 02/25/22 History fluorouracil 0.5 % topical cream 1 applic topical DAILY 02/26/22 02/26/22 Unknown History garlic 1,000 mg capsule (garlic 1,000 mg PO DAILY 02/26/22 02/26/22 02/26/22 History oil) valsartan 160 mg tablet 160 mg PO DAILY 02/26/22 02/26/22 Unknown History Allergies Allergy/AdvReac Type Severity Reaction Status Date / Time No Known Allergies Allergy Verified 02/26/22 13:30 Current Medications Generic Name Dose Route Start Last Admin Trade Name Freq PRN Reason Stop Dose Admin Atorvastatin Calcium 20 mg 02/26/22 21:00 02/26/22 21:19 Atorvastatin 40 Mg Tablet PO 20 mg BEDTIME SUPA Administration Calcium Polycarbophil 1,875 mg 02/26/22 18:00 02/26/22 21:20 Calcium Polycarbophil 625 Mg Tablet PO Not Given BID SUPA Enoxaparin Sodium 100 mg 02/26/22 22:00 02/26/22 22:21 Enoxaparin 100 Mg/Ml Syringe SUBCUT 100 mg Q12H SUPA Administration Insulin Human Lispro 0 unit 02/27/22 08:00 02/27/22 07:32 Insulin Lispro 100 Unit/1 Ml SUBCUT Not Given TIDWM [facility] Protocol Zulbn-9-Gywd Ethyl Esters 1,000 mg 02/26/22 18:00 02/26/22 18:14 [place]-3 Fatty Acids 1,000 Mg Capsule PO 1,000 mg BID SUPA Administration PFSH Acute PFSH: Medical History Aortic valve stenosis EDIE 2.0 cm2 in 2019, technically difficult study on repeat 01/2025 showed apparent thickening of aortic valve/sclerosis BPH (benign prostatic hyperplasia) Chronic back pain COPD (chronic obstructive pulmonary disease) Dyslipidemia History of cardiovascular stress test 10/2018 at [facility], unremarkable 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 transvenous pacer 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, 3rd degree heart block resolved, had 1st degree block Hypertension Left bundle branch block PTSD (post-traumatic stress disorder) Surgical History History of appendectomy History of back surgery X2 History of cataract surgery Family History Mother Cancer Social History Smoking and tobacco status: former smoker Alcohol intake: current Alcohol intake frequency: few times a week Alcohol type: beer Substance/Drug Use: never Vitals/I&O/Wt Last Vital Signs Temp 98.3 F 02/27/22 04:00 Pulse 67 02/27/22 06:00 Resp 24 H 02/27/22 04:00 BP 136/68 02/27/22 04:00 Pulse Ox 94 02/27/22 04:00 O2 Del Method 02/26/22 21:42 02/26/22 02/27/22 02/27/22 22:59 06:59 14:59 Intake Total 480 / 480 240 / 720 Output Total 50 / 50 300 / 350 Balance 430 / 430 -60 / 370 Weight last 48 hrs Weight 250 lb Weight 250 lb Physical Exam Narrative: GENERAL: The patient is alert and oriented times three. Not in any acute distress. Moderately obese HEENT: No significant pallor, icterus or lymphadenopathy.Oral cavity: There are no mucous membrane lesions. NECK: Trachea appears to be central. No masses noted. No JVD or thyromegaly appreciated. RESPIRATORY: Chest is symmetrical. No intercostals muscle retraction or any accessory muscle activation. There is no chest wall tenderness. Breath sounds are heard bilaterally. No rales or rhonchi heard. No evidence of any consolidation. BREASTS: Deferred. HEART: The heart sounds are normal. No S3 or S4. Ejection systolic murmur grade 3 or 6 in the aortic area. No diastolic murmurs. No pericardial rub ABDOMEN: No vessel pulsations or distention. No tenderness. No organomegaly appreciated. Bowel sounds are normally heard. : Deferred. RECTAL: Deferred. LYMPHATIC: No lymphadenopathy noted in the neck. EXTREMITIES: No edema or cyanosis. No clubbing. MUSCULOSKELETAL: No acute joint deformities or swelling SKIN: There are no significant rashes or ecchymosis NEUROPSYCHIATRIC: The patient is alert and oriented x3. Appears to be in a good mood. No tremors or rigidity noted. Urinary Catheter Management: Coude: Cath Placed During This Visit: yes Reason for Continuing Indwelling Catheter: Acute Urinary Retention or Obstruction Urinary Catheter Date of Insertion: 02/26/22 Urinary Catheter Time of Insertion: 22:00 Data : 02/27/22 02:48 02/27/22 02:48 Other Labs: Laboratory Last Values WBC 9.0 10^3/uL (4.0-10.0) 02/27/22 02:48 RBC 4.24 10^6/uL (4.1-5.3) 02/27/22 02:48 Hgb 14.4 g/dL (11.7-16.6) 02/27/22 02:48 Hct 42.0 % (42.0-52.0) 02/27/22 02:48 MCV 99.1 fl (80-94) H 02/27/22 02:48 MCH 34.0 pg (28.0-34.0) 02/27/22 02:48 MCHC 34.3 g/dL (30.0-36.0) 02/27/22 02:48 RDW 12.8 % (12.1-15.1) 02/27/22 02:48 Plt Count 200 10^3/cmm (130-400) 02/27/22 02:48 MPV 11.0 fL (7.4-10.4) H 02/27/22 02:48 Neut % (Auto) 58.4 % 02/27/22 02:48 Lymph % (Auto) 30.2 % 02/27/22 02:48 [place] % (Auto) 8.3 % 02/27/22 02:48 Eos % (Auto) 1.9 % 02/27/22 02:48 Baso % (Auto) 0.8 % 02/27/22 02:48 Neut # (Auto) 5.23 10^3/uL (1.8-7.7) 02/27/22 02:48 Lymph # (Auto) 2.7 10^3/uL (0.8-4.8) 02/27/22 02:48 [place] # (Auto) 0.7 10^3/uL (0.2-0.9) 02/27/22 02:48 Eos # (Auto) 0.2 10^3/uL (0.0-0.8) 02/27/22 02:48 Baso # (Auto) 0.1 10^3/uL (0.0-0.1) 02/27/22 02:48 Nucleated RBC % (auto) 0 % 02/27/22 02:48 Nucleated RBCs # 0.0 /100WBC 02/27/22 02:48 PT 15.30 SECONDS (12.1-14.9) H 02/27/22 02:48 INR 1.17 (0.8-1.2) 02/27/22 02:48 APTT 34.0 SECONDS (23.9-36.7) 02/27/22 02:48 Sodium 138 mmol/L (136-145) 02/27/22 02:48 Potassium 3.2 mmol/L (3.5-5.1) L 02/27/22 02:48 Chloride 98 mmol/L (98-107) 02/27/22 02:48 Carbon Dioxide 28 mmol/L (22-29) 02/27/22 02:48 Anion Gap 15.2 (5-19) 02/27/22 02:48 BUN 16 mg/dL (8-23) 02/27/22 02:48 Creatinine 0.8 mg/dL (0.7-1.2) 02/27/22 02:48 GFR Calculation Not Reportable 02/27/22 02:48 Glucose 176 mg/dL (65-115) H 02/27/22 02:48 POC Glucose 120 mg/dL (70-110) H 02/27/22 06:04 Estimat Average Glucose 134 02/27/22 02:48 Hemoglobin A1c 6.3 % (4.0-6.0) H 02/27/22 02:48 Calculated Osmolality 291 mOsm/kg (285-295) 02/27/22 02:48 Calcium 9.1 mg/dL (8.5-10.5) 02/27/22 02:48 Magnesium 1.8 mg/dL (1.7-2.3) 02/27/22 02:48 Total Bilirubin 0.3 mg/dL (0.15-1.2) 02/26/22 11:17 AST 17 U/L (0-40) 02/26/22 11:17 ALT 32 U/L (0-41) 02/26/22 11:17 Alkaline Phosphatase 103 U/L (40-130) 02/26/22 11:17 Troponin T Baseline 11 ng/L (0-15) 02/26/22 11:17 Troponin T 120 Minute 10.58 ng/L (0-15) 02/26/22 13:12 Delta Troponin T 0.42 ABS# (0-10) 02/26/22 13:12 Troponin T Hi Sens 6Hr 8.45 ng/L (0-15) 02/26/22 18:34 Troponin T Hi Sens 6Hr Delta -2.55 ng/L (0-12) L 02/26/22 18:34 Total Protein 7.9 g/dL (6.6-8.7) 02/26/22 11:17 Albumin 4.3 g/dL (3.5-5.2) 02/26/22 11:17 Globulin 3.6 g/dL (1.3-4.6) 02/26/22 11:17 Urine Color Yellow (Yellow) 02/26/22 11:41 Urine Appearance Clear (CLEAR) 02/26/22 11:41 Urine pH 5.5 (5-7) 02/26/22 11:41 Ur Specific [place] 1.020 (1.005-1.030) 02/26/22 11:41 Urine Protein Negative (Negative) 02/26/22 11:41 Urine Glucose (UA) Negative (Normal) 02/26/22 11:41 Urine Ketones Negative (Negative) 02/26/22 11:41 Urine Blood Small (Negative) A 02/26/22 11:41 Urine Nitrate Negative 02/26/22 11:41 Urine Bilirubin Negative (Negative) 02/26/22 11:41 Urine Urobilinogen 0.2 mg/dL (Negative) 02/26/22 11:41 Ur Leukocyte Esterase Negative (Negative) 02/26/22 11:41 Urine RBC Rare /hpf (0-2) 02/26/22 11:41 Urine WBC 5-10 /hpf (0-5) H 02/26/22 11:41 Ur Squamous Epith Cells None /hpf (0-5) 02/26/22 11:41 Amorphous Sediment Not Reportable 02/26/22 11:41 Urine Bacteria Trace /hpf (NONE) 02/26/22 11:41 Echo: My impression: On 02/18/2022 Normal LV size with a borderline low ejection fraction of around ?50%.? Mild diffuse hypokinesia of the septum. ?Segmental wall motion analysis difficult because of the poor ?apical window. ?Mildly increased left atrial size. ?Thickened aortic valve with a features of aortic valve ?sclerosis. ?There is no pericardial effusion. ?Technically difficult study A&P Assessment and plan (1) Third degree heart block: Patient has intermittent high degree AV block and intermittent atrial fibrillation with rapid ventricular rate. For further management of his condition, he requires a permanent pacemaker [place]. The risk of bleeding, hematoma, vascular injury, pneumothorax, infection, renal failure and other concomitant complications were explained in detail. The patient [] understood this well and consented to proceed. We will go ahead and make the arrangements to have it done today. Patient is left-handed. So we will try the implantation through the right subclavian vein. (2) Hypertension: Blood pressures are stage II. We will try to optimize his antihypertensive medications. (3) Chronic back pain: Patient is on pain medication, which may be continued. (4) Dyslipidemia: May continue on the current medications. (5) Aortic valve sclerosis: No specific symptoms pertaining to this at this point. (6) Hypokalemia: The potassium need to be supplemented. Plan We will go ahead and schedule for the permanent pacemaker implantation for this afternoon. Patient will be kept NPO. Consult Attestations Medical Necessity Statement: Patient requires continued hospital stay for close monitoring and further management Coding Level of Care Code Acute Chiropractic Neurologist for g Fwd History Expanded Problem Focused Exam Expanded Problem Focused Medical Decision Making Moderate Complexity Diagnoses Third degree heart block I44.2 Hypertension I10 Chronic back pain M54.9; G89.29 Dyslipidemia E78.5 Aortic valve sclerosis I35.8 Hypokalemia E87.6
[2022-02-27] MEDS: lidocaine 1% 5 ML in potassium chloride premix 100 ML 25 ML IV (08:25)
[2022-02-27] MEDS: HYDROcodone-acetaminophen 10-325 mg Tablet 1 TAB PO ×3 (08:28→20:28)
[2022-02-27] MEDS: chlorthalidone 25 mg Tablet PO (08:40)
[2022-02-27] MEDS: sertraline 100 mg Tablet PO (08:40)
[2022-02-27] MEDS: losartan 50 mg Tablet 100 MG PO (08:41)
[2022-02-27] MEDS: pantoprazole DR 40 mg Tablet PO (08:42)
[2022-02-27] MEDS: amlodipine 10 mg Tablet PO (08:42)
[2022-02-27] MEDS: potassium chloride ER 20 mEq Tablet PO (10:55)
--- NOTE | 2022-02-27 11:11 | PC.CHAP ---
Pastoral Care Encounter/Spiritual Assessment Type of Contact [] Declined bus attendant visit [] Patient/Family/Request visit [] Outpatient visit [] Follow-up visit [] Physician referral [] Code/Alert [x] Routine visit [] Staff referral [] Actively dying [] Patient sleeping [] Family support [] [] Out of room [] Palliative care [] [x] Receiving care in room [] Pre-surgical visit [] Trauma [] Long length of stay [] ICU visit [] Other: Relational/Emotional Strength [] Patient feels connected with others/family/visitors/staff [] Distress [] Loneliness/isolation [] Abandonment Spirituality of Patient [] Person of [place] [] Attends Latter-Day of their [place] [] Believes in Prayer [] Reads Bible or Judaism materials [] There are Spiritual issues to be addressed Information Technology Project Manager Interventions [] Prayer [] Active listening [] Non-anxious presence [] Spiritual/emotional support [] Crisis/trauma care [] Spiritual counseling [] Bereavement support [] Provided bereavement packet [] Provided Bible/devotional materials [] Provided toy/stuffed animal, coloring book to patient or family member [] Provided Communion [] Anointing/[place] [] Salvation [] Completed spiritual assessment [] Other: Impact on Illness or Injury [] Angry [] Fearful [] Anxious [] Often cries [] Exhaustion [] Unable to work [] Unable to attend mu-ism [] Unable to walk/stand [] Unable to read [] Unable to drive [] Unable to eat/drink [] Unable to sleep [] Unable to be with family [] Patient intubated [] Other: Summary Time spent with patient
[2022-02-27 11:31] LABS: Glucose Point of Care 150 mg/dL (70-110)
[2022-02-27] MEDS: insulin lispro 100 unit/1 mL SUBCUT ×2 (12:12→21:24)
--- NOTE | 2022-02-27 14:45 | P.PN_ITS ---
Subjective Subjective: Patient was seen this morning, he is awaiting his pacemaker placement, he tells me that its the metoprolol that caused all this, [facility], and it caused him to feel lightheaded and dizzy currently he is asymptomatic Vitals/I&O/Wt Last Vital Signs Temp 98.2 F 02/27/22 11:21 Pulse 72 02/27/22 11:21 Resp 20 H 02/27/22 11:21 BP 130/72 02/27/22 11:21 Pulse Ox 92 02/27/22 11:21 O2 Del Method 02/27/22 11:21 02/26/22 02/27/22 02/27/22 22:59 06:59 14:59 Intake Total 480 / 480 240 / 720 105 / 105 Output Total 50 / 50 300 / 350 Balance 430 / 430 -60 / 370 105 / 105 Weight last 48 hrs Weight 113.398 kg Weight 113.398 kg Physical Exam Const: COMMON NORMALS: no acute distress and patient oriented x3 Resp: COMMON NORMALS: normal respiratory effort, No retractions, No use of accessory muscles and clear to auscultation bilaterally AUSCULTATION: clear to auscultation bilaterally Cardio: COMMON NORMALS: regular rhythm, S1 normal heart sound present and S2 normal heart sound present RATE: bradycardic RHYTHM: regular rhythm HEART SOUNDS: S1 normal heart sound present and S2 normal heart sound present GI: COMMON NORMALS: Normal to inspection, nondistended, normoactive bowel sounds present and non-tender Extremity: COMMON NORMALS: no pedal edema Neuro: COMMON NORMALS: patient oriented x3 Psych: COMMON NORMALS: mental status grossly normal Urinary Catheter Management: Coude: Cath Placed During This Visit: yes Reason for Continuing Indwelling Catheter: Acute Urinary Retention or Obstruction Urinary Catheter Date of Insertion: 02/26/22 Urinary Catheter Time of Insertion: 22:00 Data : 02/27/22 02:48 02/27/22 02:48 A&P Assessment and plan (1) Third degree heart block: Patient has intermittent high degree AV block and intermittent atrial fibrillation with rapid ventricular rate. -We will proceed with pacemaker placement (2) Hypertension: Continue to monitor blood pressure (3) Chronic back pain: Continue pain medication (4) Dyslipidemia: May continue on the current medications. (5) Aortic valve sclerosis: No specific symptoms pertaining to this at this point. (6) Hypokalemia: Will replace potassium and magnesium Plan Fatigue, malaise, likely secondary to bradycardia third-degree AV block Lightheadedness, likely secondary third-degree AV block Hyperglycemia, undiagnosed type 2 diabetes mellitus, low-dose sliding scale, A1c 6.3 Patient has not started Eliquis, will resume once prudent Attestations Medical Necessity Statement*: Patient proceeding with pacemaker placement Coding Level of Care Code Acute Rotating Equipment Engineer for Lalo Jackson Diagnoses Third degree heart block I44.2 Hypertension I10 Chronic back pain M54.9; G89.29 Dyslipidemia E78.5 Aortic valve sclerosis I35.8 Hypokalemia E87.6
--- NOTE | 2022-02-27 16:15 | W.PM.OPSUD ---
Surgery/Procedure H&P Update DATE OF PROCEDURE: February 27, 2022 DATE H&P PERFORMED: 02/27/22 H&P UPDATE INFORMATION: I have reviewed H&P completed within last 30 days, I have examined patient prior to procedure and No changes to prior documentation PREOP DIAGNOSIS: symptomatic bradycardia/ AFIB/ high dereee AV block PRIMARY INDICATION FOR PROCEDURE: symptomatic bradycardia PLANNED PROCEDURE: dual chamber PPM PATIENT REASSESSED PRIOR TO SEDATION, WITH NO CHANGE NOTED: Yes PHYSICAL EXAM: alert, oriented x 3, clear to auscultation bilaterally and regular rate & rhythm (irregular rhythm) AIRWAY EVAL/ANESTHESIA PLAN: normal airway, see other exam findings, ASA III, Monitored Anesthesia, Local Anesthesia, Risks, benefits & alternatives of sedation and/or procedure discussed and Patient agrees to continue as planned
[2022-02-27 16:33] LABS: Glucose Point of Care 122 mg/dL (70-110)
--- NOTE | 2022-02-27 16:46 | PC.NURSE ---
Mr Yan left the floor at 1630 via bed to surgery to have pacemaker placed.
--- NOTE | 2022-02-27 19:22 | P.OP_ITS ---
Operative Report Date of procedure: February 27, 2022 Pre-op diagnosis: Preop Diagnosis symptomatic bradycardia/ AFIB/ high dereee AV block Procedure: LOCATION: Cardiac catheterization lab PREOPERATIVE DIAGNOSES: Symptomatic bradycardia/high degree AV block/intermittent atrial fibrillation. POSTOPERATIVE DIAGNOSES: Same. COMPLICATIONS: None. ESTIMATED BLOOD LOSS: None BRIEF HISTORY: 76-year-old white male with a history of hypertension, dyslipidemia, COPD and atrial fibrillation presented with intermittent episodes of third-degree heart blocks, atrial fibrillation and symptomatic bradycardia. Further details of the history and physical, please refer to the consultation history and physical by me on 02/27/2022 A dual chamber permanent pacemaker implantation was recommended for AV synchrony and symptom relief The procedure was explained to the patient in detail with the risks and benefits. The risks of bleeding, hematoma, vascular injury, infection, pneumothorax, myocardial perforation and other concomitant complications were explained in detail, which the patient understood well and consented to proceed. PROCEDURE DESCRIPTION: The patient was brought to the Cardiac Catheterization Lab. The left and the right side of the neck and the subclavian area were cleaned and draped in a sterile fashion. 1% Xylocaine was used as the local anesthetic agent. Right subclavian venogram was performed by injecting 20 milliliters of Omnipaque through the left antecubital vein. A right subclavian venous access was obtained using a micropuncture needle system, under venographic guidance. . A two-inch long incision was made 2.0 centimeters below the midclavicular region. By sharp and blunt dissection, a pacemaker pocket was made. A second venous access was obtained using another micropuncture needle system. Over the first guidewire, a 7-Iranian venous sheath with dilator was advanced. The venous dilator and the guidewire were taken out. A screw-in ventricular lead was advanced through the venous sheath and was positioned towards the right ventricle. Under fluoroscopic guidance, the ventricular lead was positioned toward the right ventricular apex. Good pacing and sensing thresholds were obtained. The lead was secured to the endocardium by advancing the helix. The stability of the lead was tested by gentle twisting movements and also by asking the patient to take some deep breaths and cough. The venous sheath was peeled off, at this time. The lead was secured to the pectoralis fascia, by suturing with 1-0 Surgilon. Over the second guidewire, another 7- [place] venous sheath with dilator was advanced. The dilator and the guidewire were taken out. Under fluoroscopic guidance, an atrial lead (Medtronic), was advanced and positioned toward the right atrium. The lead was positioned in the right atrial appendage. Good pacing and sensing thresholds were obtained. The lead was secured to the endocardium by advancing the helix. Stability of the lead was tested by gentle twisting movements and also by asking the patient to take some deep breaths and cough. The venous sheath was peeled off, at this time. The lead was secured to the pectoralis fascia by suturing with 0-Surgilon. The pacemaker pocket was copiously irrigated with vancomycin solution. Complete hemostasis was achieved. Sponge counts were confirmed. The leads were attached to a Medtronic generator. The leads were positioned behind the generator and the generator was attached to the pectoralis fascia by suturing with 0-Surgilon. The pocket was closed in layers. Skin was approximated using 4-0 Vicryl. IMPLANTED DEVICES: ATRIAL LEAD: Model number: 5076/45 Serial number: [id number] Make: Medtronic VENTRICULAR LEAD: Model number: 5076/52 Serial number: [id number] Make: Medtronic GENERATOR Brand: [place] XR DR MRI Asiya Model number: [id number] Serial number: [id number] Make: Medtronic IMPLANTATION DATA: With the pacing system analyzer, the R wave sensing was 11.2 millivolts with a lead impedance of 810 and a pacing threshold was 1.0 volts at 0.5 milliseconds. In the atrium, the sensing was 2.2 millivolts with a lead impedance of 678 ohms and a pacing threshold was 1.2 volts at 0.5 milliseconds. Through the device, the R-wave sensing was 14.4 millivolts with a lead impedance of 798 and a pacing threshold was 0.75 volts at 0.4 milliseconds. The atrial sensing was 3.8 millivolts with a lead impedance of 551 ohms and a pacing threshold of 1.25 volts at 0.4 milliseconds. The pacemaker was set for DDDR mode with upper rate of 130 and a lower rate of 60. A pressure dressing was applied over the pacemaker site. The patient was transferred to the Medical Floor in stable condition. A chest x-ray was ordered to confirm the lead position and also to rule out any pneumothorax.
[2022-02-27 19:23] LABS: Glucose Point of Care 123 mg/dL (70-110)
[2022-02-27] MEDS: ceFAZolin 2,000 MG in sodium chloride 0.9% (plus) 50 ML 100 MG IV (19:29)
[2022-02-27] MEDS: atorvastatin 40 mg Tablet 20 MG PO (20:27)
[2022-02-27 20:49] LABS: Glucose Point of Care 169 mg/dL (70-110)
[2022-02-27] MEDS: ALPRAZolam 0.5 mg Tablet 0.25 MG PO (21:23)
[2022-02-27] MEDS: enoxaparin 100 mg/mL Syringe SUBCUT (21:24)
[2022-02-28] VITALS (9 sets, daily range): BP systolic 124–146; BP diastolic 57–83; PULSE 68–104; RESP 15–22; TEMP 36.3–36.7; O2SAT 91–95
[2022-02-28] MEDS: HYDROcodone-acetaminophen 10-325 mg Tablet 1 TAB PO ×3 (02:08→15:48)
[2022-02-28] MEDS: ceFAZolin 2,000 MG in sodium chloride 0.9% (plus) 50 ML 100 MG IV ×2 (02:09→10:45)
[2022-02-28 02:59] LABS: Basophils # 0.1 10^3/uL (0.0-0.1); Basophils % 0.6 %; Eosinophils # 0.2 10^3/uL (0.0-0.8); Hematocrit 43.3 % (42.0-52.0); Hemoglobin 14.4 g/dL (11.7-16.6); Lymphocytes # 1.6 10^3/uL (0.8-4.8); Lymphocytes % 20.2 %; Mean Corpuscular HGB Conc 33.3 g/dL (30.0-36.0); Mean Corpuscular Hemoglobin 33.5 pg (28.0-34.0); Mean Corpuscular Volume 100.7 fl (80-94); Mean Platelet Volume 11.1 fL (7.4-10.4); Monocytes # 0.5 10^3/uL (0.2-0.9); Monocytes % 6.8 %; Neutrophils # 5.54 10^3/uL (1.8-7.7); Neutrophils % 70.1 %; Nucleated Red Blood Cells % 0 %; Platelet Count 202 10^3/cmm (130-400); Red Cell Distribution Width 13.2 % (12.1-15.1); White Blood Count 7.9 10^3/uL (4.0-10.0)
[2022-02-28 03:29] LABS: Alanine Aminotransferase 24 U/L (0-41); Albumin Level 3.4 g/dL (3.5-5.2); Alkaline Phosphatase 91 U/L (40-130); Anion Gap 16.4 (5-19); Aspartate Amino Transferase 16 U/L (0-40); Blood Urea Nitrogen 17 mg/dL (8-23); Carbon Dioxide 26 mmol/L (22-29); Chloride 99 mmol/L (98-107); Creatinine Clr Calc Pharmacy 102.1616; Globulin 2.9 g/dL (1.3-4.6); Glucose 173 mg/dL (65-115); Magnesium 1.7 mg/dL (1.7-2.3); Osmolality Calculated 292 mOsm/kg (285-295); Phosphorus 3.3 mg/dL (2.5-4.5); Potassium 3.4 mmol/L (3.5-5.1); Sodium 138 mmol/L (136-145); Total Bilirubin 0.3 mg/dL (0.15-1.2); Total Protein 6.3 g/dL (6.6-8.7)
--- NOTE | 2022-02-28 04:32 | ECG_ITS ---
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 Measurements Intervals [place] Rate: 68 P: 2 [place]: 195 QRS: -73 QRSD: 198 T: 90 QT: 517 QTc: 551 Interpretive Statements ELECTRONIC VENTRICULAR PACEMAKER AV paced rhythm ABNORMAL RHYTHM ECG Compared to ECG 02/26/2022 17:10:56 Atrial fibrillation no longer present Left bundle-branch block no longer present Electronically Signed On 02-28-2022 20:58:39 CDT by Lisset Dueñas M.D. [id number]
[2022-02-28 06:18] LABS: Glucose Point of Care 132 mg/dL (70-110)
--- NOTE | 2022-02-28 08:11 | PM.PN ---
Subjective Subjective: Patient had the permanent dual-chamber pacemaker plantation yesterday. He is currently doing well. The pacemaker site has no hematoma bleeding. Pacemaker was interrogated this morning. Medications: Medication Review Details: Current Medications Acetaminophen (Acetaminophen 325 Mg Tablet) 650 mg PO Q6H PRN PRN Reason: Mild/Mod Pain Or Temp >/= 101 Hydrocodone Bitart/Acetaminophen (Hydrocodone-Acetaminophen 10-325 Mg Tablet) 1 tab PO Q4H PRN PRN Reason: MODERATE TO SEVERE PAIN Last Admin: 02/28/22 02:08 Dose: 1 tab Albuterol Sulfate (Albuterol 8 Gm Mdi) 2 puff INHALATION QID PRN PRN Reason: Shortness Of Breath Amlodipine Besylate (Amlodipine 10 Mg Tablet) 10 mg PO DAILY [facility] Last Admin: 02/27/22 08:42 Dose: 10 mg Atorvastatin Calcium (Atorvastatin 40 Mg Tablet) 20 mg PO BEDTIME [facility] Last Admin: 02/27/22 20:27 Dose: 20 mg Calcium Polycarbophil (Calcium Polycarbophil 625 Mg Tablet) 1,875 mg PO BID [facility] Last Admin: 02/27/22 18:00 Dose: Not Given Cetirizine HCl (Cetirizine 10 Mg Tablet) 10 mg PO DAILY PRN PRN Reason: ALLERGIES Chlorthalidone (Chlorthalidone 25 Mg Tablet) 25 mg PO DAILY [facility] Last Admin: 02/27/22 08:40 Dose: 25 mg Dextrose (Dextrose 50% Syringe 50 Ml) 25 ml IVP ONCE PRN; Protocol PRN Reason: hypoglycemia protocol Dextrose (Dextrose 50% Syringe 50 Ml) 50 ml IVP PRN PRN; Protocol PRN Reason: hypoglycemia protocol Enoxaparin Sodium (Enoxaparin 100 Mg/Ml Syringe) 100 mg SUBCUT Q12H [facility] Last Admin: 02/27/22 21:24 Dose: 100 mg Glucagon (Glucagon 1 Mg/Ml Inj 1 Ml) 1 mg IM ONCE PRN; Protocol PRN Reason: Adult Acute Hypoglycemia Prot. Dextrose (D5w) 500 mls @ 100 mls/hr IV ONCE PRN; Protocol PRN Reason: Adult Acute Hypoglycemia Prot Cefazolin Sodium 2,000 mg/ (Sodium Chloride) 50 mls @ 100 mls/hr IV Q8H [facility]; Protocol Stop: 02/28/22 11:29 Last Infusion: 02/28/22 02:39 Dose: Infused Insulin Human Lispro (Insulin Lispro 100 Unit/1 Ml) 0 unit SUBCUT BEDTIME [facility]; Protocol Last Admin: 02/27/22 21:24 Dose: 1 unit Insulin Human Lispro (Insulin Lispro 100 Unit/1 Ml) 0 unit SUBCUT TIDWM [facility]; Protocol Last Admin: 02/27/22 19:27 Dose: Not Given Losartan Potassium (Losartan 50 Mg Tablet) 50 mg PO DAILY [facility] Last Admin: 02/27/22 08:43 Dose: Not Given Multivitamins/Minerals (Multivitamin W/Minerals Tablet) 1 tab PO DAILY [facility] Last Admin: 02/27/22 08:58 Dose: Not Given Scnxf-1-Dmwx Ethyl Esters (Drumright-3 Fatty Acids 1,000 Mg Capsule) 1,000 mg PO BID [facility] Last Admin: 02/27/22 19:27 Dose: Not Given Ondansetron HCl (Ondansetron 2 Mg/Ml Sdv 2 Ml) 4 mg IVP Q8H PRN PRN Reason: vomiting, or N/V if npo Pantoprazole Sodium (Pantoprazole Dr 40 Mg Tablet) 40 mg PO DAILY [facility] Last Admin: 02/27/22 08:42 Dose: 40 mg Fluticasone/Salmeterol (Fluticasone-Salmeterol 250-50 Diskus) 1 puff INHALATION BID.RESPIRATORY [facility] Last Admin: 02/28/22 07:16 Dose: 1 puff Sertraline HCl (Sertraline 100 Mg Tablet) 100 mg PO DAILY [facility] Last Admin: 02/27/22 08:40 Dose: 100 mg Vitals/I&O/Wt Last Vital Signs Temp 97.9 F 02/28/22 07:54 Pulse 90 02/28/22 07:54 Resp 17 02/28/22 07:54 BP 134/72 02/28/22 07:54 Pulse Ox 93 02/28/22 07:54 O2 Del Method 02/28/22 07:54 02/27/22 02/28/22 02/28/22 22:59 06:59 14:59 Intake Total 290 / 395 50 / 445 Output Total 650 / 650 250 / 900 Balance -360 / -255 -200 / -455 Weight last 48 hrs Weight 250 lb Weight 250 lb Physical Exam Narrative: GENERAL: The patient is alert and oriented times three. Not in any acute distress. Moderately obese HEENT: No significant pallor, icterus or lymphadenopathy.Oral cavity: There are no mucous membrane lesions. NECK: Trachea appears to be central. No masses noted. No JVD or thyromegaly appreciated. RESPIRATORY: Chest is symmetrical. No intercostals muscle retraction or any accessory muscle activation. There is no chest wall tenderness. Breath sounds are heard bilaterally. No rales or rhonchi heard. No evidence of any consolidation. We will pacemaker site has no hematoma bleeding. BREASTS: Deferred. HEART: The heart sounds are normal. No S3 or S4. Ejection systolic murmur grade 3 or 6 in the aortic area. No diastolic murmurs. No pericardial rub ABDOMEN: No vessel pulsations or distention. No tenderness. No organomegaly appreciated. Bowel sounds are normally heard. : Deferred. RECTAL: Deferred. LYMPHATIC: No lymphadenopathy noted in the neck. EXTREMITIES: No edema or cyanosis. No clubbing. MUSCULOSKELETAL: No acute joint deformities or swelling SKIN: There are no significant rashes or ecchymosis NEUROPSYCHIATRIC: The patient is alert and oriented x3. Appears to be in a good mood. No tremors or rigidity noted. Urinary Catheter Management: Coude: Cath Placed During This Visit: yes Reason for Continuing Indwelling Catheter: Acute Urinary Retention or Obstruction Urinary Catheter Date of Insertion: 02/26/22 Urinary Catheter Time of Insertion: 22:00 Data : 02/28/22 02:36 02/28/22 02:36 Other Labs: Laboratory Last Values WBC 7.9 10^3/uL (4.0-10.0) 02/28/22 02:36 RBC 4.30 10^6/uL (4.1-5.3) 02/28/22 02:36 Hgb 14.4 g/dL (11.7-16.6) 02/28/22 02:36 Hct 43.3 % (42.0-52.0) 02/28/22 02:36 MCV 100.7 fl (80-94) H 02/28/22 02:36 MCH 33.5 pg (28.0-34.0) 02/28/22 02:36 MCHC 33.3 g/dL (30.0-36.0) 02/28/22 02:36 RDW 13.2 % (12.1-15.1) 02/28/22 02:36 Plt Count 202 10^3/cmm (130-400) 02/28/22 02:36 MPV 11.1 fL (7.4-10.4) H 02/28/22 02:36 Neut % (Auto) 70.1 % 02/28/22 02:36 Lymph % (Auto) 20.2 % 02/28/22 02:36 [place] % (Auto) 6.8 % 02/28/22 02:36 Eos % (Auto) 2.0 % 02/28/22 02:36 Baso % (Auto) 0.6 % 02/28/22 02:36 Neut # (Auto) 5.54 10^3/uL (1.8-7.7) 02/28/22 02:36 Lymph # (Auto) 1.6 10^3/uL (0.8-4.8) 02/28/22 02:36 [place] # (Auto) 0.5 10^3/uL (0.2-0.9) 02/28/22 02:36 Eos # (Auto) 0.2 10^3/uL (0.0-0.8) 02/28/22 02:36 Baso # (Auto) 0.1 10^3/uL (0.0-0.1) 02/28/22 02:36 Nucleated RBC % (auto) 0 % 02/28/22 02:36 Nucleated RBCs # 0.0 /100WBC 02/28/22 02:36 PT 15.30 SECONDS (12.1-14.9) H 02/27/22 02:48 INR 1.17 (0.8-1.2) 02/27/22 02:48 APTT 34.0 SECONDS (23.9-36.7) 02/27/22 02:48 Sodium 138 mmol/L (136-145) 02/28/22 02:36 Potassium 3.4 mmol/L (3.5-5.1) L 02/28/22 02:36 Chloride 99 mmol/L (98-107) 02/28/22 02:36 Carbon Dioxide 26 mmol/L (22-29) 02/28/22 02:36 Anion Gap 16.4 (5-19) 02/28/22 02:36 BUN 17 mg/dL (8-23) 02/28/22 02:36 Creatinine 0.8 mg/dL (0.7-1.2) 02/28/22 02:36 GFR Calculation Not Reportable 02/28/22 02:36 Glucose 173 mg/dL (65-115) H 02/28/22 02:36 POC Glucose 132 mg/dL (70-110) H 02/28/22 06:02 Estimat Average Glucose 134 02/27/22 02:48 Hemoglobin A1c 6.3 % (4.0-6.0) H 02/27/22 02:48 Calculated Osmolality 292 mOsm/kg (285-295) 02/28/22 02:36 Calcium 9.0 mg/dL (8.5-10.5) 02/28/22 02:36 Phosphorus 3.3 mg/dL (2.5-4.5) 02/28/22 02:36 Magnesium 1.7 mg/dL (1.7-2.3) 02/28/22 02:36 Total Bilirubin 0.3 mg/dL (0.15-1.2) 02/28/22 02:36 AST 16 U/L (0-40) 02/28/22 02:36 ALT 24 U/L (0-41) 02/28/22 02:36 Alkaline Phosphatase 91 U/L (40-130) 02/28/22 02:36 Troponin T Baseline 11 ng/L (0-15) 02/26/22 11:17 Troponin T 120 Minute 10.58 ng/L (0-15) 02/26/22 13:12 Delta Troponin T 0.42 ABS# (0-10) 02/26/22 13:12 Troponin T Hi Sens 6Hr 8.45 ng/L (0-15) 02/26/22 18:34 Troponin T Hi Sens 6Hr Delta -2.55 ng/L (0-12) L 02/26/22 18:34 Total Protein 6.3 g/dL (6.6-8.7) L 02/28/22 02:36 Albumin 3.4 g/dL (3.5-5.2) L 02/28/22 02:36 Globulin 2.9 g/dL (1.3-4.6) 02/28/22 02:36 Urine Color Yellow (Yellow) 02/26/22 11:41 Urine Appearance Clear (CLEAR) 02/26/22 11:41 Urine pH 5.5 (5-7) 02/26/22 11:41 Ur Specific [place] 1.020 (1.005-1.030) 02/26/22 11:41 Urine Protein Negative (Negative) 02/26/22 11:41 Urine Glucose (UA) Negative (Normal) 02/26/22 11:41 Urine Ketones Negative (Negative) 02/26/22 11:41 Urine Blood Small (Negative) A 02/26/22 11:41 Urine Nitrate Negative 02/26/22 11:41 Urine Bilirubin Negative (Negative) 02/26/22 11:41 Urine Urobilinogen 0.2 mg/dL (Negative) 02/26/22 11:41 Ur Leukocyte Esterase Negative (Negative) 02/26/22 11:41 Urine RBC Rare /hpf (0-2) 02/26/22 11:41 Urine WBC 5-10 /hpf (0-5) H 02/26/22 11:41 Ur Squamous Epith Cells None /hpf (0-5) 02/26/22 11:41 Amorphous Sediment Not Reportable 02/26/22 11:41 Urine Bacteria Trace /hpf (NONE) 02/26/22 11:41 EKG 2: My Interpretation: The EKG from today shows 100% A sensed, V paced rhythm EKG computer-generated impression: Chest X-Ray 02/26/22 10:48 IMPRESSION: No acute chest abnormality identified. The chest is unchanged, except for the Biomed, device compared to 02/18/2022. A&P Assessment and plan (1) Presence of permanent cardiac pacemaker: Patient had the permanent dual-chamber pacemaker implantation yesterday. Telemetry shows 100% AV paced rhythm. No hematoma bleeding at the pacemaker insertion. We will continue the IV antibiotics as scheduled. Pacemaker was interrogated this morning. The results are pending. (2) Hypertension: . Blood pressure is getting under control. We will continue the current medication. (3) Chronic back pain: Patient is on pain medication, which may be continued. (4) Dyslipidemia: May continue on the current medications. (5) Aortic valve sclerosis: No specific symptoms pertaining to this at this point. (6) Hypokalemia: The potassium level is improving. Still has some hypokalemia. Continue the supplementation. (7) Type 2 diabetes mellitus: Management as per the primary Plan Chest x-ray this morning. Continue on the current management. Patient should be able to go home this afternoon, once the IV antibiotic doses are finished. Pacemaker instructions are given The chest x-ray was reviewed. No pneumothorax. The lead positions are appropriate. Attestations Medical Necessity Statement*: Possible discharge home today Coding Level of Care Code Acute Top Flavor Attendant for Chg Fwd History Expanded Problem Focused Exam Expanded Problem Focused Medical Decision Making Moderate Complexity Diagnoses Presence of permanent cardiac pacemaker Z95.0 Hypertension I10 Chronic back pain M54.9; G89.29 Dyslipidemia E78.5 Aortic valve sclerosis I35.8 Hypokalemia E87.6 Type 2 diabetes mellitus E11.9
--- NOTE | 2022-02-28 08:12 | XR_ITS ---
WS: [id number] XR chest 1V portable [id number] REASON FOR EXAM: Post pacemaker FINDINGS: Cardiac device in place over the right chest with leads to the right subclavian vein to the right atr ium and right ventricular apex. There is no pneumothorax. Minimal atelectasis in the right lower lung. Lung are otherwise clear and were well-aerated. XR/XR chest 1V portable [id number] IMPRESSION: Post cardiac device placement without abnormality.
[2022-02-28] MEDS: pantoprazole DR 40 mg Tablet PO (08:37)
[2022-02-28] MEDS: sertraline 100 mg Tablet PO (08:37)
[2022-02-28] MEDS: omega-3 fatty acids 1,000 mg Capsule 1000 MG PO (08:37)
[2022-02-28] MEDS: losartan 50 mg Tablet PO (08:38)
[2022-02-28] MEDS: amlodipine 10 mg Tablet PO (08:38)
[2022-02-28] MEDS: chlorthalidone 25 mg Tablet PO (08:40)
[2022-02-28] MEDS: potassium chloride ER 20 mEq Tablet PO (08:46)
--- NOTE | 2022-02-28 09:42 | PC.CHAP ---
Pastoral Care Encounter/Spiritual Assessment Type of Contact [] Declined road maker visit [] Patient/Family/Request visit [] Outpatient visit [] Follow-up visit [] Physician referral [] Code/Alert [x] Routine visit [] Staff referral [] Actively dying [] Patient sleeping [] Family support [] [] Out of room [] Palliative care [] [] Receiving care in room [] Pre-surgical visit [] Trauma [] Long length of stay [] ICU visit [] Other: Relational/Emotional Strength [x] Patient feels connected with others/family/visitors/staff [] Distress [] Loneliness/isolation [] Abandonment Spirituality of Patient [x] Person of [place] [] Attends Temple of their [place] [] Believes in Prayer [] Reads Bible or Islam materials [x] There are Spiritual issues to be addressed Cargo Checker Interventions [] Prayer [x] Active listening [x] Non-anxious presence [x] Spiritual/emotional support [] Crisis/trauma care [] Spiritual counseling [] Bereavement support [] Provided bereavement packet [] Provided Bible/devotional materials [] Provided toy/stuffed animal, coloring book to patient or family member [] Provided Communion [] Anointing/[place] [] Salvation [x] Completed spiritual assessment [] Other: Impact on Illness or Injury [] Angry [] Fearful [] Anxious [] Often cries [] Exhaustion [] Unable to work [] Unable to attend confucianism [] Unable to walk/stand [] Unable to read [] Unable to drive [] Unable to eat/drink [] Unable to sleep [] Unable to be with family [] Patient intubated [] Other: Summary Pt had pace maker placed in and will need some help when he returns home. His sister lives next door but she is unable to assist with his care. Cargo Checker asked if he had spoken with a director social welfare and he said he has and they are still working on things but not sure he will be able to get assistance. When asked if he is a person of alisia, he responded he believes in Alien gods. When asked to explain, he said there are ancient structures which people at that time could not have built on their own. Someone or something had to help. He does not believe in a big god up there pulling the strings of humanity. Time spent with patient 15m
[2022-02-28 11:32] LABS: Glucose Point of Care 223 mg/dL (70-110)
[2022-02-28] MEDS: insulin lispro 100 unit/1 mL SUBCUT (12:39)
--- NOTE | 2022-02-28 13:09 | P.DS_ITS ---
Discharge Providers Date of Admission: 02/26/22 13:14 Date of Discharge: February 28, 2022 Attending Provider at Admission: Lily Sanchez MD Attending Provider at Discharge: Leonardo Hyde MD Primary Care Provider: Tatiana Thomson MD Diagnoses at Discharge Discharge Diagnosis (1) Presence of permanent cardiac pacemaker: Status: Acute (2) Hypertension: Status: Chronic (3) Chronic back pain: Status: Chronic (4) Dyslipidemia: Status: Chronic (5) Aortic valve sclerosis: Status: Chronic (6) Hypokalemia: Status: Acute Reason for Visit Reason for Visit: Dizzy/SOB Hospital Course Hospital Course Melvin Yan is a 76 year old male who presented from cardiology clinic with complaint of not feeling right.? It was relayed to emergency provider as dizziness. patient was admitted for third degree av block, potentially secondary to metoprolol, intermittent high degree AV block and intermittent atrial fibrillation with rapid ventricular rate, s/p pacemaker palcement, tolerated procedure well, d/c home for atrial fibrillation, start eliquis tomorrow for patient his type 2 diabetes, hgba1c 6.3, had elevated blood sugars as inpatient requiring insulin, have instructed patient to check blood sugars three times daily, monitor blood sugars, follow up with primary care, nonetheless i have discharged him on metformin once daily, Physical Exam Const: COMMON NORMALS: no acute distress and patient oriented x3 Chest: OTHER: surgival site is clean and dry Resp: COMMON NORMALS: normal respiratory effort, No retractions, No use of accessory muscles and clear to auscultation bilaterally AUSCULTATION: clear to auscultation bilaterally Cardio: COMMON NORMALS: regular rate, regular rhythm, S1 normal heart sound present and S2 normal heart sound present RATE: regular rate RHYTHM: regular rhythm HEART SOUNDS: S1 normal heart sound present and S2 normal heart sound present GI: COMMON NORMALS: Normal to inspection, nondistended, normoactive bowel sounds present, non-tender and no masses Extremity: COMMON NORMALS: no pedal edema Neuro: COMMON NORMALS: patient oriented x3 Psych: COMMON NORMALS: mental status grossly normal Urinary Catheter Management: Coude: Cath Placed During This Visit: yes Reason for Continuing Indwelling Catheter: Acute Urinary Retention or Obstruction Urinary Catheter Date of Insertion: 02/26/22 Urinary Catheter Time of Insertion: 22:00 Discharge Data Studies Completed and Pending Completed Studies During Hospitalization Category Date Time Status MANAGER REPORT request for service Routine Exams 02/27/22 08:29 Completed CXRP [XR chest 1V portable [id number]] Routine Exams 02/28/22 08:12 Completed XR chest 1V portable [id number] Stat Exams 02/26/22 10:48 Completed Pending at discharge Category Date Time Status Complete Blood Count w/Auto AM LABS Lab 03/01/22 04:00 Ordered Complete Blood Count w/Auto AM LABS Lab 03/02/22 04:00 Ordered Comprehensive Metabolic Panel AM LABS Lab 03/01/22 04:00 Ordered Comprehensive Metabolic Panel AM LABS Lab 03/02/22 04:00 Ordered Magnesium AM LABS Lab 03/01/22 04:00 Ordered Magnesium AM LABS Lab 03/02/22 04:00 Ordered Phosphorus AM LABS Lab 03/01/22 04:00 Ordered Phosphorus AM LABS Lab 03/02/22 04:00 Ordered Radiology Impressions Chest X-Ray 02/28/22 08:12 IMPRESSION: Post cardiac device placement without abnormality. Laboratory Results WBC 7.9 10^3/uL (4.0-10.0) 02/28/22 02:36 RBC 4.30 10^6/uL (4.1-5.3) 02/28/22 02:36 Hgb 14.4 g/dL (11.7-16.6) 02/28/22 02:36 Hct 43.3 % (42.0-52.0) 02/28/22 02:36 MCV 100.7 fl (80-94) H 02/28/22 02:36 MCH 33.5 pg (28.0-34.0) 02/28/22 02:36 MCHC 33.3 g/dL (30.0-36.0) 02/28/22 02:36 RDW 13.2 % (12.1-15.1) 02/28/22 02:36 Plt Count 202 10^3/cmm (130-400) 02/28/22 02:36 MPV 11.1 fL (7.4-10.4) H 02/28/22 02:36 Neut % (Auto) 70.1 % 02/28/22 02:36 Lymph % (Auto) 20.2 % 02/28/22 02:36 [place] % (Auto) 6.8 % 02/28/22 02:36 Eos % (Auto) 2.0 % 02/28/22 02:36 Baso % (Auto) 0.6 % 02/28/22 02:36 Neut # (Auto) 5.54 10^3/uL (1.8-7.7) 02/28/22 02:36 Lymph # (Auto) 1.6 10^3/uL (0.8-4.8) 02/28/22 02:36 [place] # (Auto) 0.5 10^3/uL (0.2-0.9) 02/28/22 02:36 Eos # (Auto) 0.2 10^3/uL (0.0-0.8) 02/28/22 02:36 Baso # (Auto) 0.1 10^3/uL (0.0-0.1) 02/28/22 02:36 Nucleated RBC % (auto) 0 % 02/28/22 02:36 Nucleated RBCs # 0.0 /100WBC 02/28/22 02:36 PT 15.30 SECONDS (12.1-14.9) H 02/27/22 02:48 INR 1.17 (0.8-1.2) 02/27/22 02:48 APTT 34.0 SECONDS (23.9-36.7) 02/27/22 02:48 Sodium 138 mmol/L (136-145) 02/28/22 02:36 Potassium 3.4 mmol/L (3.5-5.1) L 02/28/22 02:36 Chloride 99 mmol/L (98-107) 02/28/22 02:36 Carbon Dioxide 26 mmol/L (22-29) 02/28/22 02:36 Anion Gap 16.4 (5-19) 02/28/22 02:36 BUN 17 mg/dL (8-23) 02/28/22 02:36 Creatinine 0.8 mg/dL (0.7-1.2) 02/28/22 02:36 GFR Calculation Not Reportable 02/28/22 02:36 Glucose 173 mg/dL (65-115) H 02/28/22 02:36 POC Glucose 223 mg/dL (70-110) H 02/28/22 11:29 Estimat Average Glucose 134 02/27/22 02:48 Hemoglobin A1c 6.3 % (4.0-6.0) H 02/27/22 02:48 Calculated Osmolality 292 mOsm/kg (285-295) 02/28/22 02:36 Calcium 9.0 mg/dL (8.5-10.5) 02/28/22 02:36 Phosphorus 3.3 mg/dL (2.5-4.5) 02/28/22 02:36 Magnesium 1.7 mg/dL (1.7-2.3) 02/28/22 02:36 Total Bilirubin 0.3 mg/dL (0.15-1.2) 02/28/22 02:36 AST 16 U/L (0-40) 02/28/22 02:36 ALT 24 U/L (0-41) 02/28/22 02:36 Alkaline Phosphatase 91 U/L (40-130) 02/28/22 02:36 Troponin T Baseline 11 ng/L (0-15) 02/26/22 11:17 Troponin T 120 Minute 10.58 ng/L (0-15) 02/26/22 13:12 Delta Troponin T 0.42 ABS# (0-10) 02/26/22 13:12 Troponin T Hi Sens 6Hr 8.45 ng/L (0-15) 02/26/22 18:34 Troponin T Hi Sens 6Hr Delta -2.55 ng/L (0-12) L 02/26/22 18:34 Total Protein 6.3 g/dL (6.6-8.7) L 02/28/22 02:36 Albumin 3.4 g/dL (3.5-5.2) L 02/28/22 02:36 Globulin 2.9 g/dL (1.3-4.6) 02/28/22 02:36 Urine Color Yellow (Yellow) 02/26/22 11:41 Urine Appearance Clear (CLEAR) 02/26/22 11:41 Urine pH 5.5 (5-7) 02/26/22 11:41 Ur Specific [place] 1.020 (1.005-1.030) 02/26/22 11:41 Urine Protein Negative (Negative) 02/26/22 11:41 Urine Glucose (UA) Negative (Normal) 02/26/22 11:41 Urine Ketones Negative (Negative) 02/26/22 11:41 Urine Blood Small (Negative) A 02/26/22 11:41 Urine Nitrate Negative 02/26/22 11:41 Urine Bilirubin Negative (Negative) 02/26/22 11:41 Urine Urobilinogen 0.2 mg/dL (Negative) 02/26/22 11:41 Ur Leukocyte Esterase Negative (Negative) 02/26/22 11:41 Urine RBC Rare /hpf (0-2) 02/26/22 11:41 Urine WBC 5-10 /hpf (0-5) H 02/26/22 11:41 Ur Squamous Epith Cells None /hpf (0-5) 02/26/22 11:41 Amorphous Sediment Not Reportable 02/26/22 11:41 Urine Bacteria Trace /hpf (NONE) 02/26/22 11:41 Vitals Last Vital Signs Temp 98.0 F 02/28/22 11:31 Pulse 94 02/28/22 11:31 Resp 18 02/28/22 11:31 BP 146/83 02/28/22 11:31 Pulse Ox 92 02/28/22 11:31 O2 Del Method 02/28/22 11:31 Discharge Plan Discharge Patient Disposition: Home Condition: Stable Prescriptions: New (DME) Glucometer testing kit See Rx Instructions .Route .MEDSUPPLY Qty: 1 0RF Rx Instructions: Check blood sugars, 3 times daily, after meals based on sliding scale provided Glucometer testing kits, strips #100, lancets #100 cephalexin 500 mg capsule 500 mg PO Q6H 5 Days Qty: 20 0RF metformin 500 mg tablet 500 mg PO DAILY 30 Days Qty: 30 0RF potassium chloride [Klor-Con 10] 10 mEq tablet extended release 10 meq PO DAILY 7 Days Qty: 7 0RF magnesium L-lactate 84 mg tablet extended release 84 mg PO DAILY 7 Days Qty: 7 0RF Continued multivitamin [Multiple Vitamins] Tablet 1 tab PO DAILY cetirizine [Zyrtec] 10 mg Tablet 10 mg PO DAILY PRN (Reason: Allergic Reaction) sertraline 100 mg Tablet 100 mg PO DAILY amlodipine [Norvasc] 10 mg Tablet 10 mg PO DAILY calcium polycarbophil [Fiber-Tabs] 625 mg Tablet 1,875 mg PO BID Qty: 0 albuterol sulfate [ProAir HFA] 90 mcg/actuation Hfa Aerosol Inhaler 2 puff INHALATION QID PRN (Reason: Shortness Of Breath) budesonide-formoterol [Symbicort] 160-4.5 mcg/actuation Hfa Aerosol Inhaler 2 puff INHALATION BID omega 7-ljm-yhc-fish oil [Fish Oil] 1,200 (144-216) mg Capsule 1 cap PO BID Qty: 0 chlorthalidone 25 mg Tablet 25 mg PO DAILY Qty: 30 0RF hydrocodone-acetaminophen 10-325 mg Tablet 1 tab PO Q6H PRN (Reason: Pain) garlic oil 1,000 mg Capsule 1,000 mg PO DAILY fluorouracil 0.5 % Cream 1 applic TOPICAL DAILY valsartan 160 mg Tablet 160 mg PO DAILY atorvastatin 40 mg Tablet 20 mg PO QPM Held Eliquis 5 mg tablet 5 mg PO BID Qty: 180 3RF Hold Instructions: Resume on 03/01/22. Discharge Orders: Discharge Order (Routine); Ordered 02/28/22 Ordered By: Leonardo Hyde Referrals: Tatiana Thomson MD [Primary Care Provider] - Lisset Dueñas MD [Physician] - 03/07/22 12:45 pm Discharge Diet: Cardiac Discharge Activity: Resume usual activity Patient Instructions: Opioid Safety, Post Pacemaker - [place] Activity Restrictions/Additional Instructions: 1. Patient is advised to limit the movements of the right shoulder to 45 degrees for the next 6 weeks. 2. Avoid any weightbearing in the right elbow, for 6 weeks. 3. Please cue the post pacemaker instructions 4. Keflex 500 mg p.o. every 6 hours for 5 days 5. Multivitamin 1 tablet daily for 2 weeks 6. Appointment the [facility] to be seen by nurse practitioner next Saturday 7. Appointment with me in the office in 1 month 8. May restart the Eliquis tomorrow. 9. In the event of him developing any unusual pain or swelling at the incision site, contact our office or come back to the hospital Assessment: - Your blood sugars have been running high, continue to check blood sugars 3 times daily, after meals, -I have also discharged you on metformin -Please [facility] with [facility] -If you have recurrent lightheadedness and dizziness go to emergency room Discharge Attestations Time Spent in Discharge Care*: less than 30 min Quality Metrics Clinical Quality Measures [ No reported AMI, CVA or VTE this stay] Coding Level of Care Code Acute Chg FW DC note Diagnoses Presence of permanent cardiac pacemaker Z95.0 Hypertension I10 Chronic back pain M54.9; G89.29 Dyslipidemia E78.5 Aortic valve sclerosis I35.8 Hypokalemia E87.6
--- NOTE | 2022-02-28 15:52 | PC.NURSE ---
meds to bed delivered
--- NOTE | 2022-02-28 17:35 | PC.NURSE ---
Discharge Note Patient discharged to home with home health services via private vehicle accompanied by his brother in law. Discharge instructions reviewed with patient and/or passenger representative. Mobile pharmacy medications and/or prescriptions provided. Belongings/home medications returned.
== END 2022-02-28 17:50 | disposition home health service (06) | DRG 244 ==
LOC: ER 14:16 → MEDSURG 15:12
PROVIDERS: Family Medicine; Internal Medicine Cardiovascular Disease; Admitting Provider Hospitalist; Emergency Provider Emergency Medicine; PCP Family Medicine; Visit Provider Family Medicine
PROC: 0JH606Z Insertion of Pacemaker, Dual Chamber into Chest Subcutaneous Tissue and Fascia, Open Approach (ICD-10-PCS; principal; 2022-02-27 16:30)
DX: I44.2 Atrioventricular block, complete (principal); I48.91 Unspecified atrial fibrillation; I35.0 Nonrheumatic aortic (valve) stenosis; N40.0 Benign prostatic hyperplasia without lower urinary tract symptoms; G89.29 Other chronic pain; M54.9 Dorsalgia, unspecified; J43.9 Emphysema, unspecified; E78.5 Hyperlipidemia, unspecified; I10 Essential (primary) hypertension; F43.10 Post-traumatic stress disorder, unspecified; Z87.891 Personal history of nicotine dependence; E11.65 Type 2 diabetes mellitus with hyperglycemia; E87.6 Hypokalemia; Z79.51 Long term (current) use of inhaled steroids; Z79.891 Long term (current) use of opiate analgesic
CPT/HCPCS: 33208; 36415; 36416; 51702; 71045; 80048; 80053; 81001; 82962; 83036; 83735; 84100; 84484; 85025; 85610; 85730; 93005; 94640; 96372; 97166; 97535; 99152; 99153; 99285; A9281; C1769; C1779; C1786; C1894; J0461; J0690; J1650; J1815; J2250; J3010; J3480; J7050; Q9967

== ENCOUNTER → 2022-03-14 09:27 | Outpatient (BNVA) | payer OTHER, SELFPAY | PROVIDERS: PCP Family Medicine; Visit Provider Nurse Practitioner Family | DX: Z95.0 Presence of cardiac pacemaker (principal); I48.91 Unspecified atrial fibrillation | CPT/HCPCS: 93280; 99214 ==

== ENCOUNTER → 2022-04-11 10:39 | Outpatient (BNVA) | payer OTHER, SELFPAY | PROVIDERS: PCP Family Medicine; Visit Provider Internal Medicine Cardiovascular Disease | DX: I48.91 Unspecified atrial fibrillation (principal); Z95.0 Presence of cardiac pacemaker; E11.9 Type 2 diabetes mellitus without complications; J43.9 Emphysema, unspecified; I35.0 Nonrheumatic aortic (valve) stenosis; Z87.891 Personal history of nicotine dependence | CPT/HCPCS: 99214 ==

== ENCOUNTER → 2022-04-27 09:34 | Outpatient (BNVA) | payer OTHER, SELFPAY | PROVIDERS: PCP Family Medicine; Visit Provider Internal Medicine Cardiovascular Disease | DX: Z45.010 Encounter for checking and testing of cardiac pacemaker pulse generator [battery] (principal) | CPT/HCPCS: 93280 ==

== ENCOUNTER → 2022-09-06 09:34 | Outpatient (BNVA) | payer OTHER, SELFPAY | PROVIDERS: PCP Family Medicine; Referring Provider Family Medicine; Visit Provider Student in an Organized Health Care Education/Training Program | DX: M17.12 Unilateral primary osteoarthritis, left knee (principal) | CPT/HCPCS: 20610; 73560; 73565; 99204; J3301 ==

== ENCOUNTER → 2022-11-08 10:34 | Outpatient (BNVA) | payer OTHER, SELFPAY | PROVIDERS: PCP Family Medicine; Visit Provider Student in an Organized Health Care Education/Training Program | DX: M17.12 Unilateral primary osteoarthritis, left knee (principal) | CPT/HCPCS: 73590; 99213 ==

== ENCOUNTER → 2022-11-13 09:30 | Outpatient (BNVA) | payer OTHER, SELFPAY | PROVIDERS: PCP Family Medicine; Visit Provider Specialist | DX: Z95.0 Presence of cardiac pacemaker (principal); I10 Essential (primary) hypertension; I48.91 Unspecified atrial fibrillation; E78.5 Hyperlipidemia, unspecified; Z87.891 Personal history of nicotine dependence | CPT/HCPCS: 99214 ==

== ENCOUNTER 2022-11-21 07:21 | Outpatient (CLI) | payer OTHER, SELFPAY ==
--- NOTE | 2022-11-21 07:45 | US_ITS ---
WS: [id number] Exam: US soft tissue/extremity [id number] Date/Time of Exam: 11/21/2022 7:59 AM Reason For Exam: radiating pain, burning pain in LLE The upper left calf region is targeted for ultrasound evaluation. A 1.5 x 2.7 cm complex mass being partially solid and partially cystic identified in the gastrocnemiu s muscle. A moderate-sized cystic component noted in the mass with discrete solid areas. A separate s maller hypoechoic complex nodule noted just superior to the largest lesion measures about 7 mm at gre atest diameter. No other discrete masses were identified. Recommendations: By history the patient cannot have an MRI and CT scanning with and without contrast might be considered. US/US soft tissue/extremity [id number] IMPRESSION: 1. Complex partially solid and partially cystic mass in the upper calf region w hich appears to be within the gastrocnemius muscle. Smaller subcentimeter heter ogeneous hypoechoic nodule just superior. Differential considerations would inc lude muscle tear with hematoma, abscess and/or phlegmon formation or less likel y soft tissue neoplasm.
== END 2022-11-21 07:22 | disposition home or self-care (01) ==
LOC: RAD 07:22
PROVIDERS: PCP Family Medicine; Visit Provider Student in an Organized Health Care Education/Training Program
DX: M79.605 Pain in left leg (principal); R22.42 Localized swelling, mass and lump, left lower limb
CPT/HCPCS: 76882

== ENCOUNTER → 2022-12-13 07:27 | Outpatient (BNVA) | payer OTHER, SELFPAY | PROVIDERS: PCP Family Medicine; Visit Provider Student in an Organized Health Care Education/Training Program | DX: Z09 Encounter for follow-up examination after completed treatment for conditions other than malignant neoplasm (principal); R22.42 Localized swelling, mass and lump, left lower limb | CPT/HCPCS: 99213 ==

== ENCOUNTER 2022-12-21 07:14 | Outpatient (CLI) | payer OTHER, SELFPAY ==
--- NOTE | 2022-12-21 07:30 | CT_ITS ---
WS: [id number] CONTRAST-ENHANCED CT LEFT KNEE TECHNIQUE: CONTRAST-ENHANCED CT LEFT knee with coronal and sagittal reformatted images. CLINICAL INFORMATION: CYST GASTROCNEMIUS MUSCLE COMPARISON: Ultrasound 11/21 2022 DLP: 685.[address] scans at [facility] use at least one of these dose optimization techniques: automated e xposure control; mA and/or kV adjustment per patient size (includes targeted exams where dose is matc hed to clinical indication); or iterative reconstruction. FINDINGS: In the area of concern, seen on the prior ultrasound is a peripherally enhancing complex cy stic lesion involving the lateral knee along the fibula head. This measures approximately 1.8 x 1.0 x 3.7 CM. This most likely likely represents a complex ganglion cyst adjacent to the proximal tibiofib ular joint versus less likely synovial osteochondromatosis. Additional nonspecific smaller similar-appearing low-attenuation cystic-appearing lesion in the lower popliteal fossa posterior to the tibia measuring 0.9 x 1.2 x 1.5 cm. No significant compression of t he popliteal artery lumen. Additional intercondylar ganglion cyst along the dorsal proximal PCL. Small suprapatellar effusion. Moderate degenerative changes at the patellofemoral articulation. Small amount of prepatellar soft tissue edema. Distal quadriceps and patella tendons appear intact. Mild tricompartmental arthritis. Vascular calcif ication. Joint space narrowing worse involving the medial joint compartment with subchondral sclerosi s. Mild hypertrophic changes along the joint line. Hypertrophic patella. Subchondral cystic change in volving the patella and fibular head. Subchondral cystic changes involving the posterior lateral femo ral condyle. CT/CT knee LT w con [id number] IMPRESSION: 1. In the area of concern, there is a peripherally enhancing complex cystic le kaleigh involving the lateral knee along the fibula head measuring 1.8 x 1.0 x 3.7 CM. This most likely likely represents a complex ganglion cyst adjacent to the proximal tibiofibular joint versus less likely synovial osteochondromatosis. 2. Small suprapatellar effusion. 3. Moderate tricompartmental arthritis
[2022-12-21 08:11] LABS: Blood Urea Nitrogen 13 mg/dL (8-23)
[2022-12-21] MEDS: iohexol 350 mg/mL 500 mL Btl (per mL) IV (08:33)
== END 2022-12-21 07:15 | disposition home or self-care (01) ==
LOC: RAD 07:15
PROVIDERS: PCP Family Medicine; Visit Provider Student in an Organized Health Care Education/Training Program
DX: M25.862 Other specified joint disorders, left knee (principal); M25.462 Effusion, left knee; M17.12 Unilateral primary osteoarthritis, left knee
CPT/HCPCS: 73701; 82565; 84520; Q9967

== ENCOUNTER → 2023-01-01 07:20 | Outpatient (BNVA) | payer OTHER, SELFPAY | PROVIDERS: PCP Family Medicine; Visit Provider Student in an Organized Health Care Education/Training Program | DX: Z09 Encounter for follow-up examination after completed treatment for conditions other than malignant neoplasm (principal); M67.462 Ganglion, left knee | CPT/HCPCS: 99213 ==

== ENCOUNTER 2023-04-04 08:24 | Emergency (ER) | payer OTHER, SELFPAY ==
--- NOTE | 2023-04-04 08:32 | XR_ITS ---
WS: [id number] Portable AP upright chest, 04/04/2023 Clinical Data: dyspnea/cough Comparison: Portable chest, 02/28/2022 Findings: No nodules, masses or effusions are seen. The heart is normal. The pulmonary vascularity is not increased. No pneumonia or pneumothorax is seen. The permanent cardiac pacemaker remains in the same position with the generator in the right axilla. The aortic arch and descending thoracic aorta s how tortuosity. There are monitor leads on the chest wall. Impression: Atherosclerosis.
[2023-04-04 08:34] VITALS: BP 142/108; PULSE 77; RESP 18; TEMP 36.8; O2SAT 94; BMI 38.7
--- NOTE | 2023-04-04 08:41 | W.ED.SOB ---
HPI - SOB/Dyspnea General: Chief Complaint: Shortness of Breath/Dyspnea Stated Complaint: sob, fatigue, has pacemaker, back and leg pain Time Seen by Provider: 04/04/23 08:31 Source: patient Mode of arrival: ambulatory History of Present Illness: HPI Narrative: 78-year-old male presents emergency room with complaint of increasing shortness of breath and fatigue during the day. He has noticed over the last couple of weeks. He was directed here to have his pacemaker checked. He denies any fever sweats chills cough. He has been taking a lot of melatonin and Benadryl for sleep at night and since then has become very short of breath during the day feels extremely fatigued. No chest pain or pressure no lightheadedness or dizziness. MD elicited complaint: shortness of breath and cough Onset (ago): week(s) Timing: intermittent Severity: mild Exacerbating factors: nothing Relieving factors: nothing Associated symptoms: Deny abdominal pain, chest congestion, chest pain, cough, diaphoresis, dizziness, extremity pain, fever(s), hemoptysis, lightheadedness, myalgias, nausea, orthopnea, palpitations, paresthesias, polydipsia, polyuria, rash, sense of impending doom, syncope or vomiting Treatment prior to arrival: none Review of Systems Const: Denies: fever(s), chills or diaphoresis Card: Denies: chest pain, palpitations, lightheadedness, syncope or orthopnea Resp: Denies: dyspnea, hemoptysis or chest congestion GI: Denies: abdominal pain, nausea or vomiting : Denies: dysuria, urinary frequency or urinary urgency Musc: Denies: neck pain, back pain or extremity pain Skin/Breast: Denies: rash Neuro: Denies: dizziness Endo: Denies: polyuria or polydipsia [facility] ED PFSH: Medical History Aortic valve stenosis EDIE 2.0 cm2 in 2019, technically difficult study on repeat 01/2025 showed apparent thickening of aortic valve/sclerosis Atrial fibrillation BPH (benign prostatic hyperplasia) Chronic back pain COPD (chronic obstructive pulmonary disease) Dyslipidemia History of cardiovascular stress test 10/2018 at [facility], unremarkable 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 transvenous pacer 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, 3rd degree heart block resolved, had 1st degree block Hypertension Left bundle branch block PTSD (post-traumatic stress disorder) Surgical History History of appendectomy History of back surgery X2 History of cataract surgery Family History Mother Cancer Social History Smoking and tobacco/nicotine status: former use of tobacco/nicotine Alcohol intake: current Alcohol intake frequency: few times a week Alcohol type: beer Substance/Drug Use: never Physical Exam Const: COMMON NORMALS: no acute distress GENERAL APPEARANCE: cooperative and comfortable ORIENTATION/CONSCIOUSNESS: Yes awake, Yes oriented to person, Yes oriented to place and Yes oriented to time HENMT: COMMON NORMALS: normocephalic, atraumatic and hearing grossly normal bilaterally HEAD & SCALP: normocephalic and atraumatic Resp: COMMON NORMALS: normal respiratory effort, No retractions, No use of accessory muscles and clear to auscultation bilaterally AUSCULTATION: clear to auscultation bilaterally Cardio: COMMON NORMALS: regular rate, regular rhythm and No murmurs present (Cardio) RATE: regular rate RHYTHM: regular rhythm GI: COMMON NORMALS: Soft to palpation and No hepatosplenomegaly present AUSCULTATION: Yes normoactive bowel sounds PALPATION: Yes Soft to palpation, No Tenderness to palpation present (GI), No Guarding due to palpation present (GI) and Yes No hepatosplenomegaly present Extremity: COMMON NORMALS: normal to inspection, capillary refill normal, no clubbing, cyanosis or edema, no calf tenderness and no pedal edema Neuro: SENSORIUM/ORIENTATION: Yes oriented to person, Yes oriented to place and Yes oriented to time Skin: COMMON NORMALS: no rashes or lesions noted GENERAL SKIN EXAM: no rashes or lesions noted Course Vital Signs: Vital signs: Vital Signs Temperature 98.3 F 04/04/23 08:34 Pulse Rate 85 04/04/23 09:08 Respiratory Rate 19 H 04/04/23 09:08 Blood Pressure 119/83 04/04/23 09:08 Pulse Oximetry 94 04/04/23 09:08 Oxygen Delivery Me thod Room Air 04/04/23 09:08 MDM - SOB/Dyspnea Medical Decision Making Patient paced appropriately while in the emergency room no abnormalities EKG shows a paced rhythm. We will set him up to go to cardiology clinic for pacemaker evaluation he is otherwise asymptomatic at this time I think his symptoms in large part are due to his use of melatonin and diphenhydramine as a sleep aid. We did contact the cardiology clinic he left here from the ER and went to the cardiology clinic for pacemaker evaluation. No symptoms suggestive of acute coronary syndrome and no signs of congestive heart failure symptoms. Medical Records I reviewed the patient's medical records. Lab Data I reviewed the patient's lab results. 04/04/23 08:42 04/04/23 08:42 Labs/Radiology: Laboratory Results WBC 6.18 10^3/uL (3.29-11.43) 04/04/23 08:42 RBC 4.45 10^6/uL (3.85-5.65) 04/04/23 08:42 Hgb 14.90 g/dL (11.27-16.99) 04/04/23 08:42 Hct 45.3 % (37-53) 04/04/23 08:42 MCV 101.8 fl (82-101) H 04/04/23 08:42 MCH 33.5 pg (27-33) H 04/04/23 08:42 MCHC 32.9 g/dL (30-55) 04/04/23 08:42 RDW 12.8 % (12.1-15.1) 04/04/23 08:42 Plt Count 208 10^3/cmm (157-399) 04/04/23 08:42 MPV 10.9 fL (7.4-10.4) H 04/04/23 08:42 Neut % (Auto) 67.3 % 04/04/23 08:42 Lymph % (Auto) 23.0 % 04/04/23 08:42 Shannon % (Auto) 7.1 % 04/04/23 08:42 Eos % (Auto) 1.3 % 04/04/23 08:42 Baso % (Auto) 1.0 % 04/04/23 08:42 Neut # (Auto) 4.16 10^3/uL (1.8-7.7) 04/04/23 08:42 Lymph # (Auto) 1.4 10^3/uL (0.8-4.8) 04/04/23 08:42 Shannon # (Auto) 0.4 10^3/uL (0.2-0.9) 04/04/23 08:42 Eos # (Auto) 0.1 10^3/uL (0.0-0.8) 04/04/23 08:42 Baso # (Auto) 0.1 10^3/uL (0.0-0.1) 04/04/23 08:42 Nucleated RBC % (auto) 0 % 04/04/23 08:42 Nucleated RBCs # 0.0 /100WBC 04/04/23 08:42 Sodium 138 mmol/L (136-145) 04/04/23 08:42 Potassium 4.9 mmol/L (3.5-5.1) 04/04/23 08:42 Chloride 104 mmol/L (98-107) 04/04/23 08:42 Carbon Dioxide 24 mmol/L (22-29) 04/04/23 08:42 Anion Gap 14.9 (5-19) 04/04/23 08:42 BUN 12 mg/dL (8-23) 04/04/23 08:42 Creatinine 0.7 mg/dL (0.7-1.2) 04/04/23 08:42 GFR Calculation Not Reportable 04/04/23 08:42 Glucose 134 mg/dL (65-115) H 04/04/23 08:42 Calculated Osmolality 288 mOsm/kg (285-295) 04/04/23 08:42 Calcium 8.8 mg/dL (8.5-10.5) 04/04/23 08:42 Total Bilirubin 0.3 mg/dL (0.15-1.2) 04/04/23 08:42 AST 17 U/L (0-40) 04/04/23 08:42 ALT 27 U/L (0-41) 04/04/23 08:42 Alkaline Phosphatase 98 U/L (40-130) 04/04/23 08:42 Total Protein 7.1 g/dL (6.6-8.7) 04/04/23 08:42 Albumin 4.1 g/dL (3.5-5.2) 04/04/23 08:42 Globulin 3.0 g/dL (1.3-4.6) 04/04/23 08:42 Influenza Type A Ag negative (Negative) 04/04/23 08:38 Influenza Type B Ag negative (Negative) 04/04/23 08:38 SARS-CoV-2 Ag (Rapid) negative (Negative) 04/04/23 08:38 All radiology interpretation(s) finalized by discharge Discharge Plan Discharge Patient Disposition: Home Clinical Impression: Medication adverse effect, Type 2 diabetes mellitus, COPD (chronic obstructive pulmonary disease) Condition: Stable Prescriptions: No Action metoprolol tartrate 50 mg tablet 50 mg PO BID Qty: 180 3RF cetirizine [Zyrtec] 10 mg Tablet 10 mg PO DAILY PRN (Reason: Allergic Symptoms) amlodipine [Norvasc] 10 mg Tablet 10 mg PO DAILY omega 9-ktr-njv-fish oil [Fish Oil] 1,200 (144-216) mg Capsule 1 cap PO BID Qty: 0 chlorthalidone 25 mg Tablet 25 mg PO DAILY Qty: 30 0RF sertraline 100 mg Tablet 100 mg PO DAILY niacin 750 mg Tablet Extended Release 24 Hr 750 mg PO BEDTIME oxybutynin chloride 5 mg tablet 5 mg PO BEDTIME rosuvastatin 40 mg Tablet 20 mg PO QPM testosterone 1.62 % (20.25 mg/1.25 gram) Gel In Packet See Rx Instructions .ROUTE .COMPLEX Rx Instructions: as directed garlic [garlic oil] 1,000 mg Capsule 1,000 mg PO DAILY (DME) Glucometer testing kit See Rx Instructions .Route .MEDSUPPLY Qty: 1 0RF Rx Instructions: Check blood sugars, 3 times daily, after meals based on sliding scale provided Glucometer testing kits, strips #100, lancets #100 valsartan 160 mg tablet 80 mg PO DAILY Discharge Orders: Discharge ED (Routine); Ordered 04/04/23 Ordered By: Jozef Jason Discharge Diet: Usual diet Discharge Activity: Resume usual activity Patient Instructions: Opioid Safety, Pain Management Activity Restrictions/Additional Instructions: Thank you for choosing [facility] for your healthcare needs today. Please realize this is an emergency room and that we are providing you with a medical screening exam and this may not be complete and all inclusive of all the testing and or work up that you may need to determine your ailment or severity of your illness. It is very important that you follow up as instructed or that you return to the Emergency Department should you have concerns or if your condition changes or worsens in any way. You were seen for complaints of tiredness throughout the day your laboratory test and exam are unremarkable. Your EKG shows a paced rhythm and cardiac monitoring in the emergency room showed a paced rhythm with no abnormalities. As we had discussed suspect her daytime sleepiness is due to side effects from medications particularly melatonin and diphenhydramine you have been using for sleep aids. Case management will make arrangements for you to follow-up with cardiology for further evaluation including possible pacemaker interrogation if felt appropriate. Coding Level of Care Code ED Local City Driver for Lalo Jackson
[2023-04-04 08:45] VITALS: BP 120/83; PULSE 85; RESP 18; O2SAT 94
[2023-04-04 08:54] LABS: Basophils # 0.1 10^3/uL (0.0-0.1); Eosinophils # 0.1 10^3/uL (0.0-0.8); Eosinophils % 1.3 %; Hematocrit 45.3 % (37-53); Lymphocytes # 1.4 10^3/uL (0.8-4.8); Mean Corpuscular HGB Conc 32.9 g/dL (30-55); Mean Corpuscular Hemoglobin 33.5 pg (27-33); Mean Corpuscular Volume 101.8 fl (82-101); Mean Platelet Volume 10.9 fL (7.4-10.4); Monocytes # 0.4 10^3/uL (0.2-0.9); Monocytes % 7.1 %; Neutrophils # 4.16 10^3/uL (1.8-7.7); Neutrophils % 67.3 %; Nucleated Red Blood Cells % 0 %; Platelet Count 208 10^3/cmm (157-399); Red Blood Count 4.45 10^6/uL (3.85-5.65); Red Cell Distribution Width 12.8 % (12.1-15.1); White Blood Count 6.18 10^3/uL (3.29-11.43)
[2023-04-04 09:08] VITALS: BP 119/83; PULSE 85; RESP 19; O2SAT 94
[2023-04-04 09:11] LABS: Influenza A by IFA negative (Negative); Influenza B by IFA negative (Negative)
[2023-04-04 09:12] LABS: SARS Covid-2 Antigen negative (Negative)
[2023-04-04 09:18] LABS: Alanine Aminotransferase 27 U/L (0-41); Albumin Level 4.1 g/dL (3.5-5.2); Alkaline Phosphatase 98 U/L (40-130); Anion Gap 14.9 (5-19); Aspartate Amino Transferase 17 U/L (0-40); Blood Urea Nitrogen 12 mg/dL (8-23); Calcium 8.8 mg/dL (8.5-10.5); Carbon Dioxide 24 mmol/L (22-29); Chloride 104 mmol/L (98-107); Creatinine Clr Calc Pharmacy 103.0978; Glucose 134 mg/dL (65-115); Osmolality Calculated 288 mOsm/kg (285-295); Potassium 4.9 mmol/L (3.5-5.1); Sodium 138 mmol/L (136-145); Total Bilirubin 0.3 mg/dL (0.15-1.2); Total Protein 7.1 g/dL (6.6-8.7)
== END 2023-04-04 09:55 | disposition home or self-care (01) ==
PROVIDERS: Emergency Provider Family Medicine
DX: J44.9 Chronic obstructive pulmonary disease, unspecified (principal); E11.9 Type 2 diabetes mellitus without complications; T88.7XXA Unspecified adverse effect of drug or medicament, initial encounter; T45.0X5A Adverse effect of antiallergic and antiemetic drugs, initial encounter; Z87.891 Personal history of nicotine dependence; E78.5 Hyperlipidemia, unspecified; I10 Essential (primary) hypertension; Z11.52 Encounter for screening for COVID-19
CPT/HCPCS: 36415; 71045; 80053; 85025; 87426; 87804; 99284

== ENCOUNTER → 2023-05-10 08:45 | Outpatient (BNVA) | payer OTHER, SELFPAY | PROVIDERS: PCP Family Medicine; Visit Provider Student in an Organized Health Care Education/Training Program | DX: M17.12 Unilateral primary osteoarthritis, left knee (principal) | CPT/HCPCS: 20610; 77002; 99214; J3301 ==

== ENCOUNTER → 2023-06-04 10:20 | Outpatient (BNVA) | payer OTHER, SELFPAY | PROVIDERS: PCP Family Medicine; Visit Provider Internal Medicine Cardiovascular Disease | DX: I35.0 Nonrheumatic aortic (valve) stenosis (principal); I10 Essential (primary) hypertension; E78.5 Hyperlipidemia, unspecified; Z95.0 Presence of cardiac pacemaker; Z87.891 Personal history of nicotine dependence | CPT/HCPCS: 99214 ==

== ENCOUNTER → 2023-08-13 09:56 | Outpatient (BNVA) | payer OTHER, SELFPAY | PROVIDERS: PCP Family Medicine; Visit Provider Student in an Organized Health Care Education/Training Program | DX: Z01.818 Encounter for other preprocedural examination (principal); M17.12 Unilateral primary osteoarthritis, left knee; M67.462 Ganglion, left knee | CPT/HCPCS: 99214 ==

== ENCOUNTER 2023-09-02 07:47 | Outpatient (CLI) | payer OTHER, SELFPAY ==
[2023-09-02 08:21] LABS: Basophils # 0.1 10^3/uL (0.0-0.1); Basophils % 0.9 %; Eosinophils # 0.2 10^3/uL (0.0-0.8); Eosinophils % 2.3 %; Hematocrit 44.1 % (37-53); Lymphocytes # 1.7 10^3/uL (0.8-4.8); Lymphocytes % 23.8 %; Mean Corpuscular HGB Conc 33.3 g/dL (30-55); Mean Corpuscular Volume 98.9 fl (82-101); Mean Platelet Volume 10.8 fL (7.4-10.4); Monocytes # 0.5 10^3/uL (0.2-0.9); Monocytes % 6.5 %; Neutrophils # 4.58 10^3/uL (1.8-7.7); Neutrophils % 66.2 %; Nucleated Red Blood Cells % 0 %; Platelet Count 207 10^3/cmm (157-399); Red Blood Count 4.46 10^6/uL (3.85-5.65); Red Cell Distribution Width 13.2 % (12.1-15.1); White Blood Count 6.92 10^3/uL (3.29-11.43)
[2023-09-02 08:41] LABS: Alanine Aminotransferase 25 U/L (0-41); Albumin Level 3.9 g/dL (3.5-5.2); Alkaline Phosphatase 94 U/L (40-130); Anion Gap 12.8 (5-19); Aspartate Amino Transferase 15 U/L (0-40); Blood Urea Nitrogen 14 mg/dL (8-23); Calcium 9.2 mg/dL (8.5-10.5); Carbon Dioxide 26 mmol/L (22-29); Chloride 101 mmol/L (98-107); Globulin 3.3 g/dL (1.3-4.6); Glucose 150 mg/dL (65-115); Osmolality Calculated 283 mOsm/kg (285-295); Potassium 4.8 mmol/L (3.5-5.1); Sodium 135 mmol/L (136-145); Total Bilirubin 0.3 mg/dL (0.15-1.2); Total Protein 7.2 g/dL (6.6-8.7)
[2023-09-02 09:57] LABS: Add Urine Microscopic? YES; Bilirubin Urine Neg (Negative); Blood Urine Neg (Negative); Glucose Urine UA Norm (Normal); Ketones Urine Negative (Negative); Leukocyte Esterase Urine 1+ (Negative); Nitrate Urine Negative (Negative); Protein Urine Trace (Negative); Urine Appearance SL Hazy (CLEAR); Urine Color Yellow (Yellow); Urobilinogen Urine Norm (Negative); pH Urine 5 (5-7)
[2023-09-02 09:59] LABS: Add Urine Culture? Yes; Bacteria Urine 1+ /hpf; Squamous Epithelial Cell Urine RARE /hpf (0-5); WBC Urine 15-25 /hpf (0-5)
== END 2023-09-02 07:48 | disposition home or self-care (01) ==
LOC: LAB 07:48
PROVIDERS: PCP Family Medicine; Visit Provider Student in an Organized Health Care Education/Training Program
DX: Z01.818 Encounter for other preprocedural examination (principal)
CPT/HCPCS: 36415; 80053; 81001; 85025; 87086

== ENCOUNTER → 2023-09-03 08:06 | Outpatient (BNVA) | payer OTHER, SELFPAY | PROVIDERS: PCP Family Medicine; Visit Provider Family Medicine | DX: Z01.818 Encounter for other preprocedural examination (principal) | CPT/HCPCS: 93005 ==

== ENCOUNTER 2023-09-19 08:03 | Day surgery (SDC) | payer OTHER, SELFPAY ==
[2023-09-19] VITALS (10 sets, daily range): BP systolic 116–152; BP diastolic 68–97; PULSE 60–81; RESP 13–20; TEMP 36.2–36.6; O2SAT 93–98
[2023-09-19] MEDS: sodium chloride 0.9% 1,000 ML 30 ML IV (10:08)
[2023-09-19] MEDS: acetaminophen 1,000 MG/100 ML PIGGYBACK 400 MG IV (10:09)
[2023-09-19] MEDS: scopolamine 1.5 Patch 1 PATCH TRANSDERMA (10:14)
[2023-09-19] MEDS: ketorolac 30 mg/mL INJ IVP (10:20)
--- NOTE | 2023-09-19 12:48 | P.HP_ITS ---
Same Day Surgery H&P Indication for Procedure/HPI DATE OF PROCEDURE: September 19, 2023 CHIEF COMPLAINT/INDICATIONFOR SURGICAL PROCEDURE: Left knee proximal tib-fib instability and ganglion cyst PREOP DIAGNOSIS: Left knee proximal tib-fib instability and ganglion cyst PLANNED PROCEDURE: Operation Date: 09/19/23 11:55 Proposed Procedures p Tibiofibular Joint Arthrodesis Proximal Tibiofibular Joint Arthrodesis(Left) - Jer Andino DO s Excision Of Ganglion Cyst(Left) - Jer Andino DO Medications/Allergies* Home Medications Medication Instructions Recorded Confirmed Type amlodipine 10 mg tablet (Norvasc) 10 mg PO DAILY 07/24/19 09/19/23 History cetirizine 10 mg tablet (Zyrtec) 10 mg PO DAILY PRN Allergic 07/24/19 09/18/23 History Symptoms omega 0-qmq-dla-fish oil 1,200 mg 1 cap PO BID ##0 07/24/19 09/18/23 History (144 mg-216 mg) capsule (Fish Oil) garlic 1,000 mg capsule (garlic 1,000 mg PO DAILY 02/26/22 09/18/23 History oil) valsartan 160 mg tablet 80 mg PO DAILY 04/11/22 09/18/23 History sertraline 100 mg tablet 100 mg PO DAILY 04/04/23 09/18/23 History testosterone 1.62 % (20.25 mg/1.25 See Rx Instructions .Route .COMPLEX 04/04/23 09/18/23 History gram) transdermal gel packet Allergies/Adverse Reactions Allergy/AdvReac Type Severity Reaction Status Date / Time No Known Allergies Allergy Verified 09/18/23 11:10 Current Medications: Generic Name Dose Route Start Last Admin Trade Name Freq PRN Reason Stop Dose Admin Sodium Chloride 1,000 mls @ 30 mls/hr 09/19/23 09:45 09/19/23 10:08 Sodium Chloride 0.9% IV 09/20/23 09:44 30 mls/hr .Q24H SUPA Administration Pertinent History/Comorbid Conditions* Medical History (Updated 06/04/23 @ 11:57 by Lisset Dueñas MD) Atrial fibrillation History of cardiovascular stress test 10/2018 at [facility], unremarkable 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 transvenous pacer 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, 3rd degree heart block resolved, had 1st degree block Left bundle branch block Aortic valve stenosis EDIE 2.0 cm2 in 2019, technically difficult study on repeat 01/2025 showed apparent thickening of aortic valve/sclerosis Dyslipidemia BPH (benign prostatic hyperplasia) Hypertension PTSD (post-traumatic stress disorder) Chronic back pain COPD (chronic obstructive pulmonary disease) Surgical History (Updated 02/26/22 @ 21:20 by Lily Sanchez MD) History of cataract surgery History of appendectomy History of back surgery X2 Family History (Updated 07/24/19 @ 13:02 by Niles Shaw MD) Cancer Mother Social History Smoking and tobacco/nicotine status: former use of tobacco/nicotine Alcohol intake: current Alcohol intake frequency: few times a week Alcohol type: beer Substance/Drug Use: never Pertinent Exam Findings alert, oriented x 3, operative site marked and procedure specific exam findings Severe tenderness palpation over the left proximal tib-fib joint with instability noted please refer to detailed orthopedic examination on 08/13/2023: Knee Exam: Mild medial joint line tenderness Mild lateral joint line tenderness Pitting edema of LLE Stable Varus and Valgus stress Knee ROM: Lacking 10 degrees of full extension Flexes greater than 120 degrees Severe tenderness to palpation over the proximal tib fib joint on the lateral aspect with palpable cyst. Toes plantarflex and dorsiflex ankle sensations intact to light touch distally. Patient does have palpable and mobile anterior to posterior instability of his proximal tibia fib joint with palpable clunk noted mobilizing the proximal tib-fib joint with significant pain appreciated. No bony tenderness to palpation over the entire aspect of the tibia. Negative Tinel's over this area. No calf tenderness to palpation, negative Homans sign Recommendations Surgery/Procedure today Other Plans: Plan to proceed to the OR today for left knee proximal tibiofibular joint arthrodesis and ganglion cyst excision. We will add on in the consent for a peroneal nerve decompression as we will need to dissect out the nerve prior to performing the cyst excision and arthrodesis screw. He understands the ins and outs procedure the risk benefits complication alternatives surgery we talked about the inherent detail and complications we can have of the screw as far as failure of the screw and fixation if he is unable to maintain restrictions as well as possible foot drop just dissecting out the peroneal nerve. He understands this and agrees to proceed all questions answered at this time. Coding Level of Care Code Acute Code for Chg Fwd
--- NOTE | 2023-09-19 12:48 | ANES.PREANE2 ---
Pre-Anesthetic Assessment Height/Weight: Height 1.78 m Weight 115.666 kg Temp Pulse Resp BP Pulse Ox O2 Del Method 97.1 F L 70 16 152/97 96 Room Air 09/19/23 09:51 09/19/23 09:51 09/19/23 09:51 09/19/23 09:51 09/19/23 09:51 09/19/23 09:51 Operation Date: 09/19/23 11:55 Proposed Procedures p Tibiofibular Joint Arthrodesis Proximal Tibiofibular Joint Arthrodesis(Left) - Jer Thu, DO s Excision Of Ganglion Cyst(Left) - Jer Randall, DO Familial anesthetic complications: None Was Beta Ladonna taken within 24 hours: N/A Was Clonidine taken within 24 hours: N/A Last intake: Intake Last Liquid Date 09/19/23 Last Liquid Time 05:00 Last Solid Date 09/18/23 Last Solid Time 00:00 Pulmonary Chronic Obstructive Pulmonary Disease CV/HEM Atrial Fibrillation, Arrythmia (pacemaker (DDD)) and Hypertension AV stenosis Metabolic Diabetes Mellitus and Morbid Obesity Anesthetic Plan ASA status: 4 Anesthesia: General Risk of > 500 ml blood loss (7ml/kg in children): No Medications/Allergies Home Medications Medication Instructions Recorded Confirmed Last Taken Type amlodipine 10 mg tablet (Norvasc) 10 mg PO DAILY 07/24/19 09/19/23 09/19/23 History cetirizine 10 mg tablet (Zyrtec) 10 mg PO DAILY PRN Allergic 07/24/19 09/18/23 09/17/23 History Symptoms omega 7-mve-nnl-fish oil 1,200 mg 1 cap PO BID ##0 07/24/19 09/18/23 09/14/23 History (144 mg-216 mg) capsule (Fish Oil) garlic 1,000 mg capsule (garlic 1,000 mg PO DAILY 02/26/22 09/18/23 09/14/23 History oil) Glucometer testing kit #1 ea 02/28/22 08/13/23 Unknown Rx valsartan 160 mg tablet 80 mg PO DAILY 04/11/22 09/18/23 09/17/23 History metoprolol tartrate 50 mg tablet 50 mg PO BID #180 tabs 04/12/22 09/19/23 09/19/23 Rx sertraline 100 mg tablet 100 mg PO DAILY 04/04/23 09/18/23 09/17/23 History testosterone 1.62 % (20.25 mg/1.25 See Rx Instructions .Route .COMPLEX 04/04/23 09/18/23 Unknown History gram) transdermal gel packet hydrocodone 5 mg-acetaminophen 325 1 tab PO .6 hrs PRN pain 10 days 09/03/23 09/19/23 09/19/23 Rx mg tablet #28 tabs Allergies Allergy/AdvReac Type Severity Reaction Status Date / Time No Known Allergies Allergy Verified 09/18/23 11:10 Current Medications Generic Name Dose Route Start Last Admin Trade Name Freq PRN Reason Stop Dose Admin Sodium Chloride 1,000 mls @ 30 mls/hr 09/19/23 09:45 09/19/23 10:08 Sodium Chloride 0.9% IV 09/20/23 09:44 30 mls/hr .Q24H SUPA Administration PFSH Anesthesia Medical History Atrial fibrillation History of cardiovascular stress test 10/2018 at [facility], unremarkable 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 transvenous pacer 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, 3rd degree heart block resolved, had 1st degree block Left bundle branch block Aortic valve stenosis EDIE 2.0 cm2 in 2019, technically difficult study on repeat 01/2025 showed apparent thickening of aortic valve/sclerosis Dyslipidemia BPH (benign prostatic hyperplasia) Hypertension PTSD (post-traumatic stress disorder) Chronic back pain COPD (chronic obstructive pulmonary disease) Surgical History History of cataract surgery History of appendectomy History of back surgery X2 Family History Mother Cancer Social History Smoking and tobacco/nicotine status: former use of tobacco/nicotine Alcohol intake: current Alcohol intake frequency: few times a week Alcohol type: beer Substance/Drug Use: never Data Anesthesia Cardiac Studies: Echocardiogram 02/18/22 Echocardiogram Ultrasound 07/25/19 Cardiac Event Monitor 02/20/22
[2023-09-19] MEDS: ceFAZolin 2,000 MG in sodium chloride 0.9% (plus) 50 ML 100 MG IV (13:09)
--- NOTE | 2023-09-19 14:57 | XR_ITS ---
WS: [id number] C-ARM RADIOGRAPHS LEFT KNEE; 3 IMAGES HISTORY: POST OP COMPARISON: None available. There is a single horizontal screw extending in the region of the fibular head through the tibial met aphysis. Moderate narrowing of the lateral compartment. Mild narrowing of the medial compartment. IMPRESSION: Intraoperative imaging during horizontal screw placement.
--- NOTE | 2023-09-19 16:08 | W.PM.BPON ---
Date of Procedure: [09/19/2023] Surgeon: Jer Andino DO Solar Mechanical Engineer(s): None Procedure(s) performed: Left knee proximal tib-fib joint arthrodesis Left knee proximal tib-fib ganglion cyst excision (5 cm x 3 cm x 2 cm) Left knee common peroneal nerve decompression Findings of the procedure(s): Patient was found to have a large ganglion cyst that was compressing with the anterior lateral compartments of the knee coming from the proximal tib-fib joint arthritis. I cultured the cyst fluid as well as sent the cyst for pathology I scraped and prepped the proximal tib-fib joint and then subsequently drilled and placed a fully threaded cortical screw for appropriate arthrodesis and fusion. The common peroneal nerve was dissected and protected throughout this case was examined postoperatively and found to be intact this patient was able to wiggle toes as well as plantarflex and dorsiflex the ankle. Estimated blood loss: 20 mL Specimen(s) removed: Ganglion cyst from left proximal tib-fib joint excised and sent for pathology as well as cultures aerobic and anaerobic of cyst fluid Post-operative diagnosis: Left knee proximal tib-fib joint arthritis with associated ganglion cyst and compression on the peroneal nerve
--- NOTE | 2023-09-19 16:11 | PM.OP ---
Operative Report Date of procedure: September 19, 2023 Pre-op diagnosis: Left knee proximal tib-fib joint arthritis Left knee proximal tib-fib joint ganglion cyst Post-op diagnosis: Left knee proximal tib-fib joint arthritis Left knee proximal tib-fib joint associated ganglion cyst Post-op findings: Large proximal tib-fib ganglion cyst noted involved with the proximal tib-fib joint excised and arthrodesis performed Procedure done: Left knee proximal tib-fib joint arthrodesis Left knee proximal tib-fib ganglion cyst excision (5 cm x 3 cm x 2 cm) Left knee common peroneal nerve decompression Implants: Ko fully threaded 3.5 x 80 mm screw Specimens removed/disposition: Large proximal tib-fib joint ganglion cyst excised and sent for permanent pathology specimen Also did culture cystic contents of aerobic and anaerobic Pathology: As stated above Surgeon: Jer Andino DO Supervisor Hand Workers: None Anesthesia: General Estimated blood loss: 20 mL 64 minutes IV fluids: 1000 mL Complications: None Findings: See operative report narrative Condition: stable Disposition: same day Brief History: Patient is a 78-year-old gentleman has been worked up in the outpatient setting for left knee pain. Originally concern for possible knee degenerative joint disease this was worked up and he did not have much relief with a cortisone injection he had tenderness to palpation more pronounced over the proximal tib-fib joint this was thoroughly worked up with ultrasound showing a cystic mass associated with the proximal tib-fib joint as well as degenerative and cystic changes of the proximal tib-fib joint which then did his pain. We had a guided injection which only provided minimal relief here. He subsequently had a CT scan confirming the same results of left knee proximal tib-fib joint arthritis with cystic mass. He is failed conservative treatment at this point in time would like to have this cyst removed as well as given the degenerative changes proximal tib-fib joint would recommend arthrodesis. He does have noticeable instability and clicking of the proximal tib-fib joint on the left side. At this point time patient understands the ins and outs procedure the risk benefits complication alternatives of surgery and through shared decision make elects proceed with surgical intervention all questions been answered at this time. Procedure: Patient presents the preoperative holding area consent was reviewed and signed with patient correct extremity was then marked. At this point time seen evaluate by anesthesia was cleared for surgery was taken back to the operative suite patient was then transported onto the OR table placed in supine position all bony prominences well-padded patient appropriate secured to the bed. Bone foam was applied to the left lower extremity with an ipsilateral hip bump. Left lower extremity had a nonsterile tourniquet applied to the left thigh. Patient then subsequent underwent anesthesia per the anesthesia department once properly anesthetized the left lower extremity was then prepped and draped in orthopedic fashion. Final timeout performed. Patient received appropriate preoperative antibiotics. Esmarch tourniquet was used exsanguinate the left lower extremity and tourniquet was insufflated to 250 mmHg A S shaped curvilinear incision was then made following the course of the common peroneal nerve around the proximal tib-fib joint. This did curve anteriorly into the anterior compartment of the knee where the cyst is. I sharply made scalpel excision through skin and subcutaneous tissue. I then subsequently switched to a dissection scissors. Maintain exact hemostasis throughout the dissection. I then subsequently identified the common peroneal nerve proximally and once this was identified I then slowly dissected and freed up this nerve to have this protected while I perform the arthrodesis. Sharp scalpel and incision was made into the fascia anteriorly. I then subsequently immediately encountered a large cystic mass. During my dissection this did rupture and extruded whitish cystic fluid and as result I cultured this with aerobic and anaerobic and sent this for microbiology I then identified the common peroneal nerve was which was just under the cyst which appeared to already have some mass effect giving there was proximal swelling of the nerve from the restriction distally of where the cyst was. My assistant professor of music held retractors around the nerve with gentle retraction to help peel off the cystic mass anteriorly where the nerve was coursing I then subsequently dissected circumferentially around the cystic mass and this had a stalk tracking up proximally into the proximal tib-fib joint. Once I had the entire cystic mass mobilized I then transected this at its base near the joint with bipolar electrocautery. Once this was then done I placed this in specimen cup and sent for pathology. At this point I finalized my peroneal nerve decompression both proximally and distally making sure there is no adhesive bands or tissues superficially or deep to the nerve. Once this was done the nerve was then protected throughout the rest of the case I then identified the proximal tib-fib joint utilized a curette to debride the proximal tib-fib joint in preparation for joint arthrodesis once I satisfied with this I then subsequently used a K wire while protecting my nerve going from lateral to medial to fuse the R joint of the left knee proximal tib-fib joint. I subsequently used a large fluoroscopic C arm to confirm placement of this wire to have a preplanned and satisfactory trajectory of my fully threaded standard 3.5 millimeter screw. This wire was then subsequently advanced to appropriate depth this was subsequently measured and found to be 80 mm in length. At this point I utilized the cannulated drill bit to drill over and prepped for the fully threaded cortical screw. Needle as a cortical fully threaded for increased rigidity and stability of the arthrodesis of the joint. The wire and cannulated drill bit was subsequently removed and then subsequently advanced by hand the 80 mm 3.5 cortical screw. This had excellent purchase on the medial cortex and compression of the tib-fib joint. I took final fluoroscopic imaging was satisfied with the arthrodesis. At this point time thoroughly irrigation was then performed. I then subsequently let tourniquet down maintain exact hemostasis with electrocautery and at this point time closed my incision in layered fashion with 0 Vicryl 2-0 Vicryl and then subsequently claude for the skin. This was then covered with Silverlon dressing as well as soft roll ABDs and an Caio wrap as well as a [place] hinged knee brace. Patient was then subsequent awake from anesthesia and taken to PACU in stable condition. Disposition: Patient taken back in stable condition recovering well. Will follow-up with patient in 2 weeks. At this point time would recommend toe-touch weightbearing however will allow range of motion of the knee as tolerated will see appropriate discharge instructions as well as pain medication as well as aspirin for DVT prophylaxis. Patient will follow-up in the office in 2 weeks. All questions answered.
--- NOTE | 2023-09-19 16:28 | PM.PACU ---
PACU note Narrative: Patient seen and examined in PACU was updated on surgical findings. Patient's currently in a [place] brace with unlocked on full range of motion educated on he should be toe-touch weightbearing to the left lower extremity at this point in time encourage knee range of motion prevent nerve scarring. Toes are warm and perfused, his compartments are soft compressible. Dressings clean dry and intact and he is able to wiggle the toes as well as plantarflex and dorsiflex ankle. Exam: awake Disposition: discharged
--- NOTE | 2023-09-19 17:20 | ANE.PACU2 ---
Inpatient post-anesthesia follow up: Airway intact: Yes Vital signs: Temperature 97.6 F Pulse Rate 60 Respiratory Rate 18 Blood Pressure 132/78 Pulse Oximetry 93 Oxygen Delivery Me thod Room Air Oxygen Flow Rate 6 Fraction of Inspir ed Oxygen Hydration adequate: Yes Nausea and vomiting: No Pain level: 1 Mental status: Baseline
== END 2023-09-19 17:20 | disposition home or self-care (01) ==
PROVIDERS: PCP Family Medicine; Visit Provider Student in an Organized Health Care Education/Training Program
PROC: (CPT 27871; principal; 2023-09-19 11:45)
PROC: (CPT 27328; 2023-09-19 11:45)
DX: M13.862 Other specified arthritis, left knee (principal); M67.462 Ganglion, left knee; J44.9 Chronic obstructive pulmonary disease, unspecified; I48.91 Unspecified atrial fibrillation; Z95.0 Presence of cardiac pacemaker; I10 Essential (primary) hypertension; E11.9 Type 2 diabetes mellitus without complications; E66.01 Morbid (severe) obesity due to excess calories; Z68.36 Body mass index [BMI] 36.0-36.9, adult; N40.0 Benign prostatic hyperplasia without lower urinary tract symptoms; Z87.891 Personal history of nicotine dependence
CPT/HCPCS: 27328; 27580; 51702; 73562; 76000; 87070; 87075; 87077; 87186; 87205; 88304; C1713; J0131; J0330; J0690; J1100; J1885; J2371; J2405; J2704; J2710; J3010; J3490; J7030

== ENCOUNTER → 2023-10-08 10:03 | Outpatient (BNVA) | payer OTHER, SELFPAY | PROVIDERS: PCP Family Medicine; Visit Provider Student in an Organized Health Care Education/Training Program | DX: M67.4 Ganglion (principal); M17.12 Unilateral primary osteoarthritis, left knee | CPT/HCPCS: 73560; 73565; 99213 ==

== ENCOUNTER 2023-10-13 06:20 | Emergency (ER) | payer OTHER, SELFPAY ==
--- NOTE | 2023-10-13 06:35 | XRR_ITS ---
PROCEDURE INFORMATION: Exam: XR Left Knee Exam date and time: 10/13/2023 7:04 AM Age: 78 years old Clinical indication: Swelling or effusion of joint; Prior surgery; Surgery date: 6+ months; Surgery type: Lt knee; Additional info: Pain swelling TECHNIQUE: Imaging protocol: Radiologic exam of the left knee. Views: 3 views. COMPARISON: CR XR knees AP WB w LT lmt ORTH 10/08/2023 10:28 AM FINDINGS: Bones/joints: Prior surgery with a threaded screw extending from the proximal fibula into the tibia. Tricompartment narrowing and spurring. Erosive changes. No acute osseous or joint abnormality.. Soft tissues: Normal. XR/XR knee LT 3V* [id number] IMPRESSION: No acute findings.
[2023-10-13 06:54] VITALS: BP 112/67; PULSE 82; RESP 17; TEMP 37; O2SAT 94; BMI 35.5
--- NOTE | 2023-10-13 07:20 | ED_ITS ---
HPI - Extremity Problem 2 General: Chief complaint: Extremity Problem,Nontraumatic Stated complaint: fulid build up in L knee Time Seen by Provider: 10/13/23 06:32 Source: patient Mode of arrival: ambulatory History of Present Illness: 78-year-old male presents emergency room with complaint of swelling at the lateral aspect of his left knee. He has a single screw placed across the proximal tib-fib by Dr. Andino on 425. Since then he has noticed increased swelling. No fever sweats chills no shortness of breath no chest pain no significant leg pain. No redness or erythema no drainage from the wound. MD Complaint: joint swelling Location: left and knee Relieving factors: nothing Exacerbating factors: nothing Associated symptoms: Deny arthralgias, chest pain, fever(s), myalgias, rash or short of breath Review of Systems 2 Const: Denies: fever(s), chills, fatigue or malaise Card: Denies: chest pain Resp: Denies: dyspnea GI: Denies: abdominal pain : Denies: dysuria, urinary frequency or urinary urgency Musc: Reports: joint swelling; Denies: neck pain or back pain Skin/Breast: Denies: rash PFSH ED 2 PFSH: Medical History Atrial fibrillation History of cardiovascular stress test 10/2018 at [facility], unremarkable 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 transvenous pacer 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, 3rd degree heart block resolved, had 1st degree block Left bundle branch block Aortic valve stenosis EDIE 2.0 cm2 in 2019, technically difficult study on repeat 01/2025 showed apparent thickening of aortic valve/sclerosis Dyslipidemia BPH (benign prostatic hyperplasia) Hypertension PTSD (post-traumatic stress disorder) Chronic back pain COPD (chronic obstructive pulmonary disease) Surgical History History of cataract surgery History of appendectomy History of back surgery X2 Family History Mother Cancer Social History Smoking and tobacco/nicotine status: former use of tobacco/nicotine Alcohol intake: current Alcohol intake frequency: few times a week Alcohol type: beer Substance/Drug Use: never Physical Exam 2 Const: COMMON NORMALS: no acute distress GENERAL APPEARANCE: cooperative and comfortable ORIENTATION/CONSCIOUSNESS: Yes awake, Yes oriented to person, Yes oriented to place and Yes oriented to time HENMT: COMMON NORMALS: normocephalic, atraumatic and hearing grossly normal bilaterally HEAD & SCALP: normocephalic and atraumatic Resp: COMMON NORMALS: normal respiratory effort, No retractions, No use of accessory muscles and clear to auscultation bilaterally AUSCULTATION: clear to auscultation bilaterally Cardio: COMMON NORMALS: regular rate, regular rhythm and No murmurs present (Cardio) RATE: regular rate RHYTHM: regular rhythm GI: COMMON NORMALS: Soft to palpation and No hepatosplenomegaly present A USCULTATION: Yes normoactive bowel sounds PALPATION: Yes Soft to palpation, No Tenderness to palpation present (GI), No Guarding due to palpation present (GI) and Yes No hepatosplenomegaly present Extremity: COMMON NORMALS: normal to inspection, capillary refill normal, no clubbing, cyanosis or edema, no calf tenderness and no pedal edema OTHER: Wound to the left lateral knee with well-healed intact no redness no erythema there is a significant amount of swelling fluctuant area underlying the incision. No active drainage is not warm to the touch no significant pain or tenderness with palpation Neuro: SENSORIUM/ORIENTATION: Yes oriented to person, Yes oriented to place and Yes oriented to time Skin: COMMON NORMALS: no rashes or lesions noted GENERAL SKIN EXAM: no rashes or lesions noted Course 2 Vital Signs: Vital signs: Vital Signs Temperature 98.6 F 10/13/23 06:54 Pulse Rate 73 10/13/23 08:57 Respiratory Rate 17 10/13/23 06:54 Blood Pressure 112/67 10/13/23 06:54 Pulse Oximetry 96 10/13/23 08:57 Oxygen Delivery Me thod Room Air 10/13/23 06:54 MDM - Extremity (Nontraumatic) Medical Decision Making Ultrasound shows a septated what appears to be seroma. No significant amount of debris overlying there is no evidence of infection his white count is elevated 30 has been drained was given septated I do not think it be soares to drain here. Will discharge patient home ice elevate follow-up with orthopedics tomorrow. If he has worsening or change symptoms develop fever return to the emergency room Medical Records I reviewed the patient's medical records. Lab Data I reviewed the patient's lab results. 10/13/23 08:10 Radiology Impressions Knee X-Ray 10/13/23 06:35 IMPRESSION: No acute findings. Soft Tissue Ultrasound 10/13/23 07:29 IMPRESSION: Large complex fluid collection. Laboratory Results WBC 6.28 10^3/uL (3.29-11.43) 10/13/23 08:10 RBC 4.27 10^6/uL (3.85-5.65) 10/13/23 08:10 Hgb 14.00 g/dL (11.27-16.99) 10/13/23 08:10 Hct 43.0 % (37-53) 10/13/23 08:10 MCV 100.7 fl (82-101) 10/13/23 08:10 MCH 32.8 pg (27-33) 10/13/23 08:10 MCHC 32.6 g/dL (30-55) 10/13/23 08:10 RDW 12.7 % (12.1-15.1) 10/13/23 08:10 Plt Count 184 10^3/cmm (157-399) 10/13/23 08:10 MPV 10.5 fL (7.4-10.4) H 10/13/23 08:10 Neut % (Auto) 61.3 % 10/13/23 08:10 Lymph % (Auto) 28.3 % 10/13/23 08:10 Bureau % (Auto) 6.1 % 10/13/23 08:10 Eos % (Auto) 3.0 % 10/13/23 08:10 Baso % (Auto) 1.0 % 10/13/23 08:10 Neut # (Auto) 3.85 10^3/uL (1.8-7.7) 10/13/23 08:10 Lymph # (Auto) 1.8 10^3/uL (0.8-4.8) 10/13/23 08:10 Bureau # (Auto) 0.4 10^3/uL (0.2-0.9) 10/13/23 08:10 Eos # (Auto) 0.2 10^3/uL (0.0-0.8) 10/13/23 08:10 Baso # (Auto) 0.1 10^3/uL (0.0-0.1) 10/13/23 08:10 Nucleated RBC % (auto) 0 % 10/13/23 08:10 Nucleated RBCs # 0.0 /100WBC 10/13/23 08:10 C-Reactive Protein 6.5 mg/L (0.0-4.9) H 10/13/23 08:10 All radiology interpretation(s) finalized by discharge Discharge Plan Discharge Patient Disposition: Home Clinical Impression: Seroma, postoperative Condition: Stable Prescriptions: No Action metoprolol tartrate 50 mg tablet 50 mg PO BID Qty: 180 3RF (DME) Cam Boot See Rx Instructions .Route .MEDSUPPLY Qty: 1 0RF Rx Instructions: As directed cephalexin 500 mg capsule 500 mg PO TID 10 Days Qty: 30 0RF hydrocodone-acetaminophen 5-325 mg tablet 1 tab PO .6 hrs PRN (Reason: pain) 10 Days Qty: 28 0RF sulfamethoxazole-trimethoprim [Bactrim DS] 800-160 mg tablet 1 tab PO BID Qty: 20 0RF cetirizine [Zyrtec] 10 mg Tablet 10 mg PO DAILY PRN (Reason: Allergic Symptoms) amlodipine [Norvasc] 10 mg Tablet 10 mg PO DAILY omega 1-ssx-hmn-fish oil [Fish Oil] 1,200 (144-216) mg Capsule 1 cap PO BID Qty: 0 sertraline 100 mg Tablet 100 mg PO DAILY testosterone 1.62 % (20.25 mg/1.25 gram) Gel In Packet See Rx Instructions .ROUTE .COMPLEX Rx Instructions: as directed garlic [garlic oil] 1,000 mg Capsule 1,000 mg PO DAILY (DME) Glucometer testing kit See Rx Instructions .Route .MEDSUPPLY Qty: 1 0RF Rx Instructions: Check blood sugars, 3 times daily, after meals based on sliding scale provided Glucometer testing kits, strips #100, lancets #100 valsartan 160 mg tablet 80 mg PO DAILY Calcium 600 + D(3) 600 mg-10 mcg (400 unit) tablet 1 tab PO DAILY 30 Days Qty: 30 0RF Discharge Orders: Discharge ED (Routine); Ordered 10/13/23 Ordered By: Jozef Jason Referrals: Tatiana Thomson MD [Primary Care Provider] - Discharge Diet: Usual diet Discharge Activity: Limit activity as instructed Patient Instructions: Opioid Safety, Pain Management Activity Restrictions/Additional Instructions: Thank you for choosing [facility] for your healthcare needs today. Please realize this is an emergency room and that we are providing you with a medical screening exam and this may not be complete and all inclusive of all the testing and or work up that you may need to determine your ailment or severity of your illness. It is very important that you follow up as instructed or that you return to the Emergency Department should you have concerns or if your condition changes or worsens in any way. You were seen today for swelling on the left knee postoperatively. Ultrasound shows a complex fluid collection. Recommend you follow-up with orthopedics for consideration of drainage or other treatment options. There is no sign of infection or DVT at this time. Recommend elevation and ice as you are able. Coding Level of Care Code ED Customer Resolution Specialist for Lalo Jackson
--- NOTE | 2023-10-13 07:29 | USR_ITS ---
PROCEDURE INFORMATION: Exam: US Left Non-Vascular Joint or Other Extremity Structure Exam date and time: 10/13/2023 8:02 AM Age: 78 years old Clinical indication: Pain; Knee; Left; Prior surgery; Surgery date: <1 month; Surgery type: Cyst removal; Additional info: L knee lateral hematoma TECHNIQUE: Imaging protocol: Left US joint or other nonvascular extremity structure or structures. Real-time ultrasound with image documentation. Limited study. Exam focused on the lower extremity in the region of clinical interest. COMPARISON: US soft tissue/extremity [id number] 11/21/2022 8:09 AM FINDINGS: Soft tissues: Large fluid collection containing debris in the lateral knee. This is incompletely imaged and measures at least 4 x 7 cm in size. This could represent abscess, hematoma, or complex cyst. US/US soft tissue/extremity [id number] IMPRESSION: Large complex fluid collection.
[2023-10-13 08:14] LABS: Basophils # 0.1 10^3/uL (0.0-0.1); Eosinophils # 0.2 10^3/uL (0.0-0.8); Lymphocytes # 1.8 10^3/uL (0.8-4.8); Lymphocytes % 28.3 %; Mean Corpuscular HGB Conc 32.6 g/dL (30-55); Mean Corpuscular Hemoglobin 32.8 pg (27-33); Mean Corpuscular Volume 100.7 fl (82-101); Mean Platelet Volume 10.5 fL (7.4-10.4); Monocytes # 0.4 10^3/uL (0.2-0.9); Monocytes % 6.1 %; Neutrophils # 3.85 10^3/uL (1.8-7.7); Neutrophils % 61.3 %; Nucleated Red Blood Cells % 0 %; Platelet Count 184 10^3/cmm (157-399); Red Blood Count 4.27 10^6/uL (3.85-5.65); Red Cell Distribution Width 12.7 % (12.1-15.1); White Blood Count 6.28 10^3/uL (3.29-11.43)
[2023-10-13 08:36] LABS: C Reactive Protein 6.5 mg/L (0.0-4.9)
[2023-10-13 08:57] VITALS: PULSE 73; O2SAT 96
== END 2023-10-13 08:58 | disposition home or self-care (01) ==
PROVIDERS: Emergency Provider Family Medicine; PCP Family Medicine
DX: M96.842 Postprocedural seroma of a musculoskeletal structure following a musculoskeletal system procedure (principal)
CPT/HCPCS: 36415; 73562; 76882; 85025; 86140; 99284

== ENCOUNTER → 2023-10-24 08:42 | Outpatient (BNVA) | payer OTHER, SELFPAY | PROVIDERS: PCP Family Medicine; Visit Provider Student in an Organized Health Care Education/Training Program | DX: M67.462 Ganglion, left knee; I97.622 Postprocedural seroma of a circulatory system organ or structure following other procedure | CPT/HCPCS: 73560; 73565; 99213 ==

== ENCOUNTER → 2023-11-14 09:25 | Outpatient (BNVA) | payer OTHER, SELFPAY | PROVIDERS: PCP Family Medicine; Visit Provider Student in an Organized Health Care Education/Training Program | DX: M67.462 Ganglion, left knee; I97.622 Postprocedural seroma of a circulatory system organ or structure following other procedure; M17.12 Unilateral primary osteoarthritis, left knee | CPT/HCPCS: 73560; 73565; 99213 ==

== ENCOUNTER → 2024-02-18 09:25 | Outpatient (BNVA) | payer OTHER, SELFPAY | PROVIDERS: PCP Family Medicine; Visit Provider Physician Assistant | DX: M17.12 Unilateral primary osteoarthritis, left knee; M67.462 Ganglion, left knee; M25.562 Pain in left knee; M25.561 Pain in right knee | CPT/HCPCS: 20610; 73560; 73565; 99213; J3301 ==

== ENCOUNTER → 2024-06-23 08:13 | Outpatient (BNVA) | payer OTHER, SELFPAY | PROVIDERS: PCP Family Medicine; Visit Provider Physician Assistant | DX: M17.12 Unilateral primary osteoarthritis, left knee (principal) | CPT/HCPCS: 20610; 73560; 73565; 99213; J3301 ==

== ENCOUNTER → 2024-10-27 10:51 | Outpatient (BNVA) | payer OTHER, SELFPAY | PROVIDERS: PCP Family Medicine; Visit Provider Physician Assistant | DX: M17.12 Unilateral primary osteoarthritis, left knee (principal) | CPT/HCPCS: 20610; 99213; J3301; J9999 ==

== ENCOUNTER 2025-01-06 08:31 | Emergency (ER) | payer OTHER, MEDICARE, SELFPAY ==
--- NOTE | 2025-01-06 08:36 | XR_ITS ---
WS: [id number] Portable AP upright chest, 01/06/2025 Clinical Data: weakness Comparison: Portable chest, 04/04/2023 Findings: No nodules, masses or effusions are seen. The heart is normal. The pulmonary vascularity is not increased. No pneumonia or pneumothorax is seen. The aortic arch and descending thoracic aorta show mild tortuosity. The cardiac pacemaker remains in the same position with the generator in the right axilla. XR/XR chest 1V portable [id number] Impression: Atherosclerosis.
[2025-01-06 08:37] VITALS: BP 144/79; PULSE 72; RESP 17; TEMP 36.6; O2SAT 94; BMI 35.5
--- NOTE | 2025-01-06 08:51 | ECG_ITS ---
[facility] Pat Name: Melvin Yan Department: Room: Gender: Male [place]: : 1945 Requested By: Ashley Shaffer Order Number: [id number] Reading MD: Measurements Intervals [place] Rate: 67 P: 99 WV: 174 QRS: -71 QRSD: 192 T: 96 QT: 469 QTc: 496 Interpretive Statements ELECTRONIC ATRIAL PACEMAKER ELECTRONIC VENTRICULAR PACEMAKER ABNORMAL RHYTHM ECG [email or web address]
--- NOTE | 2025-01-06 08:51 | PC.NURSE ---
Spoke w/Dr. Shaffer regarding patient's statement that he doesn't want to be around any more . Dr. Shaffer states that he will speak to the pt further to see what he really means.
--- NOTE | 2025-01-06 08:56 | W.ED.WEAKNES ---
HPI - Weakness General: Chief complaint: Weakness Stated complaint: weakness, shaking, fatigue Time Seen by Provider: 01/06/25 08:37 Source: patient Mode of arrival: ambulatory Limitations: no limitations History of Present Illness: 79-year-old male has a history of chronic pain he states that his pain management doctor retired and he has been gradually decreasing his pain meds states since then he has been having some increased weakness he states he is just felt weak over the last 2 weeks with fatigue states he has had some shakiness he feels like. He denies any focal weakness he denies any fever denies any vomiting or diarrhea. He has been ambulatory. Associated symptoms: Denies chest pain, chills, dysuria, fever(s), headache(s), nausea or vomiting Related Data Home Medications ?Medication ?Instructions ?Recorded ?Confirmed amlodipine 10 mg tablet (Norvasc) 10 mg PO DAILY 07/24/19 10/27/24 cetirizine 10 mg tablet (Zyrtec) 10 mg PO DAILY PRN Allergic 07/24/19 10/27/24 Symptoms omega 6-akv-ldc-fish oil 1,200 mg 1 cap PO BID ##0 07/24/19 10/27/24 (144 mg-216 mg) capsule (Fish Oil) garlic 1,000 mg capsule (garlic 1,000 mg PO DAILY 02/26/22 10/27/24 oil) valsartan 160 mg tablet 80 mg PO DAILY 04/11/22 10/27/24 sertraline 100 mg tablet 100 mg PO DAILY 04/04/23 10/27/24 testosterone 1.62 % (20.25 mg/1.25 See Rx Instructions .Route .COMPLEX 04/04/23 10/27/24 gram) transdermal gel packet Previous Rx's ?Medication ?Instructions ?Recorded Glucometer testing kit #1 ea 02/28/22 metoprolol tartrate 50 mg tablet 50 mg PO BID #180 tabs 04/12/22 hydrocodone 5 mg-acetaminophen 325 1 tab PO .6 hrs PRN pain 10 days 09/03/23 mg tablet #28 tabs Cam Boot #1 ea 10/08/23 apixaban 5 mg tablet (Eliquis) 5 mg PO BID #90 tabs 12/02/23 cephalexin 500 mg capsule 500 mg PO TID 7 days #21 caps 01/06/25 Allergies Allergy/AdvReac Type Severity Reaction Status Date / Time No Known Allergies Allergy Verified 10/27/24 11:34 Review of Systems Const: Reports: fatigue; Denies: fever(s), chills, body aches or change in appetite ENMT: Denies: throat pain or dental pain Card: Denies: chest pain Resp: Denies: dyspnea GI: Denies: abdominal pain, nausea, vomiting or diarrhea : Denies: dysuria Musc: Denies: neck pain or back pain Skin/Breast: Denies: rash Neuro: Denies: headache(s) PFS ED PFSH: Medical History Atrial fibrillation History of cardiovascular stress test 10/2018 at [facility] [place], unremarkable 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 transvenous pacer 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, 3rd degree heart block resolved, had 1st degree block Left bundle branch block Aortic valve stenosis EDIE 2.0 cm2 in 2019, technically difficult study on repeat 01/2025 showed apparent thickening of aortic valve/sclerosis Dyslipidemia BPH (benign prostatic hyperplasia) Hypertension PTSD (post-traumatic stress disorder) Chronic back pain COPD (chronic obstructive pulmonary disease) Surgical History History of cataract surgery History of appendectomy History of back surgery X2 Family History Mother Cancer Social History Smoking and tobacco/nicotine status: unknown if used tobacco/nicotine Alcohol intake: current Alcohol intake frequency: few times a week Alcohol type: beer Substance/Drug Use: never Physical Exam Const: COMMON NORMALS: no acute distress, patient oriented x3 and healthy appearing HENMT: COMMON NORMALS: normocephalic and atraumatic HEAD & SCALP: normocephalic and atraumatic Eye: COMMON NORMALS: Equal, round and reactive pupils present and EOMs intact bilaterally PUPIL: Yes Equal, round and reactive pupils present Neck/C-Spine: COMMON NORMALS: full ROM and supple Chest: COMMONS NORMALS: normal inspection of the chest and normal palpation of entire chest wall Resp: COMMON NORMALS: normal respiratory effort, No retractions, No use of accessory muscles and clear to auscultation bilaterally AUSCULTATION: clear to auscultation bilaterally Cardio: COMMON NORMALS: regular rate, regular rhythm and No murmurs present (Cardio) RATE: regular rate RHYTHM: regular rhythm GI: COMMON NORMALS: Normal to inspection, nondistended, normoactive bowel sounds present, Soft to palpation, non-tender and no masses PALPATION: Yes Soft to palpation Extremity: COMMON NORMALS: normal to inspection and full ROM Neuro: COMMON NORMALS: patient oriented x3, moves all extremities and no focal motor deficits Psych: COMMON NORMALS: mental status grossly normal, Normal thought process present and cooperative THOUGHT PROCESS: Normal thought process present Skin: COMMON NORMALS: no rashes or lesions noted and no wounds GENERAL SKIN EXAM: no rashes or lesions noted Course Vital Signs: Vital signs: Vital Signs Temperature 97.8 F 01/06/25 08:37 Pulse Rate 72 01/06/25 08:37 Respiratory Rate 17 01/06/25 08:37 Blood Pressure 144/79 01/06/25 08:37 Pulse Oximetry 95 01/06/25 10:06 Oxygen Delivery Me thod Room Air 01/06/25 08:37 MDM - Weakness Medical Decision Making Patient presents for some general weakness fatigue he does have a UTI blood work here is otherwise normal he stable for discharge he is to follow-up his PCP I will prescribe Keflex he is to return if worsening he understands agrees to plan. Medical Records I reviewed the patient's medical records. Lab Data I reviewed the patient's lab results. 01/06/25 08:58 01/06/25 08:58 Radiology Impressions Chest X-Ray 01/06/25 08:36 Impression: Atherosclerosis. Laboratory Results WBC 7.12 10^3/uL (3.29-11.43) 01/06/25 08:58 RBC 4.71 10^6/uL (3.85-5.65) 01/06/25 08:58 Hgb 15.70 g/dL (11.27-16.99) 01/06/25 08:58 Hct 44.1 % (37-53) 01/06/25 08:58 MCV 93.6 fl (82-101) 01/06/25 08:58 MCH 33.3 pg (27-33) H 01/06/25 08:58 MCHC 35.6 g/dL (30-55) 01/06/25 08:58 RDW 12.8 % (12.1-15.1) 01/06/25 08:58 Plt Count 197 10^3/cmm (157-399) 01/06/25 08:58 MPV 10.7 fL (7.4-10.4) H 01/06/25 08:58 Neut % (Auto) 64.9 % 01/06/25 08:58 Lymph % (Auto) 25.4 % 01/06/25 08:58 [place] % (Auto) 6.0 % 01/06/25 08:58 Eos % (Auto) 2.5 % 01/06/25 08:58 Baso % (Auto) 0.8 % 01/06/25 08:58 Neut # (Auto) 4.61 10^3/uL (1.8-7.7) 01/06/25 08:58 Lymph # (Auto) 1.8 10^3/uL (0.8-4.8) 01/06/25 08:58 [place] # (Auto) 0.4 10^3/uL (0.2-0.9) 01/06/25 08:58 Eos # (Auto) 0.2 10^3/uL (0.0-0.8) 01/06/25 08:58 Baso # (Auto) 0.1 10^3/uL (0.0-0.1) 01/06/25 08:58 Nucleated RBC % (auto) 0 % 01/06/25 08:58 Nucleated RBCs # 0.0 /100WBC 01/06/25 08:58 Sodium 137 mmol/L (136-145) 01/06/25 08:58 Potassium 4.5 mmol/L (3.5-5.1) 01/06/25 08:58 Chloride 102 mmol/L (98-107) 01/06/25 08:58 Carbon Dioxide 24 mmol/L (22-29) 01/06/25 08:58 Anion Gap 15.5 (5-19) 01/06/25 08:58 BUN 15 mg/dL (8-23) 01/06/25 08:58 Creatinine 0.8 mg/dL (0.7-1.2) 01/06/25 08:58 GFR Calculation Not Reportable 01/06/25 08:58 Glucose 181 mg/dL (65-115) H 01/06/25 08:58 POC Glucose 185 mg/dL (70-110) H 01/06/25 08:59 Calculated Osmolality 289 mOsm/kg (285-295) 01/06/25 08:58 Calcium 9.2 mg/dL (8.5-10.5) 01/06/25 08:58 Total Bilirubin 0.4 mg/dL (0.15-1.2) 01/06/25 08:58 AST 25 U/L (0-40) 01/06/25 08:58 ALT 45 U/L (0-41) H 01/06/25 08:58 Alkaline Phosphatase 102 U/L (40-130) 01/06/25 08:58 Total Protein 7.1 g/dL (6.6-8.7) 01/06/25 08:58 Albumin 4.2 g/dL (3.5-5.2) 01/06/25 08:58 Globulin 2.9 g/dL (1.3-4.6) 01/06/25 08:58 TSH 2.03 uIU/mL (0.27-4.20) 01/06/25 08:58 Urine Color Yellow (Yellow) 01/06/25 09:51 Urine Appearance Slightly cloudy (CLEAR) 01/06/25 09:51 Urine pH Not Reportable 01/06/25 09:51 Ur Specific [place] Not Reportable 01/06/25 09:51 Urine Protein Not Reportable 01/06/25 09:51 Urine Glucose (UA) Not Reportable 01/06/25 09:51 Urine Ketones Not Reportable 01/06/25 09:51 Urine Blood Not Reportable 01/06/25 09:51 Urine Nitrate Not Reportable 01/06/25 09:51 Urine Bilirubin Not Reportable 01/06/25 09:51 Urine Urobilinogen Not Reportable 01/06/25 09:51 Ur Leukocyte Esterase Not Reportable 01/06/25 09:51 Urine RBC 10-15 /hpf (0-2) H 01/06/25 09:51 Urine WBC 21-50 /hpf (0-5) H 01/06/25 09:51 Ur Squamous Epith Cells 5-10 /hpf (0-5) H 01/06/25 09:51 Amorphous Sediment Trace /hpf 01/06/25 09:51 Urine Bacteria 2+ /hpf (NONE) H 01/06/25 09:51 Hyaline Casts 5-10 /lpf H 01/06/25 09:51 Urine Mucus 1+ /hpf 01/06/25 09:51 All radiology interpretation(s) finalized by discharge EKG Data EKG 1: I personally reviewed and interpreted this EKG as follows: EKG interpretation date: 01/06/25 EKG interpretation time: 08:51 Interpretation: paced hr [address] elevation qrs 192 qtc 484 Discharge Plan Discharge Patient Disposition: Home Clinical Impression: Acute cystitis, Generalized weakness Condition: Stable Prescriptions: New cephalexin 500 mg capsule 500 mg PO TID 7 Days Qty: 21 0RF No Action metoprolol tartrate 50 mg tablet 50 mg PO BID Qty: 180 3RF Eliquis 5 mg tablet 5 mg PO BID Qty: 90 3RF (DME) Cam Boot See Rx Instructions .Route .MEDSUPPLY Qty: 1 0RF Rx Instructions: As directed hydrocodone-acetaminophen 5-325 mg tablet 1 tab PO .6 hrs PRN (Reason: pain) 10 Days Qty: 28 0RF cetirizine [Zyrtec] 10 mg Tablet 10 mg PO DAILY PRN (Reason: Allergic Symptoms) amlodipine [Norvasc] 10 mg Tablet 10 mg PO DAILY omega 6-jef-rnw-fish oil [Fish Oil] 1,200 (144-216) mg Capsule 1 cap PO BID Qty: 0 sertraline 100 mg Tablet 100 mg PO DAILY testosterone 1.62 % (20.25 mg/1.25 gram) Gel In Packet See Rx Instructions .ROUTE .COMPLEX Rx Instructions: as directed garlic [garlic oil] 1,000 mg Capsule 1,000 mg PO DAILY (DME) Glucometer testing kit See Rx Instructions .Route .MEDSUPPLY Qty: 1 0RF Rx Instructions: Check blood sugars, 3 times daily, after meals based on sliding scale provided Glucometer testing kits, strips #100, lancets #100 valsartan 160 mg tablet 80 mg PO DAILY Discharge Orders: Discharge ED (Routine); Ordered 01/06/25 Ordered By: Ashley Shaffer Referrals: Tatiana Thomson MD [Primary Care Provider, Family Practice] - 4-7 days Discharge Diet: Advance as tolerated Discharge Activity: Resume usual activity Patient Instructions: Urinary Tract Infection in Men (ED) Print Language: Egyptian Coding Level of Care Code ED Renal Dialysis Rn for Lalo Jackson
[2025-01-06 09:15] LABS: Hematocrit 44.1 % (37-53); Hemoglobin 15.70 g/dL (11.27-16.99); Mean Corpuscular HGB Conc 35.6 g/dL (30-55); Mean Corpuscular Hemoglobin 33.3 pg (27-33); Mean Corpuscular Volume 93.6 fl (82-101); Nucleated Red Blood Cells % 0 %; Platelet Count 197 10^3/cmm (157-399); Red Blood Count 4.71 10^6/uL (3.85-5.65); White Blood Count 7.12 10^3/uL (3.29-11.43)
[2025-01-06 09:33] LABS: Alanine Aminotransferase 45 U/L (0-41); Albumin Level 4.2 g/dL (3.5-5.2); Alkaline Phosphatase 102 U/L (40-130); Anion Gap 15.5 (5-19); Aspartate Amino Transferase 25 U/L (0-40); Blood Urea Nitrogen 15 mg/dL (8-23); Calcium 9.2 mg/dL (8.5-10.5); Carbon Dioxide 24 mmol/L (22-29); Chloride 102 mmol/L (98-107); Creatinine Clr Calc Pharmacy 100.0195; Globulin 2.9 g/dL (1.3-4.6); Glucose 181 mg/dL (65-115); Osmolality Calculated 289 mOsm/kg (285-295); Potassium 4.5 mmol/L (3.5-5.1); Sodium 137 mmol/L (136-145); Thyroid Stimulating Hormone 2.03 uIU/mL (0.27-4.20); Total Protein 7.1 g/dL (6.6-8.7)
[2025-01-06 10:06] VITALS: O2SAT 95
[2025-01-06 10:22] LABS: Add Urine Microscopic? YES
--- OUTSIDE RECORDS SUMMARY | 2025-01-06 19:00 | XMS_ITS | Patient Health Record ---
Author Organization [facility] Address [address] [facility] [place] [address] Support Name Relationship Address Phone Melvin Yan Guarantor Unknown [phone] Reason For Referral No Information Problems Problem Type SNOMED Code ICD Code Onset Dates Problem Status W/U Status Risk Notes Problem Shortness of breath (880247080) Shortness of breath (R06.02) Active confirmed [id number] 73- Problem Electrocardiogram abnormal (207524601) Abnormal electrocardiogram [ECG] [EKG] (R94.31) Active confirmed [id number] 73-Snomed Descripti on:Electr ocardiogr am abnormal Plan Of Treatment No Information
--- OUTSIDE RECORDS SUMMARY | 2025-01-06 19:01 | XMS_ITS | Patient Health Record ---
Author Organization [facility] Address [address] [place] [address] Care Team Providers Care [employer] Teacher Name Role Phone NguyễnmelindaKelli Starr Unavailable Reason For Referral No Information Problems Problem Type SNOMED Code ICD Code Onset Dates Problem Status W/U Status Risk Notes Problem Shortness of breath (931625584) Shortness of breath (R06.02) Active confirmed [id number] 3- Problem Abnormal electrocardiogram [ECG] [EKG] (R94.31) Active confirmed Jordan-[id number] [id number] 3-Snomed Descriptio n:Electroc ardiogram abnormal Encounters Encounter Location Date Provider Diagnosis [facility] [address] [place] [address] 12/09/2024 Kelli Jerry Plan Of Treatment Next Appt Details Provider Name:Kelli Slaughter Nguyễn [place], 03/16/2025 09:40:00 AM, [address] [place], [address], Insurance Providers Payer Name Payer Address Payer Phone Subscriber Number Group Number Insured Name Patient Relationship to Insured Coverage Start Date Coverage End Date [employer] [address] [place] [phone] [id number] Melvin Yan Self - patient is the insured
--- OUTSIDE RECORDS SUMMARY | 2025-01-06 19:01 | XMS_ITS | Clinical Summary ---
Author Organization [facility] Address [address] [facility] Attn: Epic Prelude ADT [place] [address] Care Team Providers Care Potato Picker Name Role Phone Nirav Barakat MD Primary Care Provider [phone] Allergies No known active allergies Medications terazosin (HYTRIN) 1 mg capsule Take 1 Capsule (1 mg) by mouth daily at bedtime. 30 Capsule 3 7 Active finasteride (PROSCAR) 5 mg tablet Take 1 Tablet (5 mg) by mouth daily. 30 Tablet 3 7 Active mirabegron (MYRBETRIQ) 25 mg Extended Release 24 hour tabletIndication s:Lower urinary tract symptoms (LUTS),Benign prostatic hyperplasia, presence of lower urinary tract symptoms unspecified, unspecified morphology Take 1 Tablet (25 mg) by mouth daily. 28 Tablet 0 7 Active [place] 160 mg Capsule Take by mouth daily . 7 Active sulfamethoxazole -trimethoprim (BACTRIM DS) 800-160 mg tablet Take 1 Tablet by mouth 2 times daily. 7 Active psyllium seed, with sugar, (FIBER ORAL) Take 1 Caplet by mouth 2 times daily. 7 Active amLODIPine (NORVASC) 5 mg tablet Take 5 mg by mouth daily. 7 Active Cetirizine 10 mg Capsule Take 1 Tablet by mouth late in the day . 7 Active FLUTICASONE PROPIONATE, BULK, MISC 1 Doyline by Mis.(Non-Drug; Combo Route) route late in the day Both nares. 7 Active HYDROcodone-acet aminophen (NORCO) 5-325 mg tablet Take 1 Tablet by mouth 2 times daily . 7 Active benazepriL (LOTENSIN) 20 mg tablet Take 20 mg by mouth daily. Active budesonide-formo teroL (SYMBICORT) 160-4.5 mcg/actuation HFA Aerosol Inhaler Take 2 Puffs by inhalation 2 times daily. Active coenzyme Q10 100 mg Capsule Take 100 mg by mouth daily. Active fish oil-omega-3 fatty acids 340-1,000 mg Capsule Take 1 Capsule by mouth 2 times daily . Active Multivits/Iron Fum/FA/D3/Lycop (MULTI FOR HIM ORAL) Take 1 Tablet by mouth daily . Active zinc 50 mg Tablet Take 50 mg by mouth daily . Active garlic 1,000 mg Capsule Take by mouth daily . Active Active Problems Problem Noted Date Diagnosed Date Urinary retention 01/21/2017 BPH (benign prostatic hyperplasia) 11/26/2016 Lower urinary tract symptoms (LUTS) 11/26/2016 Immunizations Immunization Administration Dates Next Due Influenza Seasonal Unspecified Formulation IM Social History Tobacco Use Types Packs/Day Years Used Date Smoking Tobacco: Former Smokeless Tobacco: Never Comments:Quit smoking: Qit i n 1986 Alcohol Use Standard Drinks/Week Comments Yes 0 (1 standard drink = 0.6 oz pur e alcohol) Sex and Gender Information Value Date Recorded Sex Assigned at Not on file Legal Sex Male 2:44 AM 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 Gender Identity Not on file Sexual Orientation Not on file Last Filed Vital Signs Vital Sign Reading Time Taken Comments Blood Pressure 135/79 07/22/2017 11:01 AM 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 Pulse 67 07/22/2017 11:01 AM 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 Temperature 36.8 C (98.2 F) 01/18/2017 7:03 PM CDT Respiratory Rate 20 01/18/2017 7:03 PM CDT Oxygen Saturation - - Inhaled Oxygen Concentration - - Weight 115.2 kg (254 lb) 07/22/2017 11:01 AM 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 Height 177.8 cm (5' 10 ) 07/22/2017 11:01 AM 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 Body Mass Index 36.45 07/22/2017 11:01 AM 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 Plan of Treatment Health Maintenance Due Date Last Done Comments RSV VACCINE (60+ or ) (1 - 1-dose 75+ series) 2022 INFLUENZA VACCINE (#1) 2024 , 04/03/2019, 03/21/2018, Additional history exists DTAP/TDAP/TD VACCINES (3 - T d or Tdap) 12/26/2031 12/25/2021, 04/16/2012, 04/11/2010, Additional history exists ZOSTER VACCINE Completed 05/30/2021, 12/28/2020 PNEUMOCOCCAL VACCINE 50+ YEARS Completed 0 10/03/2021, 07/24/2019, 08/20/2014, Additional history exists Insurance * Guarantor: ANNMARIE YAN Account Type Relation to Patient Date of Phone Billing Address Personal/Family [address] [place] [id number] [employer] ([employer]) [facility] Care Teams Potato Picker Relationship Specialty Start Date End Date Nirav Barakat MD [address] [facility] [place] [address] PCP - General Family Practice 08/30/17
--- OUTSIDE RECORDS SUMMARY | 2025-01-06 19:01 | XMS_ITS | Patient Health Record ---
Author Organization [facility] Address [address] [place], [place] [id number] Care Team Providers Care Circular Clerk Name Role Phone [facility] Primary Care Provider Steve Berger MD Unavailable [phone] [place], [place] Unavailable Unavailable Shelbie Shaffer Unavailable [phone] Allergies Allergen (clinical drug ingredient) Drug/Non Drug Allergy documented on EMR Reaction Allergy Type Onset Date Status terazosin terazosin Unknown Drug Allergy Inactiv e doxazosin doxazosin Unknown Drug Allergy Inactiv e risperidone risperidone Unknown Drug Allergy [place] ctive Results Component Value Reference Range Notes Urine tox screen / MS if ind icated Reviewed date:03/26/2024 08:17:58 AM Interpretation:Consistent Performing Lab: Notes/Report: Consistent Reason For Referral Diagnosis 1 Other chronic pain ( G89.29) Referring Provider First Name [place] Leonardo ff Referring Provider Last Name [place] Referred Organization [facility] Referred Provider Steve Cruz Referred Address [address], [id number], Referred Provider Specialty Pain Managem ent Referral Priority Routine Referring Provider First Name [place] Leonardo ff Referring Provider Last Name [facility] Organization [facility] Referred Provider Steve Cruz Referred Address [address], [id number], Referred Provider Specialty Pain Managem ent Referral Priority Routine Medications Medication SIG (Take, Route, Frequency, Duration) Notes Start Date End Date Status valsartan 160 mg 1/2 tab orally once a day Active budesonide-formoterol 80 mcg-4.5 mcg/inh 2 puff(s) inhaled 2 times a day; Duration: 30 day(s) Active Calcium Concentrate Active cetirizine 10 mg 1 tab orally once a day Active chlorthalidone 25 mg 1 tab orally once a day Active fluorouracil topical 1% 1 ankush applied topically 2 times a day; Duration: 30 day(s) Active lidocaine topical 5% 1 ankush applied topically 3 times a day Active meloxicam 7.5 mg 1 tab(s) orally once a day Active acetaminophen-hydrocodon e 325 mg-10 mg 1-2 tabs orally Q4-6H prn pain (max 8/day; hold within 4H of planned sleep); Duration: 28 days Do not fill prior to 11/08/24. ICD-10: G89.29 09/28/2024 Active acetaminophen-hydrocodon e 325 mg-10 mg 1-2 tabs orally Q4-6H prn pain (max 8/day; hold within 4H of planned sleep); Duration: 28 days ICD-10: G89.29 (auth as per 09/29/24 visit) 10/22/2024 Active albuterol 90 mcg/inh 2 puffs inhaled every 6 hours Active multivitamin Active amLODIPine 10 mg 1 tab orally once a day Active [place]-3 1000 mg 1 cap(s) orally once a day; Duration: 30 day(s) Active apixaban 5 mg as directed orally 2 times a day; Duration: 30 day(s) Active sertraline 100 mg 1 tab orally once a day Active atorvastatin 80 mg 1/2 tab orally once a day Active Social History Tobacco Use: Social History Observation Description Date Details (start date - stop date) Former Smoker NA - NA Tobacco use: Question Answer Notes : former smoker When did you stop smoking? 1984 AUDIT-C (Standard) Question Answer Notes Did you have a drink contain ing alcohol in the past year? Yes How often did you have six o r more drinks on one occasion in the past year? 2 to 4 times a month (2 points) How many drinks did you have on a typical day when you were drinking in the past year? 1 or 2 drinks (0 point) How often did you have a dri nk containing alcohol in the past year? 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) Active confirmed Problem Other specified anxiety disorders (F41.8) Active confirmed Problem Sleep disorder (27594226) Other sleep disorders (G47.8) Active confirmed Problem Chronic pain (76567682) Other chronic pain (G89.29) Active confirmed Problem Essential hypertension (99527865) Essential (primary) hypertension (I10) Active confirmed Problem Acquired spondylolisthesis (248536326) Spondylolisthesis , lumbar region (M43.16) Active confirmed Problem Post-laminectomy syndrome (68099010) Postlaminectomy syndrome, not elsewhere classified (M96.1) Active confirmed Problem Long-term current use of drug therapy (775383391) 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 (Z79.899) Active confirmed Problem Neurogenic claudication (657405667) Spinal stenosis, lumbar region with neurogenic claudication (M48.062) Active confirmed Problem Pain in lumbar spine (385043997) Vertebrogenic low back pain (M54.51) Active confirmed Vital Signs Temperature 97.8 degrees Fahrenheit 09/29/2024 Oximetry 96 % 09/29/2024 Blood pressure diastolic 70 mm Hg 09/29/2024 Height 70.5 in 09/29/2024 Blood pressure systolic 129 mm Hg 09/29/2024 Weight 254.0 lbs 09/29/2024 BMI 35.93 kg/m2 09/29/2024 Encounters Encounter Location Date Provider Diagnosis [facility] [address] [facility] [place], [place] [id number] 01/30/2024 Shelbie Hsu Other chronic pain G89.29 ; Vertebrogenic low back pain M54.51 and Other sleep disorders G47.8 [facility] [id number] [facility] [place], [place] [id number] 03/26/2024 Steve Cruz Other chronic pain G89.29 ; Vertebrogenic low back pain M54.51 ; Other sleep disorders G47.8 and 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 Z79.891 [facility] [place] [place] [address] [place], [place] [id number] 06/09/2024 Steve Cruz Other chronic pain G89.29 ; Vertebrogenic low back pain M54.51 and Other sleep disorders G47.8 [facility] [address] [place], [place] [id number] 07/28/2024 Steve Cruz Other chronic pain G89.29 ; Vertebrogenic low back pain M54.51 ; Essential (primary) hypertension I10 and Other sleep disorders G47.8 [facility] [address] [place], [place] [id number] 09/29/2024 Steve Cruz Other chronic pain G89.29 ; Vertebrogenic low back pain M54.51 and Other sleep disorders G47.8 [facility] [address] [place], [place] [id number] 02/27/2024 Steve Cruz [facility] [address] [place] [id number] 04/22/2024 Steve Cruz [facility] [address] [place] [id number] 07/07/2024 Steve Cruz [facility] [address] [place] [id number] 07/20/2024 Steve Cruz [facility] [address] [place], [place] [id number] 08/25/2024 Steve Cruz [facility] [address] [place] [id number] 10/22/2024 Steve Cruz Assessments Encounter Date Diagnosis (ICD Code) Assessment Notes Treatment Notes Treatment Clinical Notes Section Notes 03/26/2024 Other chronic pain (ICD-10 - G89.29) Patient reports that taking his pain medication allows him to enjoy his woodworking hobby and 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 Plan to continue oral opioid medication management. 03/26/2024 Vertebrogenic low back pain (ICD-10 - M54.51) Chronic axial lumbosacral spine pain. 07/28/2024 Other chronic pain (ICD-10 - G89.29) Patient reports that taking his pain medication allows him to enjoy his woodworking hobby. Plan to continue oral opioid medication management. 09/29/2024 Other chronic pain (ICD-10 - G89.29) Patient reports that taking his pain medication allows him to enjoy his woodworking hobby. Plan to continue oral opioid medication at today's visit. 06/09/2024 Other chronic pain (ICD-10 - G89.29) Patient reports that taking his pain medication allows him to work on his truck. Plan to continue oral opioid medication management. 01/30/2024 Other chronic pain (ICD-10 - G89.29) Patient reports that taking his pain medication allows him to enjoy his woodworking hobby. Plan to continue oral opioid medication management. 01/30/2024 Vertebrogenic low back pain (ICD-10 - M54.51) Chronic axial lumbosacral spine pain. 06/09/2024 Other sleep disorders (ICD-10 - G47.8) Plan to continue to restrict opioid use in relation to sleep for safety concerns. 06/09/2024 Vertebrogenic low back pain (ICD-10 - M54.51) Chronic axial lumbosacral spine pain. 01/30/2024 Other sleep disorders (ICD-10 - G47.8) Plan to continue to restrict opioid use in relation to sleep for safety concerns. 09/29/2024 Vertebrogenic low back pain (ICD-10 - M54.51) Chronic axial lumbosacral spine pain. 07/28/2024 Essential (primary) hypertension (ICD-10 - I10) Education sheet given at today's visit; patient to address with PCP. 07/28/2024 Vertebrogenic low back pain (ICD-10 - M54.51) Chronic axial lumbosacral spine pain. 09/29/2024 Other sleep disorders (ICD-10 - G47.8) Plan to continue to restrict opioid use in relation to sleep for safety concerns. 03/26/2024 Other sleep disorders (ICD-10 - G47.8) Plan to continue to restrict opioid use in relation to sleep for safety concerns. 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 This places the patient in the low risk category. Plan urine toxicology screen today to monitor for presence of any unprescribed or illicit controlled substance(s), as well as prescribed hydrocodone. 07/28/2024 Other sleep disorders (ICD-10 - G47.8) Plan to continue to restrict opioid use in relation to sleep for safety concerns. 06/09/2024 Other 7 day printed prescription given to patient for local fill while awaiting [facility]. [facility] more than 1 month of opioid prescriptions at a time, remaining eRx will be sent in 28 days. The service was provided by MIRIAN Nevarez, as part of the ongoing care plan established by Steve Cruz MD, who was present in the office for direct supervision during the encounter. 03/26/2024 Other [facility] to [facility] more than 1 month of opioid prescriptions at a time, remaining eRx will be sent in 28 days. The service was provided by MIRIAN Nevarez, as part of the ongoing care plan established by Steve Cruz MD, who was present in the office for direct supervision during the encounter. 07/28/2024 Other [facility] to [facility] more than 1 month of opioid prescriptions at a time, remaining eRx will be sent in 28 days. The service was provided by MIRIAN Nevarez, as part of the ongoing care plan established by Steve Cruz MD, who was present in the office for direct supervision during the encounter. 09/29/2024 Other The service was provided by MIRIAN Nevarez, as part of the ongoing care plan established by Steve Cruz MD, who was present in the office for direct supervision during the encounter. Patient was provided with a letter at today's visit informing patient that this clinic is closing due to Dr. Cruz's mcc; see scanned document. Terminal prescriptions were given to the patient along with tapering instructions. [facility] to [facility] more than 1 month of opioid prescriptions at a time, remaining eRx will be sent in 28 days; printed prescription given to patient for fill in 56 days. 01/30/2024 Other Due to the [facility]'s inability to store more than 1 month of opioid prescriptions at a time, remaining eRx will be sent in 28 days. Plan Of Treatment No Information Insurance Providers Payer Name Payer Address Payer Phone Subscriber Number Group Number Insured Name Patient Relationship to Insured Coverage Start Date Coverage End Date [employer] [address] [place] [id number] Melvin Yan Self - patient is the insured Medical (General) History Medical History History ICD Code Low back pain Lumbar spondylosis, spinal s tenosis, spondylolisthesis and post-laminectomy syndrome Sacroiliitis Cervicalgia Left knee pain Alcohol abuse (history of) Abnormal electrocardiogram Anxiety and depression Chronic fatigue Chronic obstructive pulmonary disease Pleurisy, history of multiple episodes Hyperlipidemia Hypertensive heart disease without heart failure Insomnia Post traumatic stress disorder Prediabetes Benign prostatic hypertrophy Hypertension Dysrhythmia (history of pacemaker implan tation) Bladder / voiding issue Sleep disorder (have discuss ed getting a sleep study and possible treatment, however, patient declined this treatment option) Obesity, moderate Surgical History Surgery Date(Month/Year) Appendectomy, performed in [place], [place] , 1971 Back surgery, performed at the [facility] in [place], [place], 1999 Back surgery, performed at the [place], [place], 2002 Prostate surgery, 12/17/18 Placement of pacemaker, performed at [facility] by Dr. Dueñas, 02/27/22 Knee surgery, left, performed at [facility] by Dr. Andino, 09/19/23
--- OUTSIDE RECORDS SUMMARY | 2025-01-06 19:01 | XMS_ITS | Clinical Summary ---
Author Organization [facility] Address [address] [place] [address] Care Team Providers Care Harvest Contractor Name Role Phone Nirav Barakat MD Primary Care Provider [phone] Allergies No known active allergies Medications Cetirizine 10 mg Capsule Take 1 Tablet by mouth late in the day . Active FLUTICASONE PROPIONATE, BULK, MISC 1 Shelby by Misc.(Non-Drug; Combo Route) route late in the day Both nares. Active budesonide-form oterol (SYMBICORT) 160-4.5 mcg/actuation HFA Aerosol Inhaler Take 2 Puffs by inhalation 2 times daily. Active HYDROcodone-wili taminophen (NORCO) 5-325 mg tablet Take 1 Tablet by mouth 2 times daily . Active benazepril (LOTENSIN) 20 mg tablet Take 20 mg by mouth daily. Active amLODIPine (NORVASC) 5 mg tablet Take 5 mg by mouth daily. Active fish oil-omega-3 fatty acids 340-1,000 mg Capsule Take 1 Capsule by mouth 2 times daily . Active Garlic 1,000 mg Capsule Take by mouth daily . Active zinc 50 mg Tablet Take 50 mg by mouth daily . Active [place] 160 mg Capsule Take by mouth daily . Active MULTIVITS/IRON FUM/FA/D3/LYCOP (MULTI FOR HIM ORAL) Take 1 Tablet by mouth daily . Active sulfamethoxazol e-trimethoprim (BACTRIM DS) 800-160 mg tablet Take 1 Tablet by mouth 2 times daily. Active coenzyme Q10 100 mg Capsule Take 100 mg by mouth daily. Active PSYLLIUM SEED, WITH DEXTROSE, (FIBER ORAL) Take 1 Caplet by mouth 2 times daily. Active mirabegron (MYRBETRIQ) 25 mg Extended Release 24 hour tabletIndicatio ns:[facility] [id number] LOT [id number] EXP 05/14 Take 1 Tablet (25 mg) by mouth daily. 28 Tablet 7 Active terazosin (HYTRIN) 1 mg capsule Take 1 Capsule (1 mg) by mouth daily at bedtime. 30 Capsule 3 7 Active finasteride (PROSCAR) 5 mg tablet Take 1 Tablet (5 mg) by mouth daily. 30 Tablet 3 7 Active Active Problems Problem Noted Date Diagnosed Date Urinary retention 01/21/2017 BPH (benign prostatic hyperplasia) 11/26/2016 Lower urinary tract symptoms (LUTS) 11/26/2016 Immunizations Immunization Administration Dates Next Due Influenza Seasonal Unspecified Formulation IM Social History Tobacco Use Types Packs/Day Years Used Date Smoking Tobacco: Former Smokeless Tobacco: Never Comments:Qit in 1986 Alcohol Use Standard Drinks/Week Comments Yes 0 (1 standard drink = 0.6 oz pur e alcohol) Beer once in a while Sex and Gender Information Value Date Recorded Sex Assigned at Not on file Legal Sex Male 11:13 AM CDT Gender Identity Not on file Sexual Orientation Not on file Last Filed Vital Signs Vital Sign Reading Time Taken Comments Blood Pressure 135/79 07/22/2017 11:01 AM SHELVING SUPERVISOR Pulse 67 07/22/2017 11:01 AM SHELVING SUPERVISOR Temperature 36.8 C (98.2 F) 01/18/2017 7:03 PM CDT Respiratory Rate 20 01/18/2017 7:03 PM CDT Oxygen Saturation 95% 01/18/2017 7:03 PM CDT Inhaled Oxygen Concentration - - Weight 115.2 kg (254 lb) 07/22/2017 11:01 AM SHELVING SUPERVISOR Height 177.8 cm (5' 10 ) 07/22/2017 11:01 AM SHELVING SUPERVISOR Body Mass Index 36.45 07/22/2017 11:01 AM SHELVING SUPERVISOR Plan of Treatment Health Maintenance Due Date Last Done Comments DTAP/TDAP/TD VACCINES (1 - Tdap) 1966 PNEUMOCOCCAL VACCINE 50+ YEARS (1 of 1 - PCV) 03/05/19 97 ZOSTER VACCINE (1 of 2) 1997 RSV VACCINE (60+ or ) (1 - 1-dose 75+ series) 2022 INFLUENZA VACCINE (#1) 2024 02/28/2016 Insurance RX [employer] (INTERNAL) [facility] [employer] [facility] MEDICARE PART A AND B [facility] Advance Directives For more information, please contact: [phone] * Full Code (Latest Code Status on File) Date Activated Date Inactivated Comments 01/08/2017 8:49 AM 01/08/2017 5:51 PM Care Teams Harvest Contractor Relationship Specialty Start Date End Date Nirav Barakat MD [address] [place] [address] PCP - General Family Practice 08/30/17
== END 2025-01-06 10:48 | disposition home or self-care (01) ==
PROVIDERS: Emergency Provider Emergency Medicine; PCP Family Medicine
DX: N30.00 Acute cystitis without hematuria (principal); R53.1 Weakness; Z79.01 Long term (current) use of anticoagulants; E78.5 Hyperlipidemia, unspecified; J44.9 Chronic obstructive pulmonary disease, unspecified
CPT/HCPCS: 36415; 36416; 71045; 80053; 81001; 82962; 84443; 85025; 87086; 93005; 99285

== ENCOUNTER → 2025-03-18 11:19 | Outpatient (BNVA) | payer OTHER, SELFPAY | PROVIDERS: PCP Family Medicine Geriatric Medicine; Visit Provider Internal Medicine Cardiovascular Disease | DX: I35.0 Nonrheumatic aortic (valve) stenosis (principal); J44.9 Chronic obstructive pulmonary disease, unspecified; Z95.0 Presence of cardiac pacemaker; Z87.891 Personal history of nicotine dependence; R06.02 Shortness of breath; R07.9 Chest pain, unspecified; R06.09 Other forms of dyspnea | CPT/HCPCS: 36415; 80048; 83880; 93005; 99215 ==

== ENCOUNTER 2025-03-24 08:59 | Outpatient (CLI) | payer OTHER, SELFPAY ==
--- NOTE | 2025-03-24 09:10 | XR_ITS ---
WS: [id number] Exam: XR lumbar spine 6V w f/e [id number] Date/Time of Exam: 03/24/2025 9:13 AM Reason For Exam: SPONDYLOSIS OF LUMBOSACRAL REGION WO MYELOPATHY DLP: Comparison 09/23/2021. No acute fracture. There is grade 1 spondylolisthesis of L3 on L4. There is posterior fusion from L4-S1 stable in alignment. A spacer noted at L4-5. The RIGHT S1 pedicle screw has fractured and is unchanged since the last exam. Degenerative disc narrowing at all levels. Facet arthropathy at all levels. Mild levoscoliosis. No additional instability identified on flexion and extension views. XR/XR lumbar spine 6V w f/e [id number] IMPRESSION: 1. Grade 1 degenerative anterolisthesis of L3 on L4 stable in appearance. 2. Posterior fusion from L4-S1 remaining in satisfactory alignment without hernandez ge. There is fracture of the RIGHT S1 pedicle screw which was noted previously. 3. Moderately advanced degenerative changes and mild levoscoliosis.
== END 2025-03-24 09:00 | disposition home or self-care (01) ==
PROVIDERS: PCP Family Medicine Geriatric Medicine; Visit Provider Student in an Organized Health Care Education/Training Program
DX: M17.12 Unilateral primary osteoarthritis, left knee (principal)
CPT/HCPCS: 20610; 72114; 99213; J3301; J9999

== ENCOUNTER 2025-04-08 08:10 | Outpatient (CLI) | payer OTHER, SELFPAY ==
--- NOTE | 2025-04-08 08:30 | USCV_ITS ---
Melvin Yan Age: 80 Gender: M : 1945 Exam Date: 04/08/2025 08:34 Ordering Phys: Lisset Dueñas MD ([email or web address]) Technologist: Exam Location: [facility] Indication: as BP: 125 / 70 HR: 70 Rhythm: Sinus Technical Quality: Adequate MEASUREMENTS (Male / Female) Normal Values 2D ECHO LV Diastolic Diameter PLAX 4.7 cm 4.2 - 5.9 / 3.9 - 5.3 cm IVS Diastolic Thickness 1.3 cm 0.6 - 1.0 / 0.6 - 0.9 cm IVS Systolic Thickness 1.9 cm LVPW Diastolic Thickness 1.1 cm 0.6 - 1.0 / 0.6 - 0.9 cm LVPW Systolic Thickness 2.1 cm LVOT Diameter 2.0 cm LV Ejection Fraction 2D Teich 67.1 % LV Ejection Fraction MOD 4C 51.5 % LV Ejection Fraction MOD 2C 62.1 % LV Ejection Fraction 2C AL 63.6 % LA Diameter 4.4 cm RA Systolic Volume 4C AL 54.6 ml RA Systolic Volume 4C MOD 51.6 ml Aorta at Sinotubular Diameter 3.2 cm M-MODE LA Ao Ratio MM 1.4 AV Cusp Separation MM 1.7 cm DOPPLER AV Peak Velocity 202.0 cm/s LVOT Peak Velocity 70.0 cm/s AV Area Cont Eq vti 1.3 cm squared AV Area Cont Eq pk 1.1 cm squared MV Peak Velocity 117.0 cm/s MV Area PHT 3.9 cm squared Mitral E to A Ratio 1.1 TV Peak Velocity 258.5 cm/s TR Peak Velocity 276.0 cm/s TR Peak Gradient 30.5 mmHg TV Peak E Velocity 125.0 cm/s PV Peak Velocity 117.0 cm/s FINDINGS Left Ventricle Normal left ventricular size with a borderline low ejection fraction of 52 %. Abnormal septal motion consistent with pacemaker. Right Ventricle Catheter/pacemaker wire in the right ventricular cavity. Right Atrium Catheter/pacemaker wire in the right atrial cavity. Left Atrium Mildly increased left atrial size. IA Septum Normal interatrial septum. Mitral Valve Mild mitral annular calcification. Trace mitral valve regurgitation. Aortic Valve Thickened aortic valve. Tricuspid Valve Trace tricuspid valve regurgitation. Estimated pulmonary artery peak systolic pressure 34 mmHg Pulmonic Valve Pulmonic valve not well visualized. Pericardium No pericardial effusion. Aorta Plaque seen in the ascending aorta. IVC Inferior vena cava not visualized. CONCLUSIONS Normal left ventricular size with a borderline low ejection fraction of 52%. Abnormal septal motion consistent with pacemaker. Catheter/pacemaker wire in the right atrial cavity. Mildly increased left atrial size. Mild mitral annular calcification. Trace mitral valve regurgitation. Thickened aortic valve with features of aortic valve sclerosis. Trace tricuspid valve regurgitation. Estimated pulmonary artery peak systolic pressure 34 mmHg. There is no pericardial effusion. Compared to the study from 02/18/2022, there may not be a significant change Dr Lisset Dueñas MD FACC (Electronically Signed) Final Date: 11 April 2025 19:43 S
== END 2025-04-08 08:11 | disposition home or self-care (01) ==
PROVIDERS: PCP Family Medicine Geriatric Medicine; Visit Provider Internal Medicine Cardiovascular Disease
DX: R06.09 Other forms of dyspnea (principal); Z95.0 Presence of cardiac pacemaker; I51.7 Cardiomegaly; I34.9 Nonrheumatic mitral valve disorder, unspecified; I34.0 Nonrheumatic mitral (valve) insufficiency; I35.0 Nonrheumatic aortic (valve) stenosis; I36.1 Nonrheumatic tricuspid (valve) insufficiency; I37.1 Nonrheumatic pulmonary valve insufficiency
CPT/HCPCS: 93306